=== PATIENT | male | born 1965 | race Caucasian/White ===

== ENCOUNTER 2020-07-11 07:44 | Outpatient (REF) | payer MEDICARE, MEDICAID, SELFPAY ==
--- NOTE | ~2020-07-11 | US_ITS ---
EXAMINATION: US ABDOMEN COMPLETE CLINICAL INFORMATION: Fatty change of liver. COMPARISON: CT abdomen and pelvis without contrast dated 10/27/2018. Ultrasound abdomen complete dated 01/09/2017 and 03/03/2012. TECHNIQUE: Real-time imaging of the abdominal viscera. Technically difficult study secondary to bowel gas and body habitus. FINDINGS: PANCREAS: Visualized body of the pancreas is homogeneous in echotexture. Rest of pancreas obscured by overlying gas. ABDOMINAL AORTA: The proximal, mid, and distal segments are normal in caliber. INFERIOR VENA CAVA: Visualized portions are normal. LIVER: The liver is normal in size. The liver contour is normal. The liver is diffusely echogenic. No focal hepatic lesion. There is no intrahepatic biliary duct dilatation seen. GALLBLADDER: Surgically absent. COMMON BILE DUCT: Normal in caliber measuring 0.6 cm in diameter. RIGHT KIDNEY: There are echogenic calcified vessels. No hydronephrosis. No renal calculi or focal parenchymal lesions. The kidney measures 11.6 cm in maximum dimension. LEFT KIDNEY: There are echogenic calcified vessels. No hydronephrosis. No renal calculi or focal parenchymal lesions. The kidney measures 12.2 cm in maximum dimension. SPLEEN: The spleen measures 13.7 cm in maximum dimension. FREE FLUID: None. US/US abdomen complete IMPRESSION: Mild hepatic steatosis. No focal lesion seen. Limited visualization of pancreas. There are echogenic calcified vessels in both kidneys but no echogenic stones or hydronephrosis.
== END 2020-07-11 07:45 | disposition home or self-care (01) ==
LOC: HO.US 07:44
PROVIDERS: PCP Family Medicine; Visit Provider Family Medicine
DX: K76.0 Fatty (change of) liver, not elsewhere classified (principal)
CPT/HCPCS: 76700

== ENCOUNTER 2020-12-26 10:09 | Outpatient (REF) | payer MEDICARE, MEDICAID, SELFPAY | END 2020-12-26 10:10 | disposition home or self-care (01) | LOC: HO.HMGCLDS 10:09 | PROVIDERS: PCP Family Medicine; Visit Provider Internal Medicine | DX: Z20.822 Contact with and (suspected) exposure to COVID-19 (principal) | CPT/HCPCS: C9803; U0003; U0005 ==

== ENCOUNTER 2021-04-14 09:10 | Outpatient (REF) | payer MEDICARE, MEDICAID, SELFPAY ==
--- NOTE | ~2021-04-14 | MM_ITS ---
EXAMINATION: BONE DENSITOMETRY CLINICAL INDICATION: Osteoporosis. COMPARISON: None (current study represents initial baseline exam). TECHNIQUE: Using a [employer] DXA System (software version: 13.1) manufactured by [employer], dual-energy x-ray absorptiometry was performed of the lumbar spine and left hip. The images are of good technical quality. Summary results are attached. FINDINGS: AP SPINE L1-L4: BMD 1.369 g/cm2, Z-score 0.8, T-score 1.2, normal. LEFT FEMUR, NECK: BMD 1.029 g/cm2, Z-score 0.0, T-score -0.3, normal. LEFT FEMUR, TOTAL: BMD 0.949 g/cm2, Z-score -1.1, T-score -1.1, osteopenia. IDENTIFIED RISK FACTORS: None listed. HISTORY OF FRACTURE: None listed. MEDICATIONS: Multivitamin. MM/XR DEXA axial skeleton IMPRESSION: 1. DIAGNOSIS: Osteopenia based on the lowest T-score value of -1.1 in the total femur applying World Health Organization criteria. 2. 10-YEAR FRACTURE RISK PREDICTION, FRAX: Major osteoporotic fracture (clinical spine, forearm, hip or shoulder) 2.1%. Hip fracture 0.1%. 3. Treatment Recommendations: NOF guidelines recommend consideration for treatment in postmenopausal women and men age 50 and older presenting with the following: -A hip or vertebral (clinical or morphometric) fracture. -T-score less than or equal to -2.5 at the femoral neck or spine after appropriate evaluation to exclude secondary causes. -Low bone mass at the hip or spine and a 10-year fracture probability by FRAX of greater than or equal to 3% for hip fracture or greater than or equal to 20% for major osteoporotic fracture based on the [place] adapted WHO algorithm. 4. Other Recommendations: All treatment decisions require clinical judgment and consideration of individual patient factors, including patient preferences, comorbidities, previous drug use, risk factors not captured in the FRAX model (e.g. frailty, falls, vitamin D deficiency, increased bone turnover, interval significant decline in bone density) and possible under or overestimation of fracture risk by FRAX. Additional medical evaluation for secondary cause of low bone mineral density may be appropriate. FUTURE SCAN RECOMMENDATION: People with diagnosed cases of osteoporosis or at high risk for fracture should have regular bone mineral density tests. For patients eligible for Medicare, routine testing is allowed once every 2 years. The testing frequency can be increased to one year for patients who have rapidly progressing disease, those who are receiving or discontinuing medical therapy to restore bone mass, or have additional risk factors.
== END 2021-04-14 09:11 | disposition home or self-care (01) ==
LOC: HO.MAMMO 09:10
PROVIDERS: PCP Family Medicine; Visit Provider Family Medicine
DX: Z13.820 Encounter for screening for osteoporosis (principal); M81.0 Age-related osteoporosis without current pathological fracture; M85.80 Other specified disorders of bone density and structure, unspecified site; Z79.899 Other long term (current) drug therapy
CPT/HCPCS: 77080

== ENCOUNTER 2022-12-07 08:20 | Inpatient (IN) | payer MEDICARE, MEDICAID, SELFPAY ==
[2022-12-07] VITALS (15 sets, daily range): BP systolic 108–159; BP diastolic 66–87; PULSE 94–127; RESP 14–28; TEMP 35.6–38.7; O2SAT 93–97; BMI 34.3
--- NOTE | ~2022-12-07 | XR_ITS ---
EXAMINATION: XR CHEST CLINICAL INFORMATION: ET tube COMPARISON: 03/14/2015 TECHNIQUE: Frontal view of the chest was obtained portably upright. FINDINGS: There is low lung volume bilaterally with by basilar atelectasis. Cardiomediastinal silhouette is prominent. There is an endotracheal tube seen with the tip approximately 3.7 cm above the alison. XR/XR chest 1V IMPRESSION: Bibasilar atelectasis and well-positioned endotracheal tube
--- NOTE | ~2022-12-07 | CT_ITS ---
EXAMINATION: CT ABDOMEN AND PELVIS WITH CONTRAST CLINICAL INFORMATION: Diffuse abdominal pain. COMPARISON: 10/27/2018 TECHNIQUE: Multidetector volumetric images were obtained from the superior aspect of the liver through the pubic symphysis following administration 85 mL of Omnipaque 350 intravenous contrast. Sagittal and coronal reformatted images were obtained on the technologist's workstation. Oral contrast: No This CT examination was performed using dose optimization techniques as appropriate, variously including the following: *Automated exposure control *Adjustment of mA and/or kV according to patient size (this includes techniques or standardized protocols for targeted exams where dose is matched to indication/reason for exam; i.e. extremities or head) *Use of iterative reconstruction technique DLP: 1057 mGy-cm FINDINGS: LUNG BASES: Trace pericardial effusion. LIVER, GALLBLADDER, AND BILIARY TREE: The liver is normal in size and contour with decreased attenuation. No focal hepatic lesion or biliary ductal dilatation is present. The gallbladder is surgically absent. There is a fluid collection adjacent to surgical clips in the gallbladder fossa measuring 3.0 x 2.5 cm. PANCREAS: No ductal dilatation. SPLEEN: Not enlarged. ADRENAL GLANDS: No adrenal masses. KIDNEYS AND URETERS: The kidneys are symmetric in size and enhancement. No hydronephrosis or perinephric stranding. BLADDER: Unremarkable. GASTROINTESTINAL TRACT: There is wall thickening of the sigmoid colon in the pelvis. There is associated extraluminal air within the sigmoid mesocolon with a focal collection of fluid and gas measuring 6.9 x 4.0 x 3.3 cm. There are extensive surrounding inflammatory changes and tiny pericolonic lymph nodes. There are few dilated small bowel loops adjacent to the area of inflammation measuring up to 4.2 cm possibly representing paralytic ileus. Appendix is within normal limits. LYMPH NODES: Subcentimeter retroperitoneal lymph nodes. VASCULAR: Normal caliber abdominal aorta PELVIC VISCERA: Unremarkable. OSSEOUS STRUCTURES: No destructive bone lesions. CT/CT abdomen pelvis w IV con IMPRESSION: Acute perforated sigmoid diverticulitis. Focal collection of fluid and gas in the sigmoid mesocolon measures 6.9 x 4.0 x 3.3 cm. Possible paralytic ileus of the small bowel in the region of inflammation. Enlarging fluid collection adjacent to surgical clips in the gallbladder fossa measuring 3.0 x 2.5 2.6 cm. Possible biloma. Consider MRI/MRCP for further evaluation. Hepatic steatosis. Findings were reviewed and discussed with Dr. Gotti 2:21 PM on 12/07/2022.
[2022-12-07 09:00] LABS: Basophils Percent Auto 0.2 % (0-2); Eosinophils Absolute Auto 0.1 X10*3/uL (0.0-0.4); Eosinophils Percent Auto 0.3 % (0-4); Hematocrit 44.4 % (42.0-52.0); Hemoglobin 15.7 g/dl (14.0-18.0); Imm Gran Abs Auto 0.19 X10*3/uL (0.00-0.03); Imm Gran Pct Auto 0.9 % (0.0-0.4); Lymphocytes Absolute Auto 0.9 X10*3/uL (1.2-4.9); Lymphocytes Percent Auto 4.4 % (20-40); MANUAL DIFF FLAG SCAN; Mean Corpuscular HGB Conc 35.4 g/dl (31.0-36.0); Mean Corpuscular Hemoglobin 33.3 pg (27.0-33.0); Mean Corpuscular Volume 94.1 fL (80.0-98.0); Mean Platelet Volume 9.3 fL (9.4-12.4); Monocytes Absolute Auto 1.6 X10*3/uL (0.1-1.2); Monocytes Percent Auto 7.9 % (2-11); Neutrophils Absolute Auto 17.5 x10*3/uL (2.0-8.3); Neutrophils Percent Auto 86.3 % (45-73); Platelet Count 289 X10*3/uL (160-400); Red Blood Count 4.72 X10*6/uL (4.60-5.80); Red Cell Distribution Width 12.6 % (11.0-16.0); SCAN SMEAR FLAG 1; White Blood Count 20.3 X10*3/uL (4.8-10.8)
[2022-12-07 09:18] LABS: Alanine Aminotransferase 20 U/L (0-40); Albumin Level 4.1 g/dL (3.5-5.0); Alkaline Phosphatase 52 U/L (39-117); Anion Gap 15 (12-20); Aspartate Amino Transferase 17 U/L (5-37); Bilirubin Direct 0.6 mg/dL (0.0-0.5); Bilirubin Total 1.3 mg/dL (0.0-1.0); Blood Urea Nitrogen 13 mg/dL (9-16); Calcium 9.5 mg/dL (8.4-10.2); Carbon Dioxide 20 mmol/L (22-29); Chloride 105 mmol/L (96-108); Creatinine Clr Calc Pharmacy 78.1; Estimated Glomerular Filt Rate 58; Glucose Random 166 mg/dL (60-115); Lipase 7 U/L (8-78); Potassium 3.8 mmol/L (3.3-5.1); Sodium 136 mmol/L (135-145); Total Protein 8.1 g/dL (6.5-8.0)
[2022-12-07 09:36] LABS: SLIDE REVIEW VERIFIED
[2022-12-07 09:59] LABS: Appearance Urine Clear; Color Urine Dark Yellow; Glucose Urine UA Negative (Negative); Leukocyte Esterase Urine Trace (Negative); Nitrite Urine Negative (Negative); PH 5.5 (5.0-9.0); Specific Gravity - Urine >= 1.030 (1.005-1.025); UMIC TRIGGER UACC YES; Urine Blood Small (1+) (Negative); Urine Ketones 15 mg/dL (Negative); Urine Protein 300 (3+) mg/dL (Neg-Trace)
[2022-12-07 10:13] LABS: Bacteria Urine None Seen (None Seen); Hyaline Casts Urine 0-2 /LPF (0-2); RBC Urine 0-2 /HPF (0-2); WBC Urine 0-5 /HPF (0-5)
--- NOTE | 2022-12-07 12:37 | ED_ITS ---
HPI - Abdominal Pain General Chief Complaint: Abdominal Pain Stated Complaint: abd pain Time Seen by Provider: 12/07/22 12:09 Source: patient Mode of arrival: ambulatory Limitations: no limitations History of Present Illness HPI narrative: 57 yo male with PMHx significant for diverticulitis, HIV, alcohol dependence, asthma, and HDL presenting to the ED today with shooting lower abdominal pain x3 days, worsening. Abomainal pain to bilateral lower abdomen, radiating to b/l flanks. States that eating makes this pain worse, has not eaten since last night. Last BM on arrival to ED, loose stools. No hematochezia or melena. Reports daily EtOH consumption, approximately 5 shots of liquor. Denies fever, chills, nausea, vomiting, dysuria or hematuria. Related Data Home Medications Medication Instructions Recorded Confirmed amlodipine 10 mg tablet 10 mg PO DAILY 12/07/22 12/07/22 aripiprazole 15 mg tablet 15 mg PO DAILY 12/07/22 12/07/22 bictegravir 50 mg-emtricitabine 1 tab PO BEDTIME 12/07/22 12/07/22 200 mg-tenofovir alafenam 25 mg tablet (Biktarvy) bupropion HCl 150 mg tablet,12 hr 150 mg PO BID 12/07/22 12/07/22 sustained-release famotidine 40 mg tablet 40 mg PO BEDTIME 12/07/22 12/07/22 lisinopril 40 mg tablet 40 mg PO DAILY 12/07/22 12/07/22 lorazepam 0.5 mg tablet 0.5 mg PO BID 12/07/22 12/07/22 mirtazapine 45 mg tablet 45 mg PO BEDTIME 12/07/22 12/07/22 montelukast 10 mg tablet 10 mg PO DAILY 12/07/22 12/07/22 rosuvastatin 5 mg tablet 5 mg PO DAILY 12/07/22 12/07/22 Allergies Allergy/AdvReac Type Severity Reaction Status Date / Time No Known Allergies Allergy Unverified 12/10/19 17:06 Review of Systems Review of Systems Constitutional: No fever, No chills, No fatigue, No malaise ENT/Mouth: No ear pain, No hearing loss, No nasal congestion, No sinus pain, No rhinorrhea, No sore throat Eyes: No eye pain, No swelling, No redness, No vision changes, No foreign body, No discharge Cardio: No chest pain, No palpitations, No dyspnea on exertion, No orthopnea, No edema Respiratory: No SOB, No cough, No sputum, No wheezing, No dyspnea, No hemoptysis GI: No nausea, No vomiting, No hematemesis, + abdominal pain, + diarrhea, No constipation, No hematochezia, No melena : No irregular bleeding, No dysuria, No frequency, No urgency, No hesitancy, No hematuria, MSK: No back pain, No neck pain, No joint pain, No myalgias Skin: No skin lesions, No rashes Neuro: No weakness, No numbness, No paresthesias, No LOC, No dizziness, No headache All other systems reveiwed and are negative. [facility] Past Medical History Attestation statement: The following information was validated with the patient. Source: old records reviewed and nursing notes reviewed Medical History (Updated 12/07/22 @ 17:00 by Iris Lira RN) Manic depression Hyperlipidemia Asthma ETOH abuse HIV (human immunodeficiency virus infection) Social History Social History Alcohol intake: current Alcohol intake frequency: 3 or more drinks per day Alcohol type: hard liquor Patient Tobacco Use Status: Tobacco use Unknown Smoked in Last 30 Days: No Use of substances other than those prescribed or required for medical reasons: Yes Substance Use Type: Marijuana Advance Directives: No Advance Directives Information Provided: No Physical Exam ED Vital Signs: Vital Signs - 24 hr 12/07/22 08:43 12/07/22 12:15 12/07/22 14:08 Temperature 96.1 F L 97.5 F Pulse Rate 127 H 113 H 112 H Respiratory Rate 18 14 20 Blood Pressure 125/70 133/85 123/80 Pulse Oximetry 96 97 95 Oxygen Delivery Method Room Air Room Air Room Air 12/07/22 15:15 12/07/22 15:24 12/07/22 16:41 Temperature 98.8 F 101.6 F H Pulse Rate 113 H 111 H Respiratory Rate 16 22 H 20 Blood Pressure 136/81 133/81 Pulse Oximetry 95 93 Oxygen Delivery Method Room Air Room Air 12/07/22 16:48 12/07/22 17:25 Temperature Pulse Rate 111 H 117 H Respiratory Rate 20 20 Blood Pressure 144/79 H 151/82 H Pulse Oximetry 94 94 Oxygen Delivery Method Room Air Room Air BMI result Body Mass Index 34.3 Vital signs notable for tachycardia, afebrile General: Toxic appearing, diaphoretic, noticeably uncomfortable Skin: Warm and dry. No rashes or lesions. Head: Normocephalic, atraumatic. EENT: Hearing is intact b/l. Conjunctiva clear. Sclera is anicteric. PERRLA. EOM intact. Moist mucous membranes. Neck: Supple without LAD. Normal ROM. Trachea midline.? Cardiac: Chest wall symmetric. Regular rate and rhythm. S1 and S1 appreciated. No MRG. No JVD. Lungs: CTA bilaterally. No rales, rhonchi, or wheezes. Normal respiratory effort without accessory muscle use. Abdomen: Healed scar consistent with previous cholecystectomy. No ecchyosis. Abdomen firm, distended, diffusely tender to palpation with guarding. Hypoactive bowel sounds throughout. No palpable masses.? Ext: Upper and lower extremities atraumatic. Full ROM throughout. Capillary refill <2 seconds in all extremities. Pulses 2+ equal and bilateral. No edema, cyanosis, or clubbing. Neuro: Alert and oriented x3. Normal speech. CN 2-12 grossly intact. Strength 5/5 intact throughout. Sensation intact to light touch. NV intact distally. Reflexes 2+ bilaterally. Ambulating with steady gait. Psych: Appropriate mood and affect. Responds appropriately to questions. Course Course Course Narrative: 1259-- Patient with leukocytosis to 20.3 with left shift. Normotensive and afebrile however tachycardic > infection suspected. Lactate, blood cultures, Zosyn ordered. Sepsis alert initiated. CT abdomen/pelvis ordered > concern for acute abdomen. Radiology aware. 4mg Morphine given. > chemistry reveals normal renal function. Lipase within normal limits. Urine without infection. 1433: Dr. Gotti's note: I took a critical result from the radiologist. Patient has a perforated sigmoid with a significant amount of free air and a large abscess collection I did discuss these findings with the patient and also with the covering surgeon, Dr. Webster who evaluated the patient in the emergency department. The patient will go directly to the operating room for further management. I did order a type and screen, morphine 4 mg IV, lactated Ringer's 1 L IV and then lactated Ringer's at 150 mL/hr. Patient already received Zosyn 3.375 mg IV. Medical Decision Making Medical Decision Making [facility] Narrative: 57 yo male with PMHx significant for diverticulitis, HIV, alcohol dependence, asthma, and HDL presenting to the ED today with shooting lower abdominal pain x3 days, worsening. Vital signs notable for tachycardia. Patient toxic appearing, diaphoretic, in obvious discomfort. Abdomen firm, distended, diffusely tender to palpation with guarding. Hypoactive bowel sounds throughout. No palpable masses.?Otherwise WNL. Clinical concern for appendicits vs pancreatitis vs vs diverticulitis vs bowel obstruction vs bowel perforation vs ischemic bowel > labs and imaging ordered. Unlikely ACS or dissection. Differential Diagnosis Differential Diagnoses: The differential diagnosis associated with the presentation includes Clinical concern for appendicits vs pancreatitis vs diverticulitis vs bowel obstruction vs bowel perforation vs ichemic bowel > labs and imaging ordered. Unlikely ACS or dissection. Admission/Observation Consideration of admission/observation: Escalation of care including admission/observation considered Admitted to surgery. Consult Healthcare Provider Management of the patient was discussed with: Tin Pourer (Dr. Webster, general surgery) Lab Data [facility] Lab Attestation statement: I reviewed the patient's lab results. See above course narrative. 12/07/22 08:53 12/07/22 08:53 Labs: Lab Results 12/07/22 12/07/22 12/07/22 Range/Units 08:53 09:52 12:56 WBC 20.3 H (4.8-10.8) X10*3/uL RBC 4.72 (4.60-5.80) X10*6/uL Hgb 15.7 (14.0-18.0) g/dl Hct 44.4 (42.0-52.0) % MCV 94.1 (80.0-98.0) fL MCH 33.3 H (27.0-33.0) pg MCHC 35.4 (31.0-36.0) g/dl RDW 12.6 (11.0-16.0) % Plt Count 289 (160-400) X10*3/uL MPV 9.3 L (9.4-12.4) fL Immature Gran % (Auto) 0.9 H (0.0-0.4) % Neut % (Auto) 86.3 H (45-73) % Lymph % (Auto) 4.4 L (20-40) % Banner % (Auto) 7.9 (2-11) % Eos % (Auto) 0.3 (0-4) % Baso % (Auto) 0.2 (0-2) % Lymph # (Auto) 0.9 L (1.2-4.9) X10*3/uL Banner # (Auto) 1.6 H (0.1-1.2) X10*3/uL Eos # (Auto) 0.1 (0.0-0.4) X10*3/uL Baso # (Auto) 0.0 (0.0-0.2) X10*3/uL Abs Immat Gran (auto) 0.19 H (0.00-0.03) X10*3/uL Absolute Neuts (auto) 17.5 H (2.0-8.3) x10*3/uL Absolute Nucleated RBC 0.000 (0.0-0.012) X10*3/uL Nucleated RBC % (auto) 0.0 (0.0-0.2) /100WBC Smear Tech's Comments VERIFIED Sodium 136 (135-145) mmol/L Potassium 3.8 (3.3-5.1) mmol/L Chloride 105 (96-108) mmol/L Carbon Dioxide 20 L (22-29) mmol/L Anion Gap 15 (12-20) BUN 13 (9-16) mg/dL Creatinine 1.27 (0.5-1.4) mg/dL Estim Creat Clear Calc 78.1 Estimated GFR 58 Random Glucose 166 H (60-115) mg/dL Lactic Acid 1.7 (0.5-2.0) mmol/L Calcium 9.5 (8.4-10.2) mg/dL Total Bilirubin 1.3 H (0.0-1.0) mg/dL Direct Bilirubin 0.6 H (0.0-0.5) mg/dL AST 17 (5-37) U/L ALT 20 (0-40) U/L Alkaline Phosphatase 52 (39-117) U/L Total Protein 8.1 H (6.5-8.0) g/dL Albumin 4.1 (3.5-5.0) g/dL Lipase 7 L (8-78) U/L Urine Color Dark Yellow Urine Appearance Clear Urine pH 5.5 (5.0-9.0) Ur Specific [place] >= 1.030 H (1.005-1.025) Urine Protein 300 (3+) H (Neg-Trace) mg/dL Urine Glucose (UA) Negative (Negative) mg/dL Urine Ketones 15 (Negative) mg/dL Urine Blood Small (1+) H (Negative) Urine Nitrite Negative (Negative) Ur Leukocyte Esterase Trace H (Negative) Urine RBC 0-2 (0-2) /HPF Urine WBC 0-5 (0-5) /HPF Ur Squamous Epith Cells 3-5 (0-2) /HPF Urine Bacteria None Seen (None Seen) Hyaline Casts 0-2 (0-2) /LPF Urine Opiates Screen Not Detected (Not Detect) Urine Fentanyl Screen Not Detected (Not Detect) Ur Barbiturates Screen Not Detected (Not Detect) Ur Phencyclidine Scrn POSITIVE H (Not Detect) Ur Amphetamines Screen Not Detected (Not Detect) U Benzodiazepines Scrn Not Detected (Not Detect) Urine Cocaine Screen Not Detected (Not Detect) U Marijuana (THC) Screen POSITIVE H (Not Detect) Ethyl Alcohol < 10 mg/dL Blood Type Antibody Screen 12/07/22 Range/Units 14:49 WBC (4.8-10.8) X10*3/uL RBC (4.60-5.80) X10*6/uL Hgb (14.0-18.0) g/dl Hct (42.0-52.0) % MCV (80.0-98.0) fL MCH (27.0-33.0) pg MCHC (31.0-36.0) g/dl RDW (11.0-16.0) % Plt Count (160-400) X10*3/uL MPV (9.4-12.4) fL Immature Gran % (Auto) (0.0-0.4) % Neut % (Auto) (45-73) % Lymph % (Auto) (20-40) % Banner % (Auto) (2-11) % Eos % (Auto) (0-4) % Baso % (Auto) (0-2) % Lymph # (Auto) (1.2-4.9) X10*3/uL Banner # (Auto) (0.1-1.2) X10*3/uL Eos # (Auto) (0.0-0.4) X10*3/uL Baso # (Auto) (0.0-0.2) X10*3/uL Abs Immat Gran (auto) (0.00-0.03) X10*3/uL Absolute Neuts (auto) (2.0-8.3) x10*3/uL Absolute Nucleated RBC (0.0-0.012) X10*3/uL Nucleated RBC % (auto) (0.0-0.2) /100WBC Smear Tech's Comments Sodium (135-145) mmol/L Potassium (3.3-5.1) mmol/L Chloride (96-108) mmol/L Carbon Dioxide (22-29) mmol/L Anion Gap (12-20) BUN (9-16) mg/dL Creatinine (0.5-1.4) mg/dL Estim Creat Clear Calc Estimated GFR Random Glucose (60-115) mg/dL Lactic Acid (0.5-2.0) mmol/L Calcium (8.4-10.2) mg/dL Total Bilirubin (0.0-1.0) mg/dL Direct Bilirubin (0.0-0.5) mg/dL AST (5-37) U/L ALT (0-40) U/L Alkaline Phosphatase (39-117) U/L Total Protein (6.5-8.0) g/dL Albumin (3.5-5.0) g/dL Lipase (8-78) U/L Urine Color Urine Appearance Urine pH (5.0-9.0) Ur Specific [place] (1.005-1.025) Urine Protein (Neg-Trace) mg/dL Urine Glucose (UA) (Negative) mg/dL Urine Ketones (Negative) mg/dL Urine Blood (Negative) Urine Nitrite (Negative) Ur Leukocyte Esterase (Negative) Urine RBC (0-2) /HPF Urine WBC (0-5) /HPF Ur Squamous Epith Cells (0-2) /HPF Urine Bacteria (None Seen) Hyaline Casts (0-2) /LPF Urine Opiates Screen (Not Detect) Urine Fentanyl Screen (Not Detect) Ur Barbiturates Screen (Not Detect) Ur Phencyclidine Scrn (Not Detect) Ur Amphetamines Screen (Not Detect) U Benzodiazepines Scrn (Not Detect) Urine Cocaine Screen (Not Detect) U Marijuana (THC) Screen (Not Detect) Ethyl Alcohol mg/dL Blood Type A Positive Antibody Screen NEGATIVE Independent Interpretation I performed an independent interpretation of an: CT Scan Radiology Impression Discussion of test interpretation with radiology: I have reviewed the radiologist's reading. Radiologist Impression: CT abdomen pelvis w IV con IMPRESSION: Acute perforated sigmoid diverticulitis. Focal collection of fluid and gas in the sigmoid mesocolon measures 6.9 x 4.0 x 3.3 cm. Possible paralytic ileus of the small bowel in the region of inflammation. Enlarging fluid collection adjacent to surgical clips in the gallbladder fossa measuring 3.0 x 2.5 2.6 cm. Possible biloma. Consider MRI/MRCP for further evaluation. Hepatic steatosis. Findings were reviewed and discussed with Dr. Gotti 2:21 PM on 12/07/2022. Prescription Management I considered prescription management with: Pain Medication and Antibiotic Chronic Conditions Patient?s care impacted by: Other (diverticulitis) Medications Administered Generic Name Dose Route Start Last Admin Trade Name Freq PRN Reason Stop Dose Admin Lactated Ringer's 1,000 mls @ 150 mls/hr 12/07/22 14:45 12/07/22 15:21 Lr IVCONT 150 mls/hr .[id number] ELSY Administration Sodium Chloride 3 ml 12/07/22 16:00 12/07/22 16:17 0.9 % Sodium Chloride Flush 3 Ml Syringe IVFLUSH Not Given QSHIFT ELSY Discontinued Medications Generic Name Dose Route Start Last Admin Trade Name Freq PRN Reason Stop Dose Admin Piperacillin Sod/Tazobactam 50 mls @ 100 mls/hr 12/07/22 12:34 12/07/22 13:45 Sod 3.375 gm/ Sodium Chloride IV 12/07/22 13:03 Infused ONCE ONE Infusion Lactated Ringer's 1,000 mls @ 999 mls/hr 12/07/22 14:45 12/07/22 16:17 Lr IV 12/07/22 15:45 Infused .Q1H1M ELSY Infusion Iohexol 100 ml 12/07/22 13:14 12/07/22 13:15 Iohexol 350 Mg/Ml 100 Ml Infus..Btl IV 12/07/22 13:15 85 ml ONCE ONE Administration Morphine Sulfate 4 mg 12/07/22 12:47 12/07/22 12:58 Morphine Sulfate 4 Mg/Ml Cartridge IVPUSH 12/07/22 12:48 4 mg ONCE ONE Administration Protocol Morphine Sulfate 4 mg 12/07/22 14:31 12/07/22 15:15 Morphine Sulfate 4 Mg/Ml Cartridge IVPUSH 12/07/22 14:32 4 mg ONCE STA Administration Protocol Critical Care Time Critical Care Time Critical Care Time: Yes Total Critical Care Time: 35 Attestation: Critical Care: The patient was critically ill with a high probability of imminent or life threatening deterioration. I spent greater than 30 minutes of discontinuous time evaluating the patient,delivering critical care at the bedside, discussing and evaluating pertinent data with consultants. Critical care time does not include time spent performing separately billable procedures or teaching. Total time spent performing critical care was 35 minutes. Discharge Plan Discharge Clinical Impression: Perforated sigmoid colon, Abdominal visceral abscess Patient Disposition: Admitted As Inpatient
[2022-12-07] MEDS: Morphine Sulfate 4 MG/ML CARTRIDGE IVPUSH ×2 (12:58→15:15)
[2022-12-07] MEDS: Piperacillin Sodium/Tazobactam 3.375 GM in 0.9 % Sodium Chloride 50 ML IV ×2 (12:59→19:36)
--- NOTE | 2022-12-07 13:07 | PC.NURSE ---
pt alert and oriented, skin pwd, respirations even and unlabored, pt presents to the ed with lower abd pain and diarrhea, abd very distended and firm, positive bowel sounds in all 4 quadrants, pt denies nausea and sob. pt is a daily hard liquor drinker but states he never had issues with alcohol withdraws if not drinking, last drink was sometimes yesterday. sinus tach on the monitor
[2022-12-07] MEDS: iohexoL 350 MG/ML 100 ML INFUS..BTL IV (13:15)
[2022-12-07 13:23] LABS: Lactic Acid 1.7 mmol/L (0.5-2.0)
[2022-12-07 13:27] LABS: Amphetamine Screen Urine Not Detected (Not Detect); Barbiturates, Urine Not Detected (Not Detect); Benzodiazepines Screen Urine Not Detected (Not Detect); Cannabinoid Screen Urine POSITIVE (Not Detect); Cocaine Screen Urine Not Detected (Not Detect); Fentanyl, urine Not Detected (Not Detect); Opiate Screen Urine Not Detected (Not Detect); Phencyclidine Screen Urine POSITIVE (Not Detect)
[2022-12-07 13:32] LABS: Ethanol < 10 mg/dL
[2022-12-07] MEDS: Lactated Ringers 1,000 ML 999 ML IV (15:16)
[2022-12-07] MEDS: Lactated Ringers 1,000 ML 150 ML IVCONT ×2 (15:21→20:12)
--- NOTE | 2022-12-07 15:39 | PC.NURSE ---
assumed care of pt at 1415, plan for OR w Dr Webster, 2nd IV established R forearm, LR bolus running, maintenance fluids running at 150ml/hr. pt medicated for 5/10 abd pain per MAY. resting quietly pending transport to OR.
--- NOTE | 2022-12-07 15:42 | PM.HPGS ---
History of Present Illness History of Present Illness Date of Service: 12/07/22 Chief complaint: abd pain Narrative: Bruno Blue is a 57 year old male who presents here septic with approximately 3 days of progressively worsening lower abdominal pain. Patient has never had such symptoms before. Normally tolerates a regular diet. He has uneventful bowel habits. Chart was reviewed patient evaluated. Patient has a significant ETOH use history. White blood cell 20 PMFSH Social History Social History Alcohol intake: current Alcohol intake frequency: 3 or more drinks per day Alcohol type: hard liquor Smoked in Last 30 Days: No Use of substances other than those prescribed or required for medical reasons: Yes Substance Use Type: Marijuana Advance Directives: No Advance Directives Information Provided: No Meds Allergies Allergy/AdvReac Type Severity Reaction Status Date / Time No Known Allergies Allergy Unverified 12/10/19 17:06 Active Medications: Current Medications Lactated Ringer's (Lr) 1,000 mls @ 999 mls/hr IV .Q1H1M [facility] Stop: 12/07/22 15:45 Last Admin: 12/07/22 15:16 Dose: 999 mls/hr Lactated Ringer's (Lr) 1,000 mls @ 150 mls/hr IVCONT .Q6H40M [facility] Last Admin: 12/07/22 15:21 Dose: 150 mls/hr Home Medications Medication Instructions Recorded Confirmed Last Taken Type amlodipine 10 mg tablet 10 mg PO DAILY 12/07/22 Unknown History aripiprazole 15 mg tablet 15 mg PO DAILY 12/07/22 Unknown History bictegravir 50 mg-emtricitabine 1 tab PO BEDTIME 12/07/22 Unknown History 200 mg-tenofovir alafenam 25 mg tablet (Biktarvy) bupropion HCl 150 mg tablet,12 hr 150 mg PO BID 12/07/22 Unknown History sustained-release famotidine 40 mg tablet 40 mg PO BEDTIME 12/07/22 Unknown History lisinopril 40 mg tablet 40 mg PO DAILY 12/07/22 Unknown History lorazepam 0.5 mg tablet 0.5 mg PO BID 12/07/22 Unknown History mirtazapine 45 mg tablet 45 mg PO BEDTIME 12/07/22 Unknown History montelukast 10 mg tablet 10 mg PO DAILY 12/07/22 Unknown History rosuvastatin 5 mg tablet 5 mg PO DAILY 12/07/22 Unknown History Physical Exam Vital Signs: Vital Signs: Last Vital Signs Temp 98.8 F 12/07/22 15:24 Pulse 113 H 12/07/22 15:24 Resp 22 H 12/07/22 15:24 BP 136/81 12/07/22 15:24 Pulse Ox 95 12/07/22 15:24 O2 Del Method Room Air 12/07/22 15:24 BMI result Body Mass Index 34.3 Const: Other: Moderately corpulent male in significant abdominal distress Chest: Other: Chest breath sounds bilaterally, HS 1 in 2 GI: Other: Profoundly distended abdomen with rebound tenderness throughout the lower abdomen. Patient states that this is not normal size of his abdomen. Marked percussion tenderness consistent with free air seen on CT scan . Discussed with the patient at length his clinical situation. Patient has perforated diverticulitis with profound massive free air with an acute abdomen. Fortunately, this is not amenable to conservative therapy or interventional radiologic drainage. Patient requires emergent surgical intervention. Exploratory laparotomy with most likely sigmoid resection with end colostomy and Felipe's pouch we discussed with the patient and risks, benefits, and alternatives were reviewed and included but not limited to bleeding, infection, abscess, numbness, pain, scarring and the patient wishes to proceed. All questions were answered. Arrangements were made for OR this afternoon. Palpation (GI): Hepatosplenomegaly present Results Results Labs: Short CBC 12/07/22 Range/Units 08:53 WBC 20.3 H (4.8-10.8) X10*3/uL Hgb 15.7 (14.0-18.0) g/dl Hct 44.4 (42.0-52.0) % Plt Count 289 (160-400) X10*3/uL BMP 12/07/22 08:53 Sodium 136 Potassium 3.8 Chloride 105 Carbon Dioxide 20 L BUN 13 Creatinine 1.27 Calcium 9.5 Liver Function 12/07/22 Range/Units 08:53 Total Bilirubin 1.3 H (0.0-1.0) mg/dL Direct Bilirubin 0.6 H (0.0-0.5) mg/dL AST 17 (5-37) U/L ALT 20 (0-40) U/L Alkaline Phosphatase 52 (39-117) U/L Albumin 4.1 (3.5-5.0) g/dL Urine 12/07/22 Range/Units 09:52 Urine Color Dark Yellow Urine Appearance Clear Urine pH 5.5 (5.0-9.0) Ur Specific [place] >= 1.030 H (1.005-1.025) Urine Protein 300 (3+) H (Neg-Trace) mg/dL Urine Glucose (UA) Negative (Negative) mg/dL Assessment and Plan (1) Perforated sigmoid colon: Status: Acute Plan CT scan was reviewed with Dr. Soliman, interventional radiologist. Unfortunately this is not consistent with an abscess or more consistent with massive free air and not something drained well by Interventional Radiology. Please see above plan under abdomen Time Spent With Patient Time: Total time managing care of this patient today ____ minutes. Quality Stroke Does the patient have a stroke diagnosis?: No VTE Prior VTE?: No VTE Risk Level:: Surgical - low VTE Device Contraindication: N/A - Device Ordered VTE Drug Contraindication: Treatment Not Indicated Procedures Date of Service Date of Service: 12/07/22
--- NOTE | 2022-12-07 16:41 | PC.NURSE ---
RN-RN report given to PACU, pt transported by surgeon to [facility].
--- NOTE | 2022-12-07 16:56 | HO.ANESPROP2 ---
HPI - Anesthesia Eval Consult details Narrative: for expl laparotomy for perf viscus PMFSH Active Problems Active Problems: All Active Problems (Updated 12/07/22 @ 14:32 by Nilesh Gotti MD) Abdominal visceral abscess (Acute) Perforated sigmoid colon (Acute) Past Medical History Medical History (Updated 12/07/22 @ 17:00 by Iris Lira RN) Manic depression Hyperlipidemia Asthma ETOH abuse HIV (human immunodeficiency virus infection) Family History Family history of problems with anesthesia: No Surgical History History of Problems with Anesthesia: Yes (h/o difficult intubation) Social History Social History Alcohol intake: current Alcohol intake frequency: 3 or more drinks per day Alcohol type: hard liquor Patient Tobacco Use Status: Tobacco use Unknown Smoked in Last 30 Days: No Use of substances other than those prescribed or required for medical reasons: Yes Substance Use Type: Marijuana Advance Directives: No Advance Directives Information Provided: No Meds Allergies Allergy/AdvReac Type Severity Reaction Status Date / Time No Known Allergies Allergy Unverified 12/10/19 17:06 Active Medications: Current Medications Hydromorphone HCl (Hydromorphone Hcl 1 Mg/Ml Syringe) 0.5 mg IVPUSH Q4H PRN; Protocol PRN Reason: Pain, Severe (Pain Scale 7-10) Lactated Ringer's (Lr) 1,000 mls @ 150 mls/hr IVCONT .Q6H40M [facility] Last Admin: 12/07/22 15:21 Dose: 150 mls/hr Acetaminophen (Ofirmev) 1,000 mg in 100 mls @ 400 mls/hr IV Q6H ELSY Piperacillin Sod/Tazobactam (Sod 3.375 gm/ Sodium Chloride) 50 mls @ 100 mls/hr IV Q6H ELSY Lidocaine (Lidocaine 5 % Ointment 35 Gm) 1 appl TOPICAL ONCE ONE Stop: 12/07/22 17:01 Oxycodone HCl (Oxycodone Hcl Immed Release 5 Mg Tablet) 5 mg PO Q4H PRN PRN Reason: Pain, Moderate(Pain Scale 4-6) Sodium Chloride (0.9 % Sodium Chloride Flush 3 Ml Syringe) 3 ml IVFLUSH QSHIFT [facility] Last Admin: 12/07/22 16:17 Dose: Not Given Home Medications Medication Instructions Recorded Confirmed Last Taken Type amlodipine 10 mg tablet 10 mg PO DAILY 12/07/22 12/07/22 12/06/22 History aripiprazole 15 mg tablet 15 mg PO DAILY 12/07/22 12/07/22 12/06/22 History bictegravir 50 mg-emtricitabine 1 tab PO BEDTIME 12/07/22 12/07/22 12/06/22 History 200 mg-tenofovir alafenam 25 mg tablet (Biktarvy) bupropion HCl 150 mg tablet,12 hr 150 mg PO BID 12/07/22 12/07/22 12/06/22 History sustained-release famotidine 40 mg tablet 40 mg PO BEDTIME 12/07/22 12/07/22 12/06/22 History lisinopril 40 mg tablet 40 mg PO DAILY 12/07/22 12/07/22 12/06/22 History lorazepam 0.5 mg tablet 0.5 mg PO BID 12/07/22 12/07/22 12/06/22 History mirtazapine 45 mg tablet 45 mg PO BEDTIME 12/07/22 12/07/22 12/06/22 History montelukast 10 mg tablet 10 mg PO DAILY 12/07/22 12/07/22 12/06/22 History rosuvastatin 5 mg tablet 5 mg PO DAILY 12/07/22 12/07/22 12/06/22 History Exam Exam Date and Time: December 07, [id number] Height,Weight and Vital Signs: Height 5 ft 10 in Weight 108.5 kg Last Vital Signs Temp 101.6 F H 12/07/22 16:41 Pulse 111 H 12/07/22 16:48 Resp 20 12/07/22 16:48 BP 144/79 H 12/07/22 16:48 Pulse Ox 94 12/07/22 16:48 O2 Del Method Room Air 12/07/22 16:48 Pertinent Lab Results Pertinent Lab Results: Laboratory Tests 12/07/22 12/07/22 12/07/22 08:53 09:52 12:56 WBC 20.3 H RBC 4.72 Hgb 15.7 Hct 44.4 MCV 94.1 MCH 33.3 H MCHC 35.4 RDW 12.6 Plt Count 289 MPV 9.3 L Immature Gran % (Auto) 0.9 H Neut % (Auto) 86.3 H Lymph % (Auto) 4.4 L [place] % (Auto) 7.9 Eos % (Auto) 0.3 Baso % (Auto) 0.2 Lymph # (Auto) 0.9 L [place] # (Auto) 1.6 H Eos # (Auto) 0.1 Baso # (Auto) 0.0 Abs Immat Gran (auto) 0.19 H Absolute Neuts (auto) 17.5 H Absolute Nucleated RBC 0.000 Nucleated RBC % (auto) 0.0 Smear Tech's Comments VERIFIED Sodium 136 Potassium 3.8 Chloride 105 Carbon Dioxide 20 L Anion Gap 15 BUN 13 Creatinine 1.27 Estim Creat Clear Calc 78.1 Estimated GFR 58 Random Glucose 166 H Lactic Acid 1.7 Calcium 9.5 Total Bilirubin 1.3 H Direct Bilirubin 0.6 H AST 17 ALT 20 Alkaline Phosphatase 52 Total Protein 8.1 H Albumin 4.1 Lipase 7 L Urine Color Dark Yellow Urine Appearance Clear Urine pH 5.5 Ur Specific [place] >= 1.030 H Urine Protein 300 (3+) H Urine Glucose (UA) Negative Urine Ketones 15 Urine Blood Small (1+) H Urine Nitrite Negative Ur Leukocyte Esterase Trace H Urine RBC 0-2 Urine WBC 0-5 Ur Squamous Epith Cells 3-5 Urine Bacteria None Seen Hyaline Casts 0-2 Urine Opiates Screen Not Detected Urine Fentanyl Screen Not Detected Ur Barbiturates Screen Not Detected Ur Phencyclidine Scrn POSITIVE H Ur Amphetamines Screen Not Detected U Benzodiazepines Scrn Not Detected Urine Cocaine Screen Not Detected U Marijuana (THC) Screen POSITIVE H Ethyl Alcohol < 10 Blood Type Antibody Screen 12/07/22 14:49 WBC RBC Hgb Hct MCV MCH MCHC RDW Plt Count MPV Immature Gran % (Auto) Neut % (Auto) Lymph % (Auto) [place] % (Auto) Eos % (Auto) Baso % (Auto) Lymph # (Auto) [place] # (Auto) Eos # (Auto) Baso # (Auto) Abs Immat Gran (auto) Absolute Neuts (auto) Absolute Nucleated RBC Nucleated RBC % (auto) Smear Tech's Comments Sodium Potassium Chloride Carbon Dioxide Anion Gap BUN Creatinine Estim Creat Clear Calc Estimated GFR Random Glucose Lactic Acid Calcium Total Bilirubin Direct Bilirubin AST ALT Alkaline Phosphatase Total Protein Albumin Lipase Urine Color Urine Appearance Urine pH Ur Specific [place] Urine Protein Urine Glucose (UA) Urine Ketones Urine Blood Urine Nitrite Ur Leukocyte Esterase Urine RBC Urine WBC Ur Squamous Epith Cells Urine Bacteria Hyaline Casts Urine Opiates Screen Urine Fentanyl Screen Ur Barbiturates Screen Ur Phencyclidine Scrn Ur Amphetamines Screen U Benzodiazepines Scrn Urine Cocaine Screen U Marijuana (THC) Screen Ethyl Alcohol Blood Type A Positive Antibody Screen NEGATIVE Airway Mallampati Class: III (anterior; large, short neck) TM Dist: <=3cm Neck ROM: Full Partial: Lower Heart: ok Lungs: Sat 94% on room air, clear chest, normal exp phase Other: very large, rotund distended abdomen Assessment and Plan Assessment Anesthesia Assessment: Anesthesia Plan Discussed and Chart Reviewed Final Anesthetic Review Family History of Problems with Anesthesia: No History of Problems with Anesthesia: Yes (h/o difficult intubation) NPO: Yes ASA Class: III and Emergency Final Preanesthetic Review: No Changes in Pt Med Stat, Meds/Allgs Chart Reviewed, Consent Obtained/Reviewed and Anes Risks/Benef Reviewed Patient Risk: High Procedure Risk: Intermediate Anesthetic Plan Anesthetic Plan: GA and Agree w/ Assess. and Plan Disposition: Inp. Admit - ICU
--- NOTE | 2022-12-07 16:58 | PHA.MEDREC ---
Pharmacy Consult ? Medication Reconciliation Pharmacy has completed the medication reconciliation. SPOKE TO PATIENT IN PACU PATRICK
--- NOTE | 2022-12-07 17:20 | PC.NURSE ---
respiratory at bedside to administer lidocaine mist prior to intubation. patient family at bedside.
--- NOTE | 2022-12-07 17:31 | PM.CCHP ---
History of Present Illness Date of Service: 12/07/22 Attending physician on admission: Jose G Webster Chief Complaint: perforated sigmoid viscus 57-year-old moderately obese male background of hypertension and HIV disease on anti retroviral with a normal CD4 and CD8 lymphocyte counts presented with abdominal pain with fever and chills found to have a perforated viscus namely sigmoid probably diverticulitis and was pending entry to the OR and I came did bedside echo which demonstrated mild concentric left ventricular hypertrophy with hyperdynamic ventricle and globally normal systolic wall motion no primary valve or pericardial disease and normal IVC size with good collapse with inspiratory effort Review of Systems Review of Systems: Yes all other systems are reviewed and are negative [facility] Past Medical History Medical History (Updated 12/08/22 @ 13:05 by Patricia Wood MD) Hypertensive cardiovascular disease or syndrome Manic depression Hyperlipidemia Asthma ETOH abuse HIV (human immunodeficiency virus infection) Social History Social History Household Members: Unknown / Unable to assess Housing: Unknown / Unable to assess Unable to assess alcohol history related to: Unable to respond Alcohol intake: current Alcohol intake frequency: 3 or more drinks per day Alcohol type: hard liquor Patient Tobacco Use Status: Tobacco use Unknown Smoked in Last 30 Days: No Use of substances other than those prescribed or required for medical reasons: Unable to respond Substance Use Type: Marijuana Currently Displaying Signs/Symptoms of Drug Intoxication Withdrawal: No Advance Directives: No Advance Directives Information Provided: No Recently lost weight without trying: Unsure Poor oral hygiene: No Meds Allergies Allergy/AdvReac Type Severity Reaction Status Date / Time No Known Allergies Allergy Unverified 12/10/19 17:06 Active Medications: Current Medications Heparin Sodium (Porcine) (Heparin Sodium,Porcine 5,000 Unit/Ml Vial) 5,000 unit SUBCUT Q8H ELSY Hydromorphone HCl (Hydromorphone Hcl 1 Mg/Ml Syringe) 0.5 mg IVPUSH Q4H PRN; Protocol PRN Reason: Pain, Severe (Pain Scale 7-10) Lactated Ringer's (Lr) 1,000 mls @ 150 mls/hr IVCONT .Q6H40M [facility] Last Admin: 12/07/22 15:21 Dose: 150 mls/hr Acetaminophen (Ofirmev) 1,000 mg in 100 mls @ 400 mls/hr IV Q6H [facility] Piperacillin Sod/Tazobactam (Sod 3.375 gm/ Sodium Chloride) 50 mls @ 100 mls/hr IV Q6H [facility] Sodium Chloride (Ns) 1,000 mls @ 150 mls/hr IVCONT .Q6H40M [facility] Oxycodone HCl (Oxycodone Hcl Immed Release 5 Mg Tablet) 5 mg PO Q4H PRN PRN Reason: Pain, Moderate(Pain Scale 4-6) Sodium Chloride (0.9 % Sodium Chloride Flush 3 Ml Syringe) 3 ml IVFLUSH QSHIFT [facility] Last Admin: 12/07/22 16:17 Dose: Not Given Home Medications Medication Instructions Recorded Confirmed Last Taken Type amlodipine 10 mg tablet 10 mg PO DAILY 12/07/22 12/07/22 12/06/22 History aripiprazole 15 mg tablet 15 mg PO DAILY 12/07/22 12/07/22 12/06/22 History bictegravir 50 mg-emtricitabine 1 tab PO BEDTIME 12/07/22 12/07/22 12/06/22 History 200 mg-tenofovir alafenam 25 mg tablet (Biktarvy) bupropion HCl 150 mg tablet,12 hr 150 mg PO BID 12/07/22 12/07/22 12/06/22 History sustained-release famotidine 40 mg tablet 40 mg PO BEDTIME 12/07/22 12/07/22 12/06/22 History lisinopril 40 mg tablet 40 mg PO DAILY 12/07/22 12/07/22 12/06/22 History lorazepam 0.5 mg tablet 0.5 mg PO BID 12/07/22 12/07/22 12/06/22 History mirtazapine 45 mg tablet 45 mg PO BEDTIME 12/07/22 12/07/22 12/06/22 History montelukast 10 mg tablet 10 mg PO DAILY 12/07/22 12/07/22 12/06/22 History rosuvastatin 5 mg tablet 5 mg PO DAILY 12/07/22 12/07/22 12/06/22 History Physical Exam Vital Signs: Vital Signs: Last Vital Signs Temp 101.6 F H 12/07/22 16:41 Pulse 117 H 12/07/22 17:25 Resp 20 12/07/22 17:25 BP 151/82 H 12/07/22 17:25 Pulse Ox 94 09/15/23 17:25 O2 Del Method Room Air 12/07/22 17:25 BMI result Body Mass Index 34.3 Cognitive function and neurologic exam intact Bedside echo with concentric LVH and hyperdynamic with euvolemia judged by the IVC Abdomen quite distended and tender in particular left lower quadrant Chest no adventitious sounds Skin is intact no rashes Results Labs 12/08/22 04:59 12/08/22 04:59 Labs: Laboratory Results - last 24 hr 12/07/22 12/07/22 12/07/22 08:53 09:52 12:56 MCV 94.1 MCH 33.3 H MCHC 35.4 RDW 12.6 Plt Count 289 MPV 9.3 L Immature Gran % (Auto) 0.9 H Neut % (Auto) 86.3 H Lymph % (Auto) 4.4 L [place] % (Auto) 7.9 Eos % (Auto) 0.3 Baso % (Auto) 0.2 Lymph # (Auto) 0.9 L [place] # (Auto) 1.6 H Eos # (Auto) 0.1 Baso # (Auto) 0.0 Abs Immat Gran (auto) 0.19 H Absolute Neuts (auto) 17.5 H Absolute Nucleated RBC 0.000 Nucleated RBC % (auto) 0.0 Smear Tech's Comments VERIFIED Anion Gap 15 Estim Creat Clear Calc 78.1 Estimated GFR 58 Random Glucose 166 H Lactic Acid 1.7 Calcium 9.5 Total Bilirubin 1.3 H Direct Bilirubin 0.6 H AST 17 ALT 20 Alkaline Phosphatase 52 Total Protein 8.1 H Albumin 4.1 Lipase 7 L Urine Color Dark Yellow Urine Appearance Clear Urine pH 5.5 Ur Specific [place] >= 1.030 H Urine Protein 300 (3+) H Urine Glucose (UA) Negative Urine Ketones 15 Urine Blood Small (1+) H Urine Nitrite Negative Ur Leukocyte Esterase Trace H Urine RBC 0-2 Urine WBC 0-5 Ur Squamous Epith Cells 3-5 Urine Bacteria None Seen Hyaline Casts 0-2 Urine Opiates Screen Not Detected Urine Fentanyl Screen Not Detected Ur Barbiturates Screen Not Detected Ur Phencyclidine Scrn POSITIVE H Ur Amphetamines Screen Not Detected U Benzodiazepines Scrn Not Detected Urine Cocaine Screen Not Detected U Marijuana (THC) Screen POSITIVE H Ethyl Alcohol < 10 Blood Type Antibody Screen 12/07/22 14:49 MCV MCH MCHC RDW Plt Count MPV Immature Gran % (Auto) Neut % (Auto) Lymph % (Auto) [place] % (Auto) Eos % (Auto) Baso % (Auto) Lymph # (Auto) [place] # (Auto) Eos # (Auto) Baso # (Auto) Abs Immat Gran (auto) Absolute Neuts (auto) Absolute Nucleated RBC Nucleated RBC % (auto) Smear Tech's Comments Anion Gap Estim Creat Clear Calc Estimated GFR Random Glucose Lactic Acid Calcium Total Bilirubin Direct Bilirubin AST ALT Alkaline Phosphatase Total Protein Albumin Lipase Urine Color Urine Appearance Urine pH Ur Specific [place] Urine Protein Urine Glucose (UA) Urine Ketones Urine Blood Urine Nitrite Ur Leukocyte Esterase Urine RBC Urine WBC Ur Squamous Epith Cells Urine Bacteria Hyaline Casts Urine Opiates Screen Urine Fentanyl Screen Ur Barbiturates Screen Ur Phencyclidine Scrn Ur Amphetamines Screen U Benzodiazepines Scrn Urine Cocaine Screen U Marijuana (THC) Screen Ethyl Alcohol Blood Type A Positive Antibody Screen NEGATIVE Imaging Radiologist's Impressions: Impressions Abdomen/Pelvis CT 12/07/22 13:13 IMPRESSION: Acute perforated sigmoid diverticulitis. Focal collection of fluid and gas in the sigmoid mesocolon measures 6.9 x 4.0 x 3.3 cm. Possible paralytic ileus of the small bowel in the region of inflammation. Enlarging fluid collection adjacent to surgical clips in the gallbladder fossa measuring 3.0 x 2.5 2.6 cm. Possible biloma. Consider MRI/MRCP for further evaluation. Hepatic steatosis. Findings were reviewed and discussed with Dr. Gotti 2:21 PM on 12/07/2022. Assessment and Plan (1) Hypertensive cardiovascular disease or syndrome: Status: Acute (2) Perforated sigmoid colon: Status: Acute (3) Abdominal visceral abscess: Status: Acute Plan So he was seen both preoperatively and then of course again by me postoperatively doing very well keeping him intubated most especially for pain control overnight IV fluid orders which are somewhat aggressive have been written urine output is excellent Time Spent With Patient Time: Total time managing care of this patient today 60___ minutes.
--- NOTE | 2022-12-07 18:50 | W.PM.OPN ---
Operative Note Operative Note Date of Service: 12/07/22 Narrative: Preoperative diagnosis: [] Acute abdomen, perforated sigmoid diverticulitis Postop diagnosis: [] Same, acute suppurative peritonitis Procedure [] exploratory laparotomy, sigmoid resection, Felipe's pouch, and end colostomy Surgeon: [] Darin [employer] Underwriter: [] Chidi Type of Anesthesia: [] General Indication for surgery: [] Intraoperative findings demonstrated phlegmonous perforated sigmoid diverticulitis with free perforation with acute suppurative peritonitis involving the pelvis . Dense omental adhesions to the phlegmon. Very corpulent abdomen. Findings: [] Patient brought to the operating room, placed on operative table supine position, after adequate level of general anesthesia was induced, the patient's abdomen was prepped and draped in usual sterile fashion. Using a lower midline incision, this carried down through skin, subcutaneous tissue, and linea alba. Posterior fascia and peritoneum were opened and extended along the length of the incision. Packs and retractors were placed to enhance exposure. Findings were as noted above. Patient had phlegmonous perforated mid sigmoid diverticulitis with marked acute suppurative peritonitis involving the lower abdomen/pelvis. Moderate fecal contamination. Omentum was partially dissected off and partially amputated using ligature device from the the phlegmonous mass of the sigmoid colon and left pelvic sidewall, which contained pus and stool. The sigmoid colon was brought onto the field. Lateral peritoneal reflection was taken down using blunt dissection and Bovie and with adequately mobilized sigmoid colon, a DOROTA stapler was placed at the left colon/sigmoid colon junction, and bowel uneventfully transected here. Mesentery of specimen was then taken down using sequential double firing of ligature device down to the distal sigmoid colon. Transection of the distal sigmoid bowel was again accomplished using GI stapler. Specimen sent to pathology. Abdominal cavity was very copiously irrigated and secured hemostasis. Ostomy was performed in muscle-splitting incision in the left lower quadrant. Appropriately oriented , adequately mobilized left colon was brought out through the ostomy site with no tension and was pink and viable. Through a separate left lower quadrant stab wound incision, Salomon-Carlson drain was left in pelvic area in the region of the phlegmon/inflammatory cavity. This was secured the skin using 2-0 nylon. Abdominal cavity was again copiously irrigated and secured hemostasis. Wound was closed the following manner; mass closed using looped 1. PDS suture was used to close perineum and fascia. Skin was closed using widely spaced interrupted inverted dermal 3-0 Vicryl sutures with skin rl followed and sterile dressing. Incision was infiltrated 0.5% Marcaine at completion. Markedly edematous left colon was secured to the ostomy site using seromuscular to dermal interrupted circumferential 3-0 Vicryl sutures. Ostomy was then opened along the staple line using Bovie and was pink and viable. Ostomy appliance was placed. Sponge, needle, instrument counts reported correct. Patient tolerated the procedure well and was transferred directly to the ICU for continued restorative measures while intubated. EBL minimal, see anesthesia note
[2022-12-07] MEDS: propofoL 1,000 MG/100 ML VIAL 19.53 MG IVCONT (19:16)
[2022-12-07 19:38] LABS: VBG Base Excess -2.5 mmol/L; VBG HCO3 20 mmol/L (22-26); VBG pCO2 30 mmHg; VBG pH 7.43 (7.32-7.43); VBG pO2 70 mmHg
[2022-12-07 19:41] LABS: MANUAL DIFF FLAG NO
[2022-12-07 19:51] LABS: Basophils Percent Auto 0.2 % (0-2); Hematocrit 38.4 % (42.0-52.0); Hemoglobin 13.4 g/dl (14.0-18.0); Imm Gran Abs Auto 0.06 X10*3/uL (0.00-0.03); Imm Gran Pct Auto 0.4 % (0.0-0.4); Lymphocytes Absolute Auto 1.1 X10*3/uL (1.2-4.9); Lymphocytes Percent Auto 8.1 % (20-40); Mean Corpuscular HGB Conc 34.9 g/dl (31.0-36.0); Mean Corpuscular Volume 94.6 fL (80.0-98.0); Mean Platelet Volume 9.2 fL (9.4-12.4); Monocytes Absolute Auto 0.5 X10*3/uL (0.1-1.2); Monocytes Percent Auto 3.5 % (2-11); Neutrophils Absolute Auto 12.2 x10*3/uL (2.0-8.3); Neutrophils Percent Auto 87.8 % (45-73); Platelet Count 237 X10*3/uL (160-400); Red Blood Count 4.06 X10*6/uL (4.60-5.80); Red Cell Distribution Width 12.7 % (11.0-16.0); White Blood Count 13.9 X10*3/uL (4.8-10.8)
[2022-12-07 19:58] LABS: Alanine Aminotransferase 36 U/L (0-40); Albumin Level 3.3 g/dL (3.5-5.0); Alkaline Phosphatase 47 U/L (39-117); Anion Gap 14 (12-20); Aspartate Amino Transferase 43 U/L (5-37); Bilirubin Total 2.2 mg/dL (0.0-1.0); Blood Urea Nitrogen 11 mg/dL (9-16); Calcium 8.5 mg/dL (8.4-10.2); Carbon Dioxide 22 mmol/L (22-29); Chloride 106 mmol/L (96-108); Creatinine Clr Calc Pharmacy 101.3; Estimated Glomerular Filt Rate > 60; Glucose Random 149 mg/dL (60-115); Magnesium 1.9 mg/dL (1.6-2.6); Phosphorus 2.7 mg/dL (2.7-4.5); Potassium 3.8 mmol/L (3.3-5.1); Sodium 138 mmol/L (135-145); Total Protein 6.5 g/dL (6.5-8.0)
[2022-12-07] MEDS: Acetaminophen 1,000 MG/100 ML PIGGYBACK 400 MG IV (20:12)
[2022-12-07] MEDS: fentaNYL citrate/NS 1,000 MCG/100 ML PLAST..BAG 10 MCG IVCONT (20:21)
[2022-12-07] MEDS: Albumin Human 25 % 100 ML IV ×2 (20:32→21:42)
[2022-12-07] MEDS: propofoL 1,000 MG/100 ML VIAL 32.55 MG IVCONT (21:18)
--- NOTE | 2022-12-07 22:30 | HO.SKINPHOTO ---
Location: R buttocks Category: pressure Stage: II Length: Width: Depth: cm Location: L gluteal fold Category: pressure Stage: I Length: Width: Depth: cm
[2022-12-08] VITALS (28 sets, daily range): BP systolic 91–148; BP diastolic 56–92; PULSE 77–109; RESP 14–35; TEMP 36.4–36.8; O2SAT 90–97; BMI 37.2
[2022-12-08] MEDS: propofoL 1,000 MG/100 ML VIAL 26.04 MG IVCONT ×2 (00:31→04:02)
[2022-12-08] MEDS: Piperacillin Sodium/Tazobactam 3.375 GM in 0.9 % Sodium Chloride 50 ML IV ×4 (00:32→18:37)
[2022-12-08 00:45] LABS: Venous Blood Gas Refer to POC result
[2022-12-08] MEDS: Heparin Sodium,Porcine 5,000 UNIT/ML VIAL 5000 UNIT SUBCUT ×3 (00:58→16:46)
[2022-12-08] MEDS: Lactated Ringers 1,000 ML 150 ML IVCONT (03:34)
[2022-12-08] MEDS: fentaNYL citrate/NS 1,000 MCG/100 ML PLAST..BAG 10 MCG IVCONT (03:37)
[2022-12-08 05:13] LABS: VBG Base Excess -1.3 mmol/L; VBG HCO3 23 mmol/L (22-26); VBG pCO2 38 mmHg; VBG pH 7.38 (7.32-7.43); VBG pO2 64 mmHg
[2022-12-08 05:13] LABS: Venous Blood Gas Refer to POC result
[2022-12-08 05:19] LABS: MANUAL DIFF FLAG NO
[2022-12-08 05:24] LABS: Basophils Percent Auto 0.1 % (0-2); Hematocrit 35.7 % (42.0-52.0); Hemoglobin 12.2 g/dl (14.0-18.0); Imm Gran Abs Auto 0.03 X10*3/uL (0.00-0.03); Imm Gran Pct Auto 0.4 % (0.0-0.4); Lymphocytes Absolute Auto 0.6 X10*3/uL (1.2-4.9); Lymphocytes Percent Auto 6.7 % (20-40); Mean Corpuscular HGB Conc 34.2 g/dl (31.0-36.0); Mean Corpuscular Hemoglobin 33.1 pg (27.0-33.0); Mean Corpuscular Volume 96.7 fL (80.0-98.0); Mean Platelet Volume 9.4 fL (9.4-12.4); Monocytes Absolute Auto 0.4 X10*3/uL (0.1-1.2); Monocytes Percent Auto 4.6 % (2-11); Neutrophils Absolute Auto 7.4 x10*3/uL (2.0-8.3); Neutrophils Percent Auto 88.2 % (45-73); Platelet Count 178 X10*3/uL (160-400); Red Blood Count 3.69 X10*6/uL (4.60-5.80); Red Cell Distribution Width 12.8 % (11.0-16.0); White Blood Count 8.4 X10*3/uL (4.8-10.8)
[2022-12-08 05:30] LABS: INTERNATIONAL NORM RATIO 1.2 (0.9-1.1); Prothrombin Time 14.1 SEC (11.1-13.3)
[2022-12-08 05:42] LABS: Alanine Aminotransferase 45 U/L (0-40); Albumin Level 3.6 g/dL (3.5-5.0); Alkaline Phosphatase 43 U/L (39-117); Anion Gap 14 (12-20); Aspartate Amino Transferase 43 U/L (5-37); Bilirubin Total 2.2 mg/dL (0.0-1.0); Blood Urea Nitrogen 12 mg/dL (9-16); Calcium 9.3 mg/dL (8.4-10.2); Carbon Dioxide 23 mmol/L (22-29); Chloride 108 mmol/L (96-108); Creatinine Clr Calc Pharmacy 114.1; Estimated Glomerular Filt Rate > 60; Glucose Random 161 mg/dL (60-115); Magnesium 2.5 mg/dL (1.6-2.6); Phosphorus 2.8 mg/dL (2.7-4.5); Sodium 141 mmol/L (135-145); Total Protein 6.8 g/dL (6.5-8.0)
[2022-12-08] MEDS: HYDROmorphone HCl 1 MG/ML SYRINGE 0.5 MG IVPUSH ×3 (07:36→13:40)
[2022-12-08] MEDS: Chlorhexidine Gluc Oral Rinse 15 ML MOUTHWASH BUCCAL (08:35)
[2022-12-08] MEDS: Famotidine/PF 20 MG/2 ML VIAL IVPUSH (08:36)
[2022-12-08] MEDS: Lactated Ringers 1,000 ML 125 ML IVCONT ×2 (10:52→18:37)
--- NOTE | 2022-12-08 13:07 | P.PNCC_ITS ---
Subjective Subjective Date of Service: 12/08/22 Interval History: 57-year-old moderately obese male history of a HIV being treated on anti retroviral and hypertensive myocardial disease had a perforated sigmoid diverticulitis now has a diverting colostomy status post clean out procedure and doing very well easily extubated following a short pressure support trial this morning with excellent cognitive function waiting the surgical follow-up to determine whether not he is a candidate for clear liquids Critical Care Time (minutes): 35 Physical Exam 2 Vital Signs: Vital Signs: Last Vital Signs Temp 97.5 F 12/08/22 12:00 Pulse 107 H 12/08/22 12:00 Resp 35 H 12/08/22 12:00 BP 141/85 H 12/08/22 12:00 Pulse Ox 93 12/08/22 12:00 O2 Del Method Nasal Cannula 12/08/22 12:00 O2 Flow Rate 2 12/08/22 12:00 FiO2 30 12/08/22 08:00 BMI result Body Mass Index 37.2 Vital signs are excellent and has got good bilateral carotid upstrokes and no neck vein distension Cognitive function and neurologic intact Abdomen somewhat distended but certainly not as tender no palpable organomegaly Lungs clear bilaterally no adventitious sounds Cardiac exam by bedside echo within normal limits Objective Data Labs 12/08/22 04:59 12/08/22 04:59 Labs: Laboratory Results - last 24 hr 12/07/22 12/07/22 12/07/22 09:52 12:56 14:49 WBC RBC Hgb Hct MCV MCH MCHC RDW Plt Count MPV Immature Gran % (Auto) Neut % (Auto) Lymph % (Auto) [place] % (Auto) Eos % (Auto) Baso % (Auto) Lymph # (Auto) [place] # (Auto) Eos # (Auto) Baso # (Auto) Abs Immat Gran (auto) Absolute Neuts (auto) Absolute Nucleated RBC Nucleated RBC % (auto) PT INR VBG pH VBG pCO2 VBG pO2 VBG HCO3 VBG O2 Saturation VBG Base Excess Sodium Potassium Chloride Carbon Dioxide Anion Gap BUN Creatinine Estim Creat Clear Calc Estimated GFR Random Glucose Lactic Acid 1.7 Calcium Phosphorus Magnesium Total Bilirubin AST ALT Alkaline Phosphatase Total Protein Albumin Urine Opiates Screen Not Detected Urine Fentanyl Screen Not Detected Ur Barbiturates Screen Not Detected Ur Phencyclidine Scrn POSITIVE H Ur Amphetamines Screen Not Detected U Benzodiazepines Scrn Not Detected Urine Cocaine Screen Not Detected U Marijuana (THC) Screen POSITIVE H Ethyl Alcohol < 10 Blood Type A Positive Antibody Screen NEGATIVE 12/07/22 12/07/22 12/08/22 19:32 19:34 04:59 WBC 13.9 H 8.4 RBC 4.06 L 3.69 L Hgb 13.4 L 12.2 L Hct 38.4 L 35.7 L MCV 94.6 96.7 MCH 33.0 33.1 H MCHC 34.9 34.2 RDW 12.7 12.8 Plt Count 237 178 MPV 9.2 L 9.4 Immature Gran % (Auto) 0.4 0.4 Neut % (Auto) 87.8 H 88.2 H Lymph % (Auto) 8.1 L 6.7 L [place] % (Auto) 3.5 4.6 Eos % (Auto) 0.0 0.0 Baso % (Auto) 0.2 0.1 Lymph # (Auto) 1.1 L 0.6 L [place] # (Auto) 0.5 0.4 Eos # (Auto) 0.0 0.0 Baso # (Auto) 0.0 0.0 Abs Immat Gran (auto) 0.06 H 0.03 Absolute Neuts (auto) 12.2 H 7.4 Absolute Nucleated RBC 0.000 0.000 Nucleated RBC % (auto) 0.0 0.0 PT 14.1 H INR 1.2 H VBG pH 7.43 VBG pCO2 30 VBG pO2 70 VBG HCO3 20 L VBG O2 Saturation 93.0 VBG Base Excess -2.5 Sodium 138 141 Potassium 3.8 4.0 Chloride 106 108 Carbon Dioxide 22 23 Anion Gap 14 14 BUN 11 12 Creatinine 0.98 0.87 Estim Creat Clear Calc 101.3 114.1 Estimated GFR > 60 > 60 Random Glucose 149 H 161 H Lactic Acid Calcium 8.5 D 9.3 D Phosphorus 2.7 2.8 Magnesium 1.9 2.5 Total Bilirubin 2.2 H 2.2 H AST 43 H 43 H ALT 36 45 H Alkaline Phosphatase 47 43 Total Protein 6.5 6.8 Albumin 3.3 L 3.6 Urine Opiates Screen Urine Fentanyl Screen Ur Barbiturates Screen Ur Phencyclidine Scrn Ur Amphetamines Screen U Benzodiazepines Scrn Urine Cocaine Screen U Marijuana (THC) Screen Ethyl Alcohol Blood Type Antibody Screen 12/08/22 05:08 WBC RBC Hgb Hct MCV MCH MCHC RDW Plt Count MPV Immature Gran % (Auto) Neut % (Auto) Lymph % (Auto) [place] % (Auto) Eos % (Auto) Baso % (Auto) Lymph # (Auto) [place] # (Auto) Eos # (Auto) Baso # (Auto) Abs Immat Gran (auto) Absolute Neuts (auto) Absolute Nucleated RBC Nucleated RBC % (auto) PT INR VBG pH 7.38 VBG pCO2 38 VBG pO2 64 VBG HCO3 23 VBG O2 Saturation 90.0 VBG Base Excess -1.3 Sodium Potassium Chloride Carbon Dioxide Anion Gap BUN Creatinine Estim Creat Clear Calc Estimated GFR Random Glucose Lactic Acid Calcium Phosphorus Magnesium Total Bilirubin AST ALT Alkaline Phosphatase Total Protein Albumin Urine Opiates Screen Urine Fentanyl Screen Ur Barbiturates Screen Ur Phencyclidine Scrn Ur Amphetamines Screen U Benzodiazepines Scrn Urine Cocaine Screen U Marijuana (THC) Screen Ethyl Alcohol Blood Type Antibody Screen Progress Note: A&P Assessment and plan (1) Hypertensive cardiovascular disease or syndrome: Status: Acute (2) Abdominal visceral abscess: Status: Acute (3) Perforated sigmoid colon: Status: Acute (4) Diverticulitis large intestine: Status: Acute Plan Doing beautifully now extubated very comfortable no hemodynamic signs of active sepsis Quality Stroke Does the patient have a stroke diagnosis?: No VTE Prior VTE?: No VTE Risk Level:: Surgical - low VTE Device Contraindication: N/A - Device Ordered VTE Drug Contraindication: Treatment Not Indicated
--- NOTE | 2022-12-08 13:54 | P.PNGS_ITS ---
Subjective Subjective Date of Service: 12/08/22 Interval history: Patient had an uneventful evening. Was extubated this morning. Has incisional discomfort but otherwise overall feels better. Physical Exam 2 Vital Signs: Vital Signs: Last Vital Signs Temp 97.5 F 12/08/22 12:00 Pulse 100 12/08/22 13:00 Resp 16 12/08/22 13:00 BP 148/92 H 12/08/22 13:00 Pulse Ox 93 12/08/22 13:00 O2 Del Method Nasal Cannula 12/08/22 13:00 O2 Flow Rate 2 12/08/22 13:00 FiO2 30 12/08/22 08:00 BMI result Body Mass Index 37.2 GI: Other: Abdomen mildly distended, incision clean dry and intact and rl in place. Ostomy pink. Objective Data Active Medications Famotidine (Famotidine/Pf 20 Mg/2 Ml Vial) 20 mg IVPUSH DAILY [facility] Last Admin: 12/08/22 08:36 Dose: 20 mg Documented By: SONIA Heparin Sodium (Porcine) (Heparin Sodium,Porcine 5,000 Unit/Ml Vial) 5,000 unit SUBCUT Q8H [facility] Last Admin: 12/08/22 08:36 Dose: 5,000 unit Documented By: SONIA Hydromorphone HCl (Hydromorphone Hcl 1 Mg/Ml Syringe) 0.5 mg IVPUSH Q3H PRN; Protocol PRN Reason: Pain, Severe (Pain Scale 7-10) Last Admin: 12/08/22 13:40 Dose: 0.5 mg Documented By: SONIA Lactated Ringer's (Lr) 1,000 mls @ 125 mls/hr IVCONT .Q8H [facility] Last Admin: 12/08/22 10:52 Dose: 125 mls/hr Documented By: SONIA Piperacillin Sod/Tazobactam (Sod 3.375 gm/ Sodium Chloride) 50 mls @ 100 mls/hr IV Q6H [facility] Last Infusion: 12/08/22 12:49 Dose: Infused Documented By: SONIA Acetaminophen (Ofirmev) 1,000 mg in 100 mls @ 400 mls/hr IV Q6H PRN PRN Reason: Fever >101 Sodium Chloride (0.9 % Sodium Chloride Flush 3 Ml Syringe) 3 ml IVFLUSH QSHIFT PRN PRN Reason: fever Labs 12/08/22 04:59 12/08/22 04:59 Labs: Laboratory Results - last 24 hr 12/07/22 12/07/22 12/07/22 14:49 19:32 19:34 MCV 94.6 MCH 33.0 MCHC 34.9 RDW 12.7 Plt Count 237 MPV 9.2 L Immature Gran % (Auto) 0.4 Neut % (Auto) 87.8 H Lymph % (Auto) 8.1 L [place] % (Auto) 3.5 Eos % (Auto) 0.0 Baso % (Auto) 0.2 Lymph # (Auto) 1.1 L [place] # (Auto) 0.5 Eos # (Auto) 0.0 Baso # (Auto) 0.0 Abs Immat Gran (auto) 0.06 H Absolute Neuts (auto) 12.2 H Absolute Nucleated RBC 0.000 Nucleated RBC % (auto) 0.0 PT INR VBG pH 7.43 VBG pCO2 30 VBG pO2 70 VBG HCO3 20 L VBG O2 Saturation 93.0 VBG Base Excess -2.5 Anion Gap 14 Estim Creat Clear Calc 101.3 Estimated GFR > 60 Random Glucose 149 H Calcium 8.5 D Phosphorus 2.7 Magnesium 1.9 Total Bilirubin 2.2 H AST 43 H ALT 36 Alkaline Phosphatase 47 Total Protein 6.5 Albumin 3.3 L Blood Type A Positive Antibody Screen NEGATIVE 12/08/22 12/08/22 04:59 05:08 MCV 96.7 MCH 33.1 H MCHC 34.2 RDW 12.8 Plt Count 178 MPV 9.4 Immature Gran % (Auto) 0.4 Neut % (Auto) 88.2 H Lymph % (Auto) 6.7 L [place] % (Auto) 4.6 Eos % (Auto) 0.0 Baso % (Auto) 0.1 Lymph # (Auto) 0.6 L [place] # (Auto) 0.4 Eos # (Auto) 0.0 Baso # (Auto) 0.0 Abs Immat Gran (auto) 0.03 Absolute Neuts (auto) 7.4 Absolute Nucleated RBC 0.000 Nucleated RBC % (auto) 0.0 PT 14.1 H INR 1.2 H VBG pH 7.38 VBG pCO2 38 VBG pO2 64 VBG HCO3 23 VBG O2 Saturation 90.0 VBG Base Excess -1.3 Anion Gap 14 Estim Creat Clear Calc 114.1 Estimated GFR > 60 Random Glucose 161 H Calcium 9.3 D Phosphorus 2.8 Magnesium 2.5 Total Bilirubin 2.2 H AST 43 H ALT 45 H Alkaline Phosphatase 43 Total Protein 6.8 Albumin 3.6 Blood Type Antibody Screen Procedures Date of Service Date of Service: 12/08/22 Progress Note: A&P Assessment and plan (1) Perforated sigmoid colon: Status: Acute Plan Postop day 1 status post perforated sigmoid diverticulitis. Continue current plan. Incentive spirometry, out of bed, ice pack to incision, clear liquids. Possible transfer to floor , per ICU MD Time Spent With Patient Time: Total time managing care of this patient today ____ minutes. Quality Stroke Does the patient have a stroke diagnosis?: No VTE Prior VTE?: No VTE Risk Level:: Surgical - low VTE Device Contraindication: N/A - Device Ordered VTE Drug Contraindication: Treatment Not Indicated
--- NOTE | 2022-12-08 14:26 | MHC.CM.PN ---
IMM 12/08/22 DX Abdominal pain. r/t diverticulitis. S/P surgery w colostomy He lives in an apartment by himself. His Mother lives in the same complex close by. He is independent with all functional mobility. He declined the offer to document a HCP. He understands that we can document the HCP here, anytime. DP Home with [facility] for Ostomy education and assessment. He wants to wait until closer to discharge to [facility]. His Mother will provide transportation home.
[2022-12-08] MEDS: HYDROmorphone HCl 1 MG/ML SYRINGE IVPUSH ×3 (16:45→23:03)
--- NOTE | 2022-12-08 20:26 | HO.POSTANES ---
Post Anesthesia Evaluation Post Anesthesia Evaluation Date of Service: 12/08/22 Vital Signs: Vital Signs Temp Pulse Resp BP Pulse Ox O2 Del Method O2 Flow Rate 12/08/22 20:00 92 21 H 123/80 90 L Room Air 12/08/22 19:42 19 12/08/22 19:00 99 21 H 132/79 93 Room Air 12/08/22 18:00 81 20 129/81 93 Room Air 12/08/22 17:00 98 26 H 130/82 90 L Room Air 12/08/22 16:00 83 22 H 131/87 94 Room Air 12/08/22 15:00 98 23 H 134/81 92 Room Air 12/08/22 14:00 102 H 26 H 146/83 H 92 Room Air 12/08/22 13:00 100 16 148/92 H 93 Nasal Cannula 2 12/08/22 12:00 97.5 F 107 H 35 H 141/85 H 93 Nasal Cannula 2 12/08/22 11:00 108 H 25 H 136/86 91 L Nasal Cannula 2 12/08/22 10:00 108 H 31 H 133/84 91 L Nasal Cannula 2 12/08/22 09:00 106 H 25 H 124/84 91 L Nasal Cannula 2 Anesthesia: General Endotracheal-GETA Mental Status: Awake Pain Control: Satisfactory Nausea/Vomiting: None Hydration: Adequate Anesthesia-Related Issues: No Anes. Related Issues
[2022-12-09] VITALS (19 sets, daily range): BP systolic 111–143; BP diastolic 68–91; PULSE 76–97; RESP 15–22; TEMP 36.2–37.2; O2SAT 90–97; BMI 37.0
[2022-12-09] MEDS: Heparin Sodium,Porcine 5,000 UNIT/ML VIAL 5000 UNIT SUBCUT ×3 (00:46→18:01)
[2022-12-09] MEDS: Piperacillin Sodium/Tazobactam 3.375 GM in 0.9 % Sodium Chloride 50 ML IV ×4 (00:46→18:01)
[2022-12-09] MEDS: HYDROmorphone HCl 1 MG/ML SYRINGE IVPUSH ×7 (02:01→21:48)
[2022-12-09] MEDS: Lactated Ringers 1,000 ML 125 ML IVCONT (02:04)
[2022-12-09 05:22] LABS: VBG Base Excess 3.2 mmol/L; VBG HCO3 28 mmol/L (22-26); VBG pCO2 42 mmHg; VBG pH 7.42 (7.32-7.43); VBG pO2 29 mmHg
[2022-12-09 05:24] LABS: MANUAL DIFF FLAG NO
[2022-12-09 05:25] LABS: Basophils Percent Auto 0.1 % (0-2); Eosinophils Percent Auto 0.1 % (0-4); Hematocrit 36.8 % (42.0-52.0); Hemoglobin 12.6 g/dl (14.0-18.0); Imm Gran Abs Auto 0.03 X10*3/uL (0.00-0.03); Imm Gran Pct Auto 0.4 % (0.0-0.4); Lymphocytes Absolute Auto 1.1 X10*3/uL (1.2-4.9); Lymphocytes Percent Auto 14.8 % (20-40); Mean Corpuscular HGB Conc 34.2 g/dl (31.0-36.0); Mean Corpuscular Hemoglobin 33.5 pg (27.0-33.0); Mean Corpuscular Volume 97.9 fL (80.0-98.0); Mean Platelet Volume 9.4 fL (9.4-12.4); Monocytes Absolute Auto 0.5 X10*3/uL (0.1-1.2); Monocytes Percent Auto 6.1 % (2-11); Neutrophils Percent Auto 78.5 % (45-73); Platelet Count 180 X10*3/uL (160-400); Red Blood Count 3.76 X10*6/uL (4.60-5.80); Red Cell Distribution Width 12.8 % (11.0-16.0); White Blood Count 7.7 X10*3/uL (4.8-10.8)
[2022-12-09 05:31] LABS: Prothrombin Time 12.2 SEC (11.1-13.3)
[2022-12-09 05:34] LABS: Partial Thromboplastin Time 26.5 SEC (26.0-36.4)
--- NOTE | 2022-12-09 05:37 | PM.CCPN ---
Subjective Subjective Date of Service: 12/09/22 Interval History: 57-year-old male hypertensive background history of HIV treated with anti retrovirals with excellent CBC Has diverticulitis with perforated sigmoid now has a diverting colostomy on prophylactic antibiotics and doing beautifully Tolerated clear liquid diet yesterday metabolically normal and at this point a plan to mobilize him needs to get out of bed advance his diet Critical Care Time (minutes): 30 Physical Exam Vital Signs: Vital Signs: Last Vital Signs Temp 98.2 F 12/09/22 03:00 Pulse 79 12/09/22 05:00 Resp 17 12/09/22 05:00 BP 120/78 12/09/22 05:00 Pulse Ox 92 12/09/22 05:00 O2 Del Method Room Air 12/09/22 05:00 O2 Flow Rate 2 12/08/22 13:00 FiO2 30 12/08/22 08:00 BMI result Body Mass Index 37.2 Excellent vital signs blood pressure 106/67 with a mean of 80 so were not ready to restore his home antihypertensives just yet Abdomen is soft nontender Lungs are clear no adventitious sounds Bedside echo demonstrating mild concentric left ventricular hypertrophy but globally normal systolic wall motion Objective Data Labs 12/09/22 05:15 12/09/22 05:15 Labs: Laboratory Results - last 24 hr 12/08/22 12/09/22 12/09/22 04:59 05:15 05:16 WBC 7.7 RBC 3.76 L Hgb 12.6 L Hct 36.8 L MCV 97.9 MCH 33.5 H MCHC 34.2 RDW 12.8 Plt Count 180 MPV 9.4 Immature Gran % (Auto) 0.4 Neut % (Auto) 78.5 H Lymph % (Auto) 14.8 L [place] % (Auto) 6.1 Eos % (Auto) 0.1 Baso % (Auto) 0.1 Lymph # (Auto) 1.1 L [place] # (Auto) 0.5 Eos # (Auto) 0.0 Baso # (Auto) 0.0 Abs Immat Gran (auto) 0.03 Absolute Neuts (auto) 6.0 Absolute Nucleated RBC 0.000 Nucleated RBC % (auto) 0.0 PT 12.2 INR 1.0 APTT 26.5 VBG pH 7.42 VBG pCO2 42 VBG pO2 29 VBG HCO3 28 H VBG O2 Saturation 40.0 VBG Base Excess 3.2 Sodium 141 Potassium 4.0 Chloride 108 Carbon Dioxide 23 Anion Gap 14 BUN 12 Creatinine 0.87 Estim Creat Clear Calc 114.1 Estimated GFR > 60 Random Glucose 161 H Calcium 9.3 D Phosphorus 2.8 Magnesium 2.5 Total Bilirubin 2.2 H AST 43 H ALT 45 H Alkaline Phosphatase 43 Total Protein 6.8 Albumin 3.6 Microbiology Microbiology Results: Microbiology 12/07/22 12:56 Blood - Venous Blood Culture - Preliminary No growth after 24 hours. 12/07/22 12:48 Blood - Venous Blood Culture - Preliminary No growth after 24 hours. Progress Note: A&P Assessment and plan (1) Diverticulitis large intestine: Status: Acute (2) Hypertensive cardiovascular disease or syndrome: Status: Acute (3) Abdominal visceral abscess: Status: Acute (4) Perforated sigmoid colon: Status: Acute Plan Plan at this point is to mobilize him and advance his diet Quality Stroke Does the patient have a stroke diagnosis?: No VTE Prior VTE?: No VTE Risk Level:: Surgical - low VTE Device Contraindication: N/A - Device Ordered VTE Drug Contraindication: Treatment Not Indicated
[2022-12-09 05:39] LABS: Venous Blood Gas Refer to POC result
[2022-12-09 05:47] LABS: Alanine Aminotransferase 80 U/L (0-40); Albumin Level 3.5 g/dL (3.5-5.0); Alkaline Phosphatase 56 U/L (39-117); Anion Gap 10 (12-20); Aspartate Amino Transferase 107 U/L (5-37); Blood Urea Nitrogen 20 mg/dL (9-16); Calcium 8.7 mg/dL (8.4-10.2); Carbon Dioxide 25 mmol/L (22-29); Chloride 108 mmol/L (96-108); Creatinine Clr Calc Pharmacy 120.2; Estimated Glomerular Filt Rate > 60; Glucose Random 125 mg/dL (60-115); Magnesium 2.4 mg/dL (1.6-2.6); Phosphorus 3.3 mg/dL (2.7-4.5); Potassium 4.1 mmol/L (3.3-5.1); Sodium 139 mmol/L (135-145); Total Protein 6.6 g/dL (6.5-8.0)
[2022-12-09] MEDS: Famotidine/PF 20 MG/2 ML VIAL IVPUSH (08:37)
[2022-12-09] MEDS: Lactated Ringers 1,000 ML 80 ML IVCONT (11:40)
--- NOTE | 2022-12-09 14:12 | PM.PNGS ---
Subjective Subjective Date of Service: 12/09/22 Interval history: Patient is very clinically stable. Doing well. He is tolerating a full liquid diet. He is having ostomy output. He has minimal incisional discomfort. He is doing his incentive spirometry. WBC normalized. H&H stable Physical Exam Vital Signs: Vital Signs: Last Vital Signs Temp 98.9 F 12/09/22 11:00 Pulse 82 12/09/22 13:00 Resp 17 12/09/22 13:00 BP 135/85 12/09/22 13:00 Pulse Ox 92 12/09/22 13:00 O2 Del Method Room Air 12/09/22 13:00 O2 Flow Rate 2 12/08/22 13:00 FiO2 30 12/08/22 08:00 BMI result Body Mass Index 37.0 GI: Other: Ostomy pink, functioning. Incision clean dry and intact. Skin rl removed. RODNEY drain serous sanguinous output. Objective Data Active Medications Famotidine (Famotidine/Pf 20 Mg/2 Ml Vial) 20 mg IVPUSH DAILY [facility] Last Admin: 12/09/22 08:37 Dose: 20 mg Documented By: SONIA Heparin Sodium (Porcine) (Heparin Sodium,Porcine 5,000 Unit/Ml Vial) 5,000 unit SUBCUT Q8H [facility] Last Admin: 12/09/22 08:37 Dose: 5,000 unit Documented By: SONIA Hydromorphone HCl (Hydromorphone Hcl 1 Mg/Ml Syringe) 1 mg IVPUSH Q3H PRN; Protocol PRN Reason: Pain, Severe (Pain Scale 7-10) Last Admin: 12/09/22 11:41 Dose: 1 mg Documented By: SONIA Lactated Ringer's (Lr) 1,000 mls @ 80 mls/hr IVCONT .[id number] [facility] Last Admin: 12/09/22 11:40 Dose: 80 mls/hr Documented By: SONIA Piperacillin Sod/Tazobactam (Sod 3.375 gm/ Sodium Chloride) 50 mls @ 100 mls/hr IV Q6H [facility] Last Admin: 12/09/22 13:59 Dose: 100 mls/hr Documented By: SONIA Acetaminophen (Ofirmev) 1,000 mg in 100 mls @ 400 mls/hr IV Q6H PRN PRN Reason: Fever >101 Sodium Chloride (0.9 % Sodium Chloride Flush 3 Ml Syringe) 3 ml IVFLUSH QSHIFT PRN PRN Reason: fever Labs 12/09/22 05:15 12/09/22 05:15 Labs: Laboratory Results - last 24 hr 12/09/22 12/09/22 05:15 05:16 MCV 97.9 MCH 33.5 H MCHC 34.2 RDW 12.8 Plt Count 180 MPV 9.4 Immature Gran % (Auto) 0.4 Neut % (Auto) 78.5 H Lymph % (Auto) 14.8 L [place] % (Auto) 6.1 Eos % (Auto) 0.1 Baso % (Auto) 0.1 Lymph # (Auto) 1.1 L [place] # (Auto) 0.5 Eos # (Auto) 0.0 Baso # (Auto) 0.0 Abs Immat Gran (auto) 0.03 Absolute Neuts (auto) 6.0 Absolute Nucleated RBC 0.000 Nucleated RBC % (auto) 0.0 PT 12.2 INR 1.0 APTT 26.5 VBG pH 7.42 VBG pCO2 42 VBG pO2 29 VBG HCO3 28 H VBG O2 Saturation 40.0 VBG Base Excess 3.2 Anion Gap 10 L Estim Creat Clear Calc 120.2 Estimated GFR > 60 Random Glucose 125 H Calcium 8.7 D Phosphorus 3.3 Magnesium 2.4 Total Bilirubin 1.0 AST 107 H ALT 80 H Alkaline Phosphatase 56 Total Protein 6.6 Albumin 3.5 Microbiology Microbiology Results: Microbiology 12/07/22 12:56 Blood Culture - Preliminary Blood - Venous No growth after 24 hours. 12/07/22 12:48 Blood Culture - Preliminary Blood - Venous No growth after 24 hours. Procedures Date of Service Date of Service: 12/09/22 Progress Note: A&P Assessment and plan (1) Perforated sigmoid colon: Status: Acute (2) Diverticulitis large intestine: Status: Acute Plan CHRIS Blue, encourage incentive spirometry, transfer to floor, out of bed with assistance Time Spent With Patient Time: Total time managing care of this patient today ____ minutes. Quality Stroke Does the patient have a stroke diagnosis?: No VTE Prior VTE?: No VTE Risk Level:: Surgical - low VTE Device Contraindication: N/A - Device Ordered VTE Drug Contraindication: Treatment Not Indicated
--- NOTE | 2022-12-09 16:57 | PC.NURSE ---
Patient up to C on floor at this time.
[2022-12-09] MEDS: LORazepam 0.5 MG TABLET PO ×2 (18:01→20:40)
[2022-12-09] MEDS: 0.9 % Sodium Chloride Flush 3 ML SYRINGE IVFLUSH (20:40)
[2022-12-09] MEDS: Bictegrav/Emtricit/Tenofov Ala TABLET 1 TAB PO (20:54)
--- NOTE | 2022-12-09 20:55 | PC.NURSE ---
Called Pharmacy because Biktarvy meds not scanning.
[2022-12-09] MEDS: Acetaminophen 1,000 MG/100 ML PIGGYBACK 400 MG IV (22:38)
[2022-12-10] VITALS (7 sets, daily range): BP systolic 120–159; BP diastolic 82–88; PULSE 78–110; RESP 18–20; TEMP 36.3–38.6; O2SAT 95–99
[2022-12-10] MEDS: Piperacillin Sodium/Tazobactam 3.375 GM in 0.9 % Sodium Chloride 50 ML IV ×4 (01:00→18:23)
[2022-12-10] MEDS: Heparin Sodium,Porcine 5,000 UNIT/ML VIAL 5000 UNIT SUBCUT ×3 (01:00→16:15)
[2022-12-10] MEDS: HYDROmorphone HCl 1 MG/ML SYRINGE IVPUSH ×5 (01:04→21:18)
[2022-12-10] MEDS: Acetaminophen 1,000 MG/100 ML PIGGYBACK 400 MG IV ×2 (05:27→21:21)
--- NOTE | 2022-12-10 07:47 | P.PNGS_ITS ---
Subjective Subjective Date of Service: 12/10/22 Interval history: Reports incisional discomfort but comfortable with analgesics. Tolerating clears. Has not been OOB. Passing flatus and stool via ostomy. Physical Exam 2 Vital Signs: Vital Signs: Last Vital Signs Temp 98.3 F 12/09/22 23:44 Pulse 78 12/10/22 02:53 Resp 20 12/10/22 02:53 BP 129/75 12/09/22 23:44 Pulse Ox 95 12/09/22 23:44 O2 Del Method Room Air 12/09/22 23:44 O2 Flow Rate 2 12/08/22 13:00 FiO2 30 12/08/22 08:00 BMI result Body Mass Index 37.0 Const: General: comfortable, no acute distress and alert O rientation/consciousness: patient oriented x3 Resp: Effort & Inspection: normal respiratory effort GI: Other: RODNEY drain serosanguineous ostomy viable appearing, liquid stool Inspection: Yes incision (clean) Palpation (GI): Soft to palpation, Tenderness to palpation present (GI) (mild incisional tenderness), no guarding and not rigid Skin: General skin exam: no rashes or lesions noted Neuro: General: patient oriented x3 and moves all extremities Objective Data Active Medications Bictegravir/Emtricitabine/Tenofovir (Bictegrav/Emtricit/Tenofov Ala Tablet) 1 tab PO BEDTIME [facility] Last Admin: 12/09/22 20:54 Dose: 1 tab Documented By: MAGGIE Famotidine (Famotidine/Pf 20 Mg/2 Ml Vial) 20 mg IVPUSH DAILY [facility] Last Admin: 12/09/22 08:37 Dose: 20 mg Documented By: SONIA Heparin Sodium (Porcine) (Heparin Sodium,Porcine 5,000 Unit/Ml Vial) 5,000 unit SUBCUT Q8H [facility] Last Admin: 12/10/22 01:00 Dose: 5,000 unit Documented By: MAGGIE Hydromorphone HCl (Hydromorphone Hcl 1 Mg/Ml Syringe) 1 mg IVPUSH Q3H PRN; Protocol PRN Reason: Pain, Severe (Pain Scale 7-10) Last Admin: 12/10/22 05:46 Dose: 1 mg Documented By: MAGGIE Piperacillin Sod/Tazobactam (Sod 3.375 gm/ Sodium Chloride) 50 mls @ 100 mls/hr IV Q6H [facility] Last Infusion: 12/10/22 01:34 Dose: Infused Documented By: MAGGIE Acetaminophen (Ofirmev) 1,000 mg in 100 mls @ 400 mls/hr IV Q6H PRN PRN Reason: Fever >101 Last Infusion: 12/10/22 05:48 Dose: Infused Documented By: MAGGIE Lorazepam (Lorazepam 0.5 Mg Tablet) 0.5 mg PO BID [facility] Last Admin: 12/09/22 20:40 Dose: 0.5 mg Documented By: MAGGIE Sodium Chloride (0.9 % Sodium Chloride Flush 3 Ml Syringe) 3 ml IVFLUSH QSHIFT PRN PRN Reason: fever Last Admin: 12/09/22 20:40 Dose: 3 ml Documented By: MAGGIE Labs 12/09/22 05:15 12/09/22 05:15 Microbiology Microbiology Results: Microbiology 12/07/22 12:56 Blood Culture - Preliminary Blood - Venous No growth after 48 hours. 12/07/22 12:48 Blood Culture - Preliminary Blood - Venous No growth after 48 hours. Procedures Date of Service Date of Service: 12/10/22 Progress Note: A&P Assessment and plan (1) Perforated sigmoid colon: Status: Acute (2) Status post Cisco procedure: Status: Acute Plan 57 year old male admitted with perforated sigmoid diverticulitis now POD #3 s/p cisco procedure . Doing fairly well post op, with good ostomy function. VSS. Abd exam benign, incision clean, ostomy viable appearing. Will advance to solid diet. Encouraged OOB/ambulation- has not been OOB yet. PT consult. Time Spent With Patient Time: Total time managing care of this patient today ____ minutes. Quality Stroke Does the patient have a stroke diagnosis?: No VTE Prior VTE?: No VTE Risk Level:: Surgical - low VTE Device Contraindication: N/A - Device Ordered VTE Drug Contraindication: Treatment Not Indicated
[2022-12-10] MEDS: LORazepam 0.5 MG TABLET PO ×2 (08:14→21:27)
[2022-12-10] MEDS: Famotidine/PF 20 MG/2 ML VIAL IVPUSH (08:14)
--- NOTE | 2022-12-10 16:00 | MHC.CLN ---
PT WITH STAGE 1 & 2 PRESSURE INJURY RECOMMEND ADDING ENSURE MAX BID TO PROMOTE WOUND HEALING SUPP TO PROVIDE 300KCALS, 60G PROTEIN FULL CLINICAL ASSESSMENT TO FOLLOW
[2022-12-10] MEDS: Bictegrav/Emtricit/Tenofov Ala TABLET 1 TAB PO (21:27)
[2022-12-10] MEDS: Montelukast Sodium 10 MG TABLET PO (21:27)
[2022-12-10] MEDS: 0.9 % Sodium Chloride Flush 3 ML SYRINGE IVFLUSH (21:28)
[2022-12-11] MEDS: HYDROmorphone HCl 1 MG/ML SYRINGE IVPUSH ×3 (00:28→08:28)
[2022-12-11] MEDS: Piperacillin Sodium/Tazobactam 3.375 GM in 0.9 % Sodium Chloride 50 ML IV ×4 (00:31→18:06)
[2022-12-11] MEDS: Heparin Sodium,Porcine 5,000 UNIT/ML VIAL 5000 UNIT SUBCUT ×3 (00:33→17:23)
[2022-12-11 03:24] VITALS: BP 135/84; PULSE 83; RESP 18; TEMP 36.2; O2SAT 97
[2022-12-11 06:00] VITALS: BMI 36.9
[2022-12-11 07:52] VITALS: BP 136/81; PULSE 94; RESP 20; TEMP 36.9; O2SAT 96
[2022-12-11] MEDS: Famotidine/PF 20 MG/2 ML VIAL IVPUSH (08:27)
[2022-12-11] MEDS: LORazepam 0.5 MG TABLET PO ×2 (08:27→19:49)
--- NOTE | 2022-12-11 08:30 | P.PNGS_ITS ---
Subjective Subjective Date of Service: 12/11/22 Interval history: Reports increasing incisional discomfort after getting out of bed yesterday and ambulating. Tolerating solid diet without nausea or vomiting. Physical Exam 2 Vital Signs: Vital Signs: Last Vital Signs Temp 98.5 F 12/11/22 07:52 Pulse 94 12/11/22 07:52 Resp 20 12/11/22 07:52 BP 136/81 12/11/22 07:52 Pulse Ox 96 12/11/22 07:52 O2 Del Method Room Air 12/11/22 07:52 O2 Flow Rate 2 12/08/22 13:00 FiO2 30 12/08/22 08:00 BMI result Body Mass Index 36.9 Const: General: comfortable, no acute distress and alert O rientation/consciousness: patient oriented x3 Resp: Effort & Inspection: normal respiratory effort GI: Other: RODNEY drain with scant serosanguineous output ostomy viable appearing, liquid stool in appliance Inspection: Yes incision (very pale erythema surrounding incision, no significant drainage noted) Palpation (GI): Soft to palpation, Tenderness to palpation present (GI) (incisional), no guarding and not rigid Percussion: Y es tympanic to percussion Skin: General skin exam: no rashes or lesions noted Neuro: General: patient oriented x3 and moves all extremities Objective Data Active Medications Albuterol Sulfate (Albuterol Sulfate 90 Mcg 8 Gm Inhaler) 2 puff INHALE RQ4H PRN PRN Reason: SOB / wheezing Bictegravir/Emtricitabine/Tenofovir (Bictegrav/Emtricit/Tenofov Ala Tablet) 1 tab PO BEDTIME [facility] Last Admin: 12/10/22 21:27 Dose: 1 tab Documented By: LITZY Famotidine (Famotidine/Pf 20 Mg/2 Ml Vial) 20 mg IVPUSH DAILY [facility] Last Admin: 12/10/22 08:14 Dose: 20 mg Documented By: KIRBY Heparin Sodium (Porcine) (Heparin Sodium,Porcine 5,000 Unit/Ml Vial) 5,000 unit SUBCUT Q8H [facility] Last Admin: 12/11/22 00:33 Dose: 5,000 unit Documented By: LITZY Hydromorphone HCl (Hydromorphone Hcl 1 Mg/Ml Syringe) 1 mg IVPUSH Q3H PRN; Protocol PRN Reason: Pain, Severe (Pain Scale 7-10) Last Admin: 12/11/22 04:17 Dose: 1 mg Documented By: LITZY Piperacillin Sod/Tazobactam (Sod 3.375 gm/ Sodium Chloride) 50 mls @ 100 mls/hr IV Q6H [facility] Last Infusion: 12/11/22 07:32 Dose: Infused Documented By: KIRBY Lorazepam (Lorazepam 0.5 Mg Tablet) 0.5 mg PO BID [facility] Last Admin: 12/10/22 21:27 Dose: 0.5 mg Documented By: LITZY Montelukast Sodium (Montelukast Sodium 10 Mg Tablet) 10 mg PO BEDTIME [facility] Last Admin: 12/10/22 21:27 Dose: 10 mg Documented By: LITZY Sodium Chloride (0.9 % Sodium Chloride Flush 3 Ml Syringe) 3 ml IVFLUSH QSHIFT PRN PRN Reason: fever Last Admin: 12/10/22 21:28 Dose: 3 ml Documented By: LITZY Labs 12/09/22 05:15 12/09/22 05:15 Procedures Date of Service Date of Service: 12/11/22 Progress Note: A&P Assessment and plan (1) Status post Cisco procedure: Status: Acute (2) Perforated sigmoid colon: Status: Acute Plan 57 year old male admitted with perforated sigmoid diverticulitis now POD #4 s/p cisco procedure . Continues to do well post op with good ostomy function. VSS. Abd remains benign, incision with small amount of erythema, ostomy viable appearing. Cont IV abx. Encouraged OOB/ambulation. RODNEY drain removed. Colostomy education. Home with vna services once comfortable on PO analgesics. Time Spent With Patient Time: Total time managing care of this patient today ____ minutes. Quality Stroke Does the patient have a stroke diagnosis?: No VTE Prior VTE?: No VTE Risk Level:: Surgical - low VTE Device Contraindication: N/A - Device Ordered VTE Drug Contraindication: Treatment Not Indicated
[2022-12-11 10:52] VITALS: BP 119/86; PULSE 102; RESP 20; TEMP 36.4; O2SAT 95
[2022-12-11] MEDS: oxyCODONE HCl Immed Release 5 MG TABLET 10 MG PO ×3 (12:09→21:57)
[2022-12-11 12:13] VITALS: BMI 36.9
--- NOTE | 2022-12-11 12:46 | MHC.CM.PN ---
EMR REVIEWED, PER SURGICAL NOTES PT WILL D/C W/VNA ONCE PAIN IS MANAGED HOWEVER PT IS STILL RECEIVING IV NARCOTIC PAIN MEDS, PT EVAL PENDING AND [facility] FOLLOWING FOR SERVICES, CM WILL CONT TO FOLLOW D/C NEEDS.
[2022-12-11 15:42] VITALS: BP 121/81; PULSE 91; RESP 16; TEMP 36.7; O2SAT 97
[2022-12-11 19:04] VITALS: BP 136/84; PULSE 98; RESP 16; TEMP 36.3; O2SAT 97
[2022-12-11] MEDS: Bictegrav/Emtricit/Tenofov Ala TABLET 1 TAB PO (19:48)
[2022-12-11] MEDS: Montelukast Sodium 10 MG TABLET PO (19:49)
[2022-12-11] MEDS: 0.9 % Sodium Chloride Flush 3 ML SYRINGE IVFLUSH ×2 (19:51→21:58)
[2022-12-12] VITALS: BP 114/77; PULSE 89; RESP 18; TEMP 36.2; O2SAT 97
[2022-12-12] MEDS: oxyCODONE HCl Immed Release 5 MG TABLET 10 MG PO ×4 (02:18→14:40)
[2022-12-12] MEDS: Piperacillin Sodium/Tazobactam 3.375 GM in 0.9 % Sodium Chloride 50 ML IV ×3 (02:19→14:21)
[2022-12-12 04:00] VITALS: BP 135/81; PULSE 86; RESP 18; TEMP 36.8; O2SAT 97
[2022-12-12 06:00] VITALS: BMI 36.8
[2022-12-12 07:38] VITALS: BP 142/82; PULSE 85; RESP 18; TEMP 36.7; O2SAT 96
--- NOTE | 2022-12-12 09:30 | MHC.CM.PN ---
IMM 12/12/22, ANTIC PT WILL BE MEDICALLY CLEARED TODAY HOME W/NEW [facility] FOR ASSISTED W/PT'S MOTHER FOR TRANSPORT.
[2022-12-12] MEDS: Famotidine/PF 20 MG/2 ML VIAL IVPUSH (10:24)
[2022-12-12] MEDS: LORazepam 0.5 MG TABLET PO (10:25)
--- NOTE | 2022-12-12 10:48 | P.PNGS_ITS ---
Subjective Subjective Date of Service: 12/12/22 Interval history: Feels well. Tolerating solid diet. Has been OOB and ambulating. Participated in ostomy care yesterday. Pain well controlled on oral meds. Physical Exam 2 Vital Signs: Vital Signs: Last Vital Signs Temp 98.1 F 12/12/22 07:38 Pulse 85 12/12/22 07:38 Resp 18 12/12/22 07:38 BP 142/82 H 12/12/22 07:38 Pulse Ox 96 12/12/22 07:38 O2 Del Method Room Air 12/12/22 07:38 O2 Flow Rate 2 12/08/22 13:00 FiO2 30 12/08/22 08:00 BMI result Body Mass Index 36.8 Const: General: comfortable, no acute distress and alert O rientation/consciousness: patient oriented x3 GI: Other: incision with persistent erythema at superior aspect- suture removed and wound probed, small evacuation of serous fluid ostomy with liquid output Inspection: Yes distended (mildly ) Palpation (GI): Soft to palpation, Tenderness to palpation present (GI) (incisional), no guarding and not rigid Skin: General skin exam: no rashes or lesions noted Neuro: General: patient oriented x3 and moves all extremities Objective Data Active Medications Albuterol Sulfate (Albuterol Sulfate 90 Mcg 8 Gm Inhaler) 2 puff INHALE RQ4H PRN PRN Reason: SOB / wheezing Bictegravir/Emtricitabine/Tenofovir (Bictegrav/Emtricit/Tenofov Ala Tablet) 1 tab PO BEDTIME [facility] Last Admin: 12/11/22 19:48 Dose: 1 tab Documented By: LITZY Famotidine (Famotidine/Pf 20 Mg/2 Ml Vial) 20 mg IVPUSH DAILY [facility] Last Admin: 12/12/22 10:24 Dose: 20 mg Documented By: AI Heparin Sodium (Porcine) (Heparin Sodium,Porcine 5,000 Unit/Ml Vial) 5,000 unit SUBCUT Q8H [facility] Last Admin: 12/12/22 10:24 Dose: Not Given Documented By: AI Non-Admin Reason: Patient Refused Hydromorphone HCl (Hydromorphone Hcl 1 Mg/Ml Syringe) 1 mg IVPUSH Q3H PRN; Protocol PRN Reason: Pain, Severe (Pain Scale 7-10) Last Admin: 12/11/22 08:28 Dose: 1 mg Documented By: KIRBY Piperacillin Sod/Tazobactam (Sod 3.375 gm/ Sodium Chloride) 50 mls @ 100 mls/hr IV Q6H [facility] Last Infusion: 12/12/22 07:32 Dose: Infused Documented By: AI Lorazepam (Lorazepam 0.5 Mg Tablet) 0.5 mg PO BID [facility] Last Admin: 12/12/22 10:25 Dose: 0.5 mg Documented By: AI Montelukast Sodium (Montelukast Sodium 10 Mg Tablet) 10 mg PO BEDTIME [facility] Last Admin: 12/11/22 19:49 Dose: 10 mg Documented By: LITZY Oxycodone HCl (Oxycodone Hcl Immed Release 5 Mg Tablet) 5 mg PO Q4H PRN PRN Reason: Pain, Moderate(Pain Scale 4-6) Oxycodone HCl (Oxycodone Hcl Immed Release 5 Mg Tablet) 10 mg PO Q4H PRN PRN Reason: Pain, Severe (Pain Scale 7-10) Last Admin: 12/12/22 10:25 Dose: 10 mg Documented By: AI Sodium Chloride (0.9 % Sodium Chloride Flush 3 Ml Syringe) 3 ml IVFLUSH QSHIFT PRN PRN Reason: fever Last Admin: 12/11/22 21:58 Dose: 3 ml Documented By: LITZY Labs 12/09/22 05:15 12/09/22 05:15 Procedures Date of Service Date of Service: 12/12/22 Progress Note: A&P Assessment and plan (1) Status post Cisco procedure: Status: Acute (2) Perforated sigmoid colon: Status: Acute Plan 57 year old male admitted with perforated sigmoid diverticulitis now POD #5 s/p cisco procedure. Continues to do well overall, some incisional erythema and wound was therefore probed with small amount of serous drainage consistent with seroma. Stable for dc to home today with VNA services on PO abx. Patient comfortable with plan. F/u in office in [address] Webster. Time Spent With Patient Time: Total time managing care of this patient today ____ minutes. Quality Stroke Does the patient have a stroke diagnosis?: No VTE Prior VTE?: No VTE Risk Level:: Surgical - low VTE Device Contraindication: N/A - Device Ordered VTE Drug Contraindication: Treatment Not Indicated
[2022-12-12 11:13] VITALS: BP 153/97; PULSE 108; RESP 18; TEMP 36.6; O2SAT 98
--- NOTE | 2022-12-12 13:44 | PM.DS ---
DS: Providers Provider Date of Service: 12/12/22 Date of admission: 12/07/22 17:27 Primary care physician: Apple Neri DO Attending physician on admission: Jose G Webster Consults: 12/07/22 15:49 Consult to Hospitalist Routine Comment: Consulting Provider: Hospitalist Reason For Exam: ETOH abuse, HTN Attending physician on discharge: Jose G Webster DS: Diagnosis Discharge Diagnosis (1) Status post Cisco procedure: Status: Acute (2) Perforated sigmoid colon: Status: Acute DS: Summary Hospital Course Hospital Course: HPI AT ADMISSION: Bruno Villar is a 57 year old male who presents here septic with approximately 3 days of progressively worsening lower abdominal pain. Patient has never had such symptoms before. Normally tolerates a regular diet. He has uneventful bowel habits. Chart was reviewed patient evaluated. Patient has a significant ETOH use history. White blood cell 20. Free air seen on CT scan. HOSPITAL COURSE: He was admitted to the surgical service for further treatment of the perforated diverticulitis. Patient requires emergent surgical intervention. It was recommended to proceed with exploratory laparotomy with most likely sigmoid resection with end colostomy and Cisco's pouch. He was added onto the OR schedule emergently. He was kept NPO, on IVF, IV zosyn. On 12/07/22, an exploratory laparotomy, sigmoid resection, Cisco's pouch, and end colostomy was performed by Dr. Webster without complication. The patient was transferred to the ICU intubated for further care. He had an uncomplicated but slow recovery course. His leukocytosis resolved. He was extubated the following day uneventfully. He remained medically stable and was transferred out the following day. His villar was removed. His diet was slowly advanced from clear liquids to solids as tolerated. He began to have colostomy output. Colostomy education was performed. He was ambulated and his activity increased daily. His RODNEY had scant serosanguineous drainage and was removed. On the day of discharge, he was tolerating a solid diet without nausea or vomiting with good colostomy output. His abdominal pain was controlled on PO analgesics. He did have some incisional erythema and his incision was probed with some serous output, consistent with a seroma. He was discharged to home on 12/12/22 with VNA services on PO Augmentin. He is to follow up in 1 week in the office. Colostomy care: #[id number] change appliance every 3-4 days and as needed. Wound care: some mild erythema superiorly and centrally, dry fluffs/abd pad while wound remains open and draining Status at Discharge Functional status at discharge: independent ambulation Overall status at discharge: patient is progressing back to baseline Time Spent with Patient Time attestation: Total time managing care of this patient today ____ minutes. Discharge coordination time: Less than 30 minutes Quality: Safe Use of Opioids Does Pt have an Active Cancer Diagnosis on the Problem List?: No Quality: Stroke Does the patient have a stroke diagnosis?: No Physical Exam Vital Signs: Vital Signs: Last Vital Signs Temp 97.9 F 12/12/22 11:13 Pulse 108 H 12/12/22 11:13 Resp 18 12/12/22 11:13 BP 153/97 H 12/12/22 11:13 Pulse Ox 98 12/12/22 11:13 O2 Del Method Room Air 12/12/22 11:13 O2 Flow Rate 2 12/08/22 13:00 FiO2 30 12/08/22 08:00 BMI result Body Mass Index 36.8 Const: General: comfortable, no acute distress and alert Orientation/consciousness: patient oriented x3 Resp: Effort & Inspection: normal respiratory effort GI: Other: colostomy with liquid output Inspection: Yes distended (mild) and Yes incision (erythema centrally, some serous drainage) Palpation (GI): Soft to palpation, Tenderness to palpation present (GI) (incisional), no guarding and not rigid Skin: General skin exam: no rashes or lesions noted Neuro: General: patient oriented x3 and moves all extremities DS: Data Data Completed and Pending Completed studies during hospitalization [Text1]: 12/07/22 18:09 Surgical [PTH] Routine Colon, sigmoid, segmental resection: Diverticular-associated segmental colitis with perforation, abscess formation, fibrinopurulent material and patchy necrosis. Labs on day of discharge: Preliminary micro results at discharge 12/07/22 12:56 Blood Culture - Preliminary Blood - Venous No growth after 48 hours. 12/07/22 12:48 Blood Culture - Preliminary Blood - Venous No growth after 48 hours. Discharge Plan Discharge Anticipated Discharge Date/Time: 12/12/22 12:57 Patient Disposition: Home Health Service Discharge Diagnosis: perforated diverticulitis, s/p cisco procedure Referrals: Doris BROTHERS [Outside] - 1 Day ([facility]) Apple Neri DO [Primary Care Provider] - 1 Week Jose G Webster MD [Physician] - 1 Week Discharge Medications: New amoxicillin-pot clavulanate 875-125 mg tablet 1 tab PO BID Qty: 14 0RF oxycodone 5 mg tablet 5 mg PO Q4H PRN (Reason: pain (scale score 7-10)) Qty: 26 0RF Rx Instructions: Partial Fill upon patient request. Take 1-2 tablets every 4-6 hours as needed. Continued bupropion HCl 150 mg tablet sustained-release 12 hr 150 mg PO BID famotidine 40 mg tablet 40 mg PO BEDTIME lorazepam 0.5 mg tablet 0.5 mg PO BID amlodipine 10 mg tablet 10 mg PO DAILY mirtazapine 45 mg tablet 45 mg PO BEDTIME montelukast 10 mg tablet 10 mg PO DAILY lisinopril 40 mg tablet 40 mg PO DAILY aripiprazole 15 mg tablet 15 mg PO DAILY rosuvastatin 5 mg tablet 5 mg PO DAILY Biktarvy 50-200-25 mg tablet 1 tab PO BEDTIME Discharge Orders: Discharge Order (Routine); Ordered 12/12/22 Ordered By: Sandra Murillo Diet: Advance to usual diet Activity on Discharge: No heavy lifting Stand Alone Forms: Patient Portal Discharge page Activity Restrictions/Additional Instructions: Apply an ice pack for short intervals (20 minutes on, followed by at least 20 minutes off) for the first 2 days. Do not apply heat. Do not use creams, lotions, or topical antibiotics. These can cause infection or allergic reaction. Ok to shower 48 hours after your surgery. Remove dressings in 2 days and replace as needed. You have steri strips (small white cloth strips) covering your incision- these will fall off ~1 week. Follow up in office with Dr. Webster in 1 week. ([phone]) Coloplast #[id number] change every 3-4 days and as needed. No heavy lifting (>10lbs) or strenuous activity! Call Your Doctor If: -Your temperature exceeds 101.5? F -You experience excessive pain or swelling -You have an unexpected reaction to medication -You have excessive bleeding -You experience continued vomiting/nausea -Your incision begins to separate -Your incision shows signs of infection such as increased redness, swelling, excessive pain, drainage (light blood or clear fluid is normal) or heat Care Plan Goals: Return to baseline health and resume normal activities following recovery period. Health Concerns: perforated diverticulitis Plan of Treatment: s/p cisco procedure colostomy care antibiotics f/u in office in 1 week Assessment: Doing well post op
--- NOTE | 2022-12-12 13:45 | W.MHC.F2F ---
Service Date Service Date: 12/12/22 Encounter Date of encounter: 12/12/22 Reasons for Services Signs and symptoms assessed: abdominal pain, colostomy output, PO intake, incision appearance Reason for intermediate: wound care and postoperative assessment and/or care Homebound: Leaving the home is medically contraindicated at this time without the asist of a device and/or another person due th the listed conditions above and below. Reason homebound: weakness related to hospital stay and unable to drive Homebound supporting statement: Mr. Blue underwent a cisco procedure for perforated diverticulitis. He has a new colostomy and midline incision and will need colostomy and wound care. Certification: Based on the above findings, I certify that this patient is confined to the home and needs intermittent intermediate care, physical therapy and/or speech therapy, or continues to need occupational therapy. The patient is under my care, and I have initiated the establishment of the plan of care. The patient will be followed by a physician who will periodically review the plan of care. Time Spent With Patient Time: Total time managing care of this patient today ____ minutes.
== END 2022-12-12 16:22 | disposition home health service (06) | DRG 329 ==
LOC: HO.ED 14:41 → HO.SSS 14:42 → HO.ICU 19:17 → HO.IMC 12-09 15:18
PROVIDERS: Physician Assistant Medical; Physician Assistant Surgical; Registered Nurse Community Health; Admitting Provider Internal Medicine Cardiovascular Disease; Emergency Provider Emergency Medicine Emergency Medical Services; PCP Family Medicine; Visit Provider Surgery
PROC: 0DBN0ZZ Excision of Sigmoid Colon, Open Approach (ICD-10-PCS; CPT 49000; principal; 2022-12-07 15:30)
DX: K57.20 Diverticulitis of large intestine with perforation and abscess without bleeding (principal); K65.0 Generalized (acute) peritonitis; E66.8 Other obesity; Z68.36 Body mass index [BMI] 36.0-36.9, adult; I11.9 Hypertensive heart disease without heart failure; E78.5 Hyperlipidemia, unspecified; Z21 Asymptomatic human immunodeficiency virus [HIV] infection status; Z79.899 Other long term (current) drug therapy
CPT/HCPCS: 36415; 71045; 74177; 80048; 80053; 80076; 80307; 81001; 81003; 82803; 83605; 83690; 83735; 84100; 85025; 85610; 85730; 86850; 86900; 86901; 87040; 88307; 94002; 94003; 94799; 99215; 99285; C1758; J0131; J1100; J1170; J1643; J2250; J2270; J2405; J2543; J3010; P9047; Q9967

== ENCOUNTER → 2022-12-07 17:27 | Outpatient (BNV) | payer MEDICARE, MEDICAID, SELFPAY | PROVIDERS: Admitting Provider Internal Medicine Cardiovascular Disease; Emergency Provider Emergency Medicine Emergency Medical Services; PCP Family Medicine; Visit Provider Internal Medicine Cardiovascular Disease | DX: K57.32 Diverticulitis of large intestine without perforation or abscess without bleeding (principal); I11.9 Hypertensive heart disease without heart failure; K65.1 Peritoneal abscess; K63.1 Perforation of intestine (nontraumatic) | CPT/HCPCS: 99291 ==

== ENCOUNTER → 2022-12-07 17:27 | Outpatient (BNV) | payer MEDICARE, MEDICAID, SELFPAY | PROVIDERS: Admitting Provider Internal Medicine Cardiovascular Disease; Emergency Provider Emergency Medicine Emergency Medical Services; PCP Family Medicine; Visit Provider Surgery | DX: K63.1 Perforation of intestine (nontraumatic) (principal) | CPT/HCPCS: 44143; 99024; G0180 ==

== ENCOUNTER 2022-12-19 12:55 | Outpatient (AMB) | payer MEDICARE, MEDICAID, SELFPAY ==
[2022-12-19 13:00] VITALS: BP 159/106; PULSE 110
--- NOTE | 2022-12-19 13:00 | MHC.OFFVIS ---
Intake Vital Signs 12/19/22 13:00 Weight 241 lb BP 159/106 H Blood Pressure Location Rt brachial Position Sitting Pulse 110 H Intake Visit Reasons: S/P Acute abdomen, perforated sigmoid divert. Intake Note: Patient here s/p perforated sigmoid diverticulitis. Patient reports soreness around stoma. Ran out of rx pain meds. Only taking tylenol. Informatics Application Analyst Required: No Accompanied by: Self / Same As Patient Allergies No Known Allergies Allergy (Unverified 12/19/22 13:02) HPI HPI Comments History of Present Illness Details Patient presents for follow-up status post perforated sigmoid diverticulitis. All things considered, is doing quite well. He is tolerating a diet. His ostomy is functioning well. He is learning with assistance of VNA for ostomy management. He is increasing his activity level. He has minimal incisional discomfort. Pathology was reviewed. [facility] Medical History Hypertensive cardiovascular disease or syndrome Manic depression Hyperlipidemia Asthma ETOH abuse HIV (human immunodeficiency virus infection) Social History Household Members: Unknown / Unable to assess Housing: Unknown / Unable to assess Unable to assess alcohol history related to: Unable to respond Alcohol intake: current Alcohol intake frequency: 3 or more drinks per day Alcohol type: hard liquor Patient Tobacco Use Status: Tobacco use Unknown Substance Use Type: Marijuana service: No Physical Exam Vital Signs: Last Vital Signs Pulse 110 H 12/19/22 13:00 BP 159/106 H 12/19/22 13:00 GI Other: Abdomen soft. Much less distended from original presentation. Midline incision healing uneventfully. Ostomy functioning well and maturing. Assessment & Plan Assessment & Plan (1) Status post Felipe procedure: Code(s): Z93.3 - Colostomy status (2) Diverticulitis large intestine: Code(s): K57.32 - Diverticulitis of large intestine without perforation or abscess without bleeding (3) Perforated sigmoid colon: Code(s): K63.1 - Perforation of intestine (nontraumatic) (4) Abdominal visceral abscess: Code(s): K65.1 - Peritoneal abscess Plan Patient is continue current plan. Increase his activity level as tolerated, continue convalescence, and will see me in approximately 3 weeks time or p.r.n.. Coding Level of Care Code Global (50088) Diagnoses Status post Felipe procedure Z93.3 Diverticulitis large intestine K57.32 Perforated sigmoid colon K63.1 Abdominal visceral abscess K65.1
== END 2022-12-19 13:16 | disposition home or self-care (01) ==
PROVIDERS: PCP Family Medicine; Visit Provider Surgery
DX: Z93.3 Colostomy status (principal); K57.32 Diverticulitis of large intestine without perforation or abscess without bleeding; K63.1 Perforation of intestine (nontraumatic); K65.1 Peritoneal abscess
CPT/HCPCS: 99024

== ENCOUNTER → 2022-12-19 12:55 | Outpatient (BNVA) | payer MEDICARE, MEDICAID, SELFPAY | PROVIDERS: PCP Family Medicine; Visit Provider Surgery ==

== ENCOUNTER 2023-01-14 14:53 | Outpatient (AMB) | payer MEDICARE, MEDICAID, SELFPAY ==
--- NOTE | 2023-01-14 15:03 | MHC.OFFVIS ---
Intake Vital Signs 01/14/23 15:04 Weight 242 lb BP 123/84 Blood Pressure Location Rt brachial Position Sitting Pulse 107 H Intake Visit Reasons: S/P acute abdomen, perforated sigmoid diver Intake Note: Patient here s/p acute abd, perforated sigmoid diverticulitis. Patient reports healing well. Lead Refiner Required: No Accompanied by: Self / Same As Patient Allergies No Known Allergies Allergy (Unverified 01/14/23 15:05) HPI HPI Comments History of Present Illness Details Patient presents for follow-up. All things considered he is doing quite well. He has time diet. Having regular ostomy output. He has no incisional issues or complaints. He is slowly but steadily increasing his activity level. COUNTS INCLUDE 234 BEDS AT THE [facility] Medical History Hypertensive cardiovascular disease or syndrome Manic depression Hyperlipidemia Asthma ETOH abuse HIV (human immunodeficiency virus infection) Social History Household Members: Unknown / Unable to assess Housing: Unknown / Unable to assess Unable to assess alcohol history related to: Unable to respond Alcohol intake: current Alcohol intake frequency: 3 or more drinks per day Alcohol type: hard liquor Patient Tobacco Use Status: Tobacco use Unknown Substance Use Type: Marijuana service: No Physical Exam Vital Signs: Last Vital Signs Pulse 107 H 01/14/23 15:04 BP 123/84 01/14/23 15:04 GI Other: Abdomen soft. Incision clean dry and intact. Ostomy functioning. Assessment & Plan Assessment & Plan (1) Status post Felipe procedure: Code(s): Z93.3 - Colostomy status (2) Diverticulitis large intestine: Code(s): K57.32 - Diverticulitis of large intestine without perforation or abscess without bleeding (3) Perforated sigmoid colon: Code(s): K63.1 - Perforation of intestine (nontraumatic) Plan Discussed the patient that in approximately 6 months from date of surgery consideration will be made for colostomy reversal. He will need a colonoscopy prior to this. This will be discussed at his next visit which will be in approximately 2 months time or p.r.n.. All questions were answered. Coding Level of Care Code Global (40758) Diagnoses Status post Felipe procedure Z93.3 Diverticulitis large intestine K57.32 Perforated sigmoid colon K63.1
[2023-01-14 15:04] VITALS: BP 123/84; PULSE 107
== END 2023-01-14 15:12 | disposition home or self-care (01) ==
PROVIDERS: PCP Family Medicine; Visit Provider Surgery
DX: Z93.3 Colostomy status (principal); K57.32 Diverticulitis of large intestine without perforation or abscess without bleeding; K63.1 Perforation of intestine (nontraumatic)
CPT/HCPCS: 99024

== ENCOUNTER → 2023-01-14 14:53 | Outpatient (BNVA) | payer MEDICARE, MEDICAID, SELFPAY | PROVIDERS: PCP Family Medicine; Visit Provider Surgery ==

== ENCOUNTER 2023-03-12 12:31 | Outpatient (AMB) | payer MEDICARE, MEDICAID, SELFPAY ==
[2023-03-12 12:42] VITALS: BP 138/85; PULSE 104
--- NOTE | 2023-03-12 12:42 | MHC.OFFVIS ---
Intake Vital Signs 03/12/23 12:42 Weight 240 lb BP 138/85 Blood Pressure Location Rt brachial Position Sitting Pulse 104 H Intake Visit Reasons: 2 mth follow up perforated sigmoid diver Intake Note: Patient viridiana for 2m f/u perforated sigmoid diverticulitis. Patient reports no changes in medical hx. Director Trading Required: No Accompanied by: Self / Same As Patient Allergies No Known Allergies Allergy (Unverified 03/12/23 12:44) HPI HPI Comments History of Present Illness Details Patient presents for follow-up. He is anxious to have his colostomy reversed. He is otherwise tolerating his diet. Ostomy is functioning. Occasional ostomy bag issue with leakage. [facility] Medical History Hypertensive cardiovascular disease or syndrome Manic depression Hyperlipidemia Asthma ETOH abuse HIV (human immunodeficiency virus infection) Social History Household Members: Unknown / Unable to assess Housing: Unknown / Unable to assess Unable to assess alcohol history related to: Unable to respond Alcohol intake: current Alcohol intake frequency: 3 or more drinks per day Alcohol type: hard liquor Comment: pt refuse bed alarm Patient Tobacco Use Status: Tobacco use Unknown Substance Use Type: Marijuana service: No Physical Exam Vital Signs: Last Vital Signs Pulse 104 H 03/12/23 12:42 BP 138/85 03/12/23 12:42 Chest Other: Chest breath sounds bilaterally, HS 1 in 2 GI Other: Abdomen soft. Incision healed. Left lower quadrant ostomy functioning. Assessment & Plan Assessment & Plan (1) Status post Felipe procedure: Code(s): Z93.3 - Colostomy status (2) Diverticulitis large intestine: Code(s): K57.32 - Diverticulitis of large intestine without perforation or abscess without bleeding Plan Current plan is to arrange for pre colostomy reversals screening colonoscopy and patient will see me after this and arrangements will be made for colostomy takedown. Coding Level of Care Code Global (56480) Diagnoses Status post Felipe procedure Z93.3 Diverticulitis large intestine K57.32
== END 2023-03-12 12:58 | disposition home or self-care (01) ==
PROVIDERS: PCP Family Medicine; Visit Provider Surgery
DX: Z93.3 Colostomy status (principal); K57.32 Diverticulitis of large intestine without perforation or abscess without bleeding
CPT/HCPCS: 99024

== ENCOUNTER → 2023-03-12 12:31 | Outpatient (BNVA) | payer MEDICARE, MEDICAID, SELFPAY | PROVIDERS: PCP Family Medicine; Visit Provider Surgery | DX: K57.32 Diverticulitis of large intestine without perforation or abscess without bleeding (principal); Z93.3 Colostomy status | CPT/HCPCS: 99212 ==

== ENCOUNTER 2023-03-29 09:43 | Outpatient (AMB) | payer MEDICARE, MEDICAID, SELFPAY ==
--- NOTE | 2023-03-29 09:47 | MHC.OFFVIS ---
Intake Vital Signs 03/29/23 09:53 Height 5 ft 11 in Weight 233 lb 11.04 oz BMI 32.6 BP 139/90 H Blood Pressure Location Lt brachial Position Sitting Pulse 117 H Intake Visit Reasons: Diverticulitis- ostomy Intake Note: Bruno presents in the office as a new patient for diverticulitis. CC: HE states he is not having any concerns at this time. Allergies No Known Allergies Allergy (Unverified 03/29/23 09:54) HPI Diverticulitis- ostomy HPI Details _ yr old patient being seen for assessment for _ PMH: [facility] [address] [place] [address] Office Visit Report Signed Patient: Bruno Blue V MR#: [id number] : 1965 Acct:[id number] Age/Sex: 57 / M 58 yr old me here for f/u He had an acute abdomen with sigmoid perforation and had colostomy 11/2022 He has been doing well with no complaints denies abdominal pain good o/p from stoma no blood last colonoscopy about 5 yrs ago, at [facility], can;t recall results Medical History Hypertensive cardiovascular disease or syndrome Manic depression Hyperlipidemia Asthma ETOH abuse HIV (human immunodeficiency virus infection) Surgical: perforated colon and partial colectomy with colostomy Social History Alcohol intake: current Alcohol intake frequency: 3 or more drinks per day Alcohol type: hard liquor Patient Tobacco Use Status: Tobacco use Unknown Substance Use Type: Marijuana service: No FH: No FH of colon cancer ROS Constitutional : No Weight loss, No Fever, No Chills ENT/Mouth : No sore throat, No Rhinorrhea Eyes: No Swelling, No Redness Cardiovascular : No Chest Pain, No SOB, No Edema Respiratory : No Cough, No Sputum, No Wheezing Gastrointestinal : see HPI Genitourinary : NO Dysuria, No Urinary Frequency, No Hematuria, No Urgency Musculoskeletal : No joint pain, No Myalgias, No Joint Swelling Skin : No Skin Lesions, No rash Neuro : No Weakness, No Numbness, No Dizziness, No Headache Psych : No Anxiety/Panic, No Depression Heme/Lymph: No Bruising, No Lymphadenopathy Endocrine : No Polyuria, No Polydipsia All other systems reviewed and are negative. EXAM: GENERAL: The patient is well developed and nontoxic. VITAL SIGNS:see workflow HEENT: Nonicteric sclerae, PERRLA, EOMI. Oropharynx clear. Moist mucous membranes. Conjunctivae appear well perfused. No thyroid mass. CHEST: Chest wall is nontender. HEART: Regular rate and rhythm without murmurs. LUNGS: Clear to auscultation bilaterally. ABDOMEN: Soft, positive bowel sounds, nontender, no organomegaly.no flank tenderness--lap scar noted, stoma looks healthy SKIN: No rash, no excessive bruising, petechiae, or purpura. NEUROLOGIC: Cranial nerves II-XII intact without motor/sensory deficit. psych-nml A/P: 1/ sig perforation with colostomy, surgeon would like colonoscopy prior to reversal of stoma Plan: 1/ colonoscopy thru the stoma with suprep and clears day before [facility] Medical History Hypertensive cardiovascular disease or syndrome Manic depression Hyperlipidemia Asthma ETOH abuse HIV (human immunodeficiency virus infection) Surgical History (Updated 03/29/23 @ 09:54 by SEAN Mccall) Hx of colonoscopy Social History Household Members: Unknown / Unable to assess Housing: Unknown / Unable to assess Unable to assess alcohol history related to: Unable to respond Alcohol intake: current Alcohol intake frequency: 3 or more drinks per day Alcohol type: hard liquor Comment: pt refuse bed alarm Patient Tobacco Use Status: Tobacco use Unknown Substance Use Type: Marijuana service: No Physical Exam Vital Signs: Last Vital Signs Pulse 117 H 03/29/23 09:53 BP 139/90 H 03/29/23 09:53 BMI result Body Mass Index 32.6 Assessment & Plan Assessment & Plan (1) Perforated sigmoid colon: Code(s): K63.1 - Perforation of intestine (nontraumatic) Plan: A/P: 1/ sig perforation with colostomy, surgeon would like colonoscopy prior to reversal of stoma Plan: 1/ colonoscopy thru the stoma with suprep and clears day before Medications: New sodium,potassium,mag sulfates 17.5-3.13-1.6 gram (Suprep Bowel Prep Kit) DILUTE; drink 1/2 at 6-8 pm and half at 11 PM- 1AM 354 mL 0RF Coding Level of Care Code New Pt Level 4 (98444) Diagnoses Perforated sigmoid colon K63.1
[2023-03-29 09:53] VITALS: BP 139/90; PULSE 117; BMI 32.6
== END 2023-03-29 11:07 | disposition home or self-care (01) ==
PROVIDERS: PCP Family Medicine; Visit Provider Internal Medicine Gastroenterology
DX: K63.1 Perforation of intestine (nontraumatic) (principal)
CPT/HCPCS: 99204

== ENCOUNTER → 2023-03-29 09:43 | Outpatient (BNVA) | payer MEDICARE, MEDICAID, SELFPAY | PROVIDERS: PCP Family Medicine; Visit Provider Internal Medicine Gastroenterology | DX: K57.92 Diverticulitis of intestine, part unspecified, without perforation or abscess without bleeding (principal); K63.1 Perforation of intestine (nontraumatic) | CPT/HCPCS: 99202 ==

== ENCOUNTER 2023-05-07 09:05 | Day surgery (SDC) | payer MEDICARE, MEDICAID, SELFPAY ==
[2023-05-03 14:44] VITALS: BMI 32.6
--- NOTE | 2023-05-06 12:21 | HO.ANESPROP2 ---
Documented by User: Maria Ines Hawkins NP 05/06/23 12:23 HPI - Anesthesia Eval Consult details Narrative: 58yo M for Colonoscopy ostomy in situ (perforated divertic 11/2022) [facility] Active Problems Active Problems: All Active Problems (Updated 03/29/23 @ 09:54 by SEAN Mccall) Status post Felipe procedure (Acute) Diverticulitis large intestine (Acute) Hypertensive cardiovascular disease or syndrome (Acute) Abdominal visceral abscess (Acute) Perforated sigmoid colon (Acute) Past Medical History Medical History GERD (gastroesophageal reflux disease) Perforated diverticulum Hypertensive cardiovascular disease or syndrome Manic depression Hyperlipidemia Asthma ETOH abuse HIV (human immunodeficiency virus infection) Family History Family history of problems with anesthesia: No Surgical History Surgical History History of creation of ostomy Hx of cholecystectomy Hx of colonoscopy History of Problems with Anesthesia: Yes (h/o difficult intubation) Social History Social History Household Members: Unknown / Unable to assess Housing: Unknown / Unable to assess Unable to assess alcohol history related to: Unable to respond Alcohol intake: current Alcohol intake frequency: holidays/special occasions only Alcohol type: hard liquor Comment: pt refuse bed alarm Patient Tobacco Use Status: Never used Tobacco Use of substances other than those prescribed or required for medical reasons: Yes Substance Use Type: Marijuana Substance Use Frequency: Daily Are you DNR?: No Advance Directives: No Advance Directives Information Provided: Yes service: No Meds Allergies Allergy/AdvReac Type Severity Reaction Status Date / Time No Known Allergies Allergy Verified 05/07/23 09:53 Home Medications Medication Instructions Recorded Confirmed Last Taken Type amlodipine 10 mg tablet 10 mg PO DAILY 12/07/22 05/07/23 05/07/23 07:30 History aripiprazole 15 mg tablet 15 mg PO DAILY 12/07/22 05/07/23 05/07/23 07:30 History bictegravir 50 mg-emtricitabine 1 tab PO BEDTIME 12/07/22 05/07/23 12/06/22 History 200 mg-tenofovir alafenam 25 mg tablet (Biktarvy) bupropion HCl 150 mg tablet,12 hr 150 mg PO BID 12/07/22 05/07/23 05/07/23 07:30 History sustained-release famotidine 40 mg tablet 40 mg PO BEDTIME 12/07/22 05/07/23 05/07/23 07:30 History lisinopril 40 mg tablet 40 mg PO DAILY 12/07/22 05/07/23 12/06/22 History lorazepam 0.5 mg tablet 0.5 mg PO BID 12/07/22 05/07/23 12/06/22 History mirtazapine 45 mg tablet 45 mg PO BEDTIME 12/07/22 05/07/23 12/06/22 History montelukast 10 mg tablet 10 mg PO DAILY 12/07/22 05/07/23 05/07/23 07:30 History rosuvastatin 5 mg tablet 5 mg PO DAILY 12/07/22 05/07/23 12/06/22 History Exam Height,Weight and Vital Signs: Height 5 ft 11 in Weight 105.999 kg Pertinent Lab Results Pertinent Lab Results: Laboratory Tests 12/09/22 05:15 WBC 7.7 Hgb 12.6 L Hct 36.8 L Plt Count 180 Sodium 139 Potassium 4.1 Chloride 108 Carbon Dioxide 25 BUN 20 H Creatinine 0.86 Assessment and Plan Assessment Anesthesia Assessment: Chart Reviewed Final Anesthetic Review Family History of Problems with Anesthesia: No History of Problems with Anesthesia: Yes (h/o difficult intubation) Documented by User: Cyndee Bello MD 05/07/23 11:13 [facility] Active Problems Active Problems: All Active Problems (Updated 05/07/23 @ 10:39 by Cyndee Bello MD) Status post Felipe procedure (Acute) Diverticulitis large intestine (Acute) Hypertensive cardiovascular disease or syndrome (Acute) Abdominal visceral abscess (Acute) Perforated sigmoid colon (Acute) Marijuana- last yesterday Denies heavy ETOH use now. States only social at special occasions Abdomen full looking- denies h/o ascites Denies ERNESTO GERD Hyperlipidemia Past Medical History Medical History GERD (gastroesophageal reflux disease) Perforated diverticulum Hypertensive cardiovascular disease or syndrome Manic depression Hyperlipidemia Asthma ETOH abuse HIV (human immunodeficiency virus infection) Family History Family history of problems with anesthesia: No Surgical History Surgical History History of creation of ostomy Hx of cholecystectomy Hx of colonoscopy Social History Social History Household Members: Unknown / Unable to assess Housing: Unknown / Unable to assess Unable to assess alcohol history related to: Unable to respond Alcohol intake: current Alcohol intake frequency: holidays/special occasions only Alcohol type: hard liquor Comment: pt refuse bed alarm Patient Tobacco Use Status: Never used Tobacco Use of substances other than those prescribed or required for medical reasons: Yes Substance Use Type: Marijuana Substance Use Frequency: Daily Are you DNR?: No Advance Directives: No Advance Directives Information Provided: Yes service: No Meds Allergies Allergy/AdvReac Type Severity Reaction Status Date / Time No Known Allergies Allergy Verified 05/07/23 09:53 Home Medications Medication Instructions Recorded Confirmed Last Taken Type amlodipine 10 mg tablet 10 mg PO DAILY 12/07/22 05/07/23 05/07/23 07:30 History aripiprazole 15 mg tablet 15 mg PO DAILY 12/07/22 05/07/23 05/07/23 07:30 History bictegravir 50 mg-emtricitabine 1 tab PO BEDTIME 12/07/22 05/07/23 12/06/22 History 200 mg-tenofovir alafenam 25 mg tablet (Biktarvy) bupropion HCl 150 mg tablet,12 hr 150 mg PO BID 12/07/22 05/07/23 05/07/23 07:30 History sustained-release famotidine 40 mg tablet 40 mg PO BEDTIME 12/07/22 05/07/23 05/07/23 07:30 History lisinopril 40 mg tablet 40 mg PO DAILY 12/07/22 05/07/23 12/06/22 History lorazepam 0.5 mg tablet 0.5 mg PO BID 12/07/22 05/07/23 12/06/22 History mirtazapine 45 mg tablet 45 mg PO BEDTIME 12/07/22 05/07/23 12/06/22 History montelukast 10 mg tablet 10 mg PO DAILY 12/07/22 05/07/23 05/07/23 07:30 History rosuvastatin 5 mg tablet 5 mg PO DAILY 12/07/22 05/07/23 12/06/22 History Exam Height,Weight and Vital Signs: Height 5 ft 11 in Weight 105.999 kg Vital Signs Temp Pulse Resp BP Pulse Ox O2 Del Method 05/07/23 10:04 99.0 F 102 H 16 131/76 96 Room Air Airway Mallampati Class: III (H/o difficult intubation but easy intubation 11/2022 with proview) TM Dist: >3cm Neck ROM: Full Loose/Missing/Broken Teeth: Yes (Missing 2 teeth bottom front, and molars. Denies loose or broken teeth) Heart: RRR Lungs: CTAB Assessment and Plan Assessment Anesthesia Assessment: Anesthesia Plan Discussed and Chart Reviewed Final Anesthetic Review Family History of Problems with Anesthesia: No NPO: Yes ASA Class: III Final Preanesthetic Review: No Changes in Pt Med Stat, Meds/Allgs Chart Reviewed, Consent Obtained/Reviewed and Anes Risks/Benef Reviewed Patient Risk: Intermediate Procedure Risk: Low Assessment/Block/Sedation in SS: Assess/Block/Sedation-SS Anesthetic Plan Anesthetic Plan: TIVA Disposition: Standard PACU
[2023-05-07 09:54] VITALS: BMI 33.0
[2023-05-07 10:04] VITALS: BP 131/76; PULSE 102; RESP 16; TEMP 37.2; O2SAT 96
--- NOTE | 2023-05-07 10:15 | MHC.SHP ---
Pre-Procedural Eval Section A - 24 Hr Update-Section A only Date of Service: 05/07/23 Section B - Complete if H&P > 30 days Chief Complaint: Diverticulitis of large intestine without perforat Relevant Family History (Specify if Yes): No Relevant Social History: Alcohol Use Present Medications: see Short Stay Collaborative assessment Medical History: Significant History (Hypertensive cardiovascular disease or syndrome Manic depression Hyperlipidemia Asthma ETOH abuse HIV (human immunodeficiency virus infection)) History of Previous Operations: Relevant previous surgery/procedure and date(s) (partial colectomy, colonoscopy) Allergies: Allergies Allergy/AdvReac Type Severity Reaction Status Date / Time No Known Allergies Allergy Verified 05/07/23 09:53 Review of Systems Sugical H&P ROS: Negative: Constitution, Cardiovascular, Respiratory, Neurological, Psychiatric, Hem-Onc, Allergic/Immunologic, Gastrointestinal, Genitourinary, Musculoskeletal, Integumentary, Endocrine and Eyes/Ears/Nose/Throat Exam Surgical H&P Exam: Normal: HEENT, Normal: Heart, Normal: Lungs, Normal: Extremities, Normal: Skin and Normal: Neurological and Significant Findings: Abdomen (stoma noted ) Plan Diagnosis/Plan: Unchanged I have reviewed the history and physical and performed a pertinent physical examination on my patient. No changes have occurred unless specified. Time Spent With Patient Time: Total time managing care of this patient today ____ minutes.
[2023-05-07] MEDS: Lactated Ringers 1,000 ML 100 ML IVCONT (10:20)
--- NOTE | 2023-05-07 10:57 | W.PM.OPN ---
Operative Note Operative Note Date of Service: 05/07/23 Narrative: Operative Information Procedure Description: Colonoscopy Indication: screening Anesthesia: MAC COLONOSCOPY Instrument: Olympus variable stiffness pediatric scope 190L Colonoscopy Monitoring: Vital signs and clinical assessment, continuous EKG monitoring, Pulse oximetry, Carbon Dioxide monitoring and blood pressure monitoring were done throughout the procedure. Colon withdrawal time was 15 minutes. Procedure: The patient was placed in the left lateral decubitis position and pre-procedure medications were administered. After a digital rectal examination of the ano-rectum, the video colonoscope was inserted into the colostomy and advanced through the colon to the cecum/TI. The colonoscope was slowly withdrawn in a retrograde panoramic fashion and the colon mucosa was carefully examined. Findings and interventions are described below. Procedure Difficulty: easy Findings: Terminal Ileum-few scattered erosions bx taken Cecum: 3-4 mm sessile polyp removed with cold forceps, and random bx taken Ascending Colon: distal AC a prolapsing lipoma was noted, with yellowish tinge and pos pillow sign Transverse Colon -normal Descending Colon: 6-9 mm sessile polyp removed with cold snare The scope was then withdrawn and the rectal stump was inspected, no masses or polyps noted, few diverticula seen in distal sigmoid remnant. Colon preparation: [place] Bowel Preparation Scale Right colon; 2 Transverse colon: 2 Left colon; 1-2 (0 = Unprepared colon segment with mucosa not seen due to solid stool that cannot be cleared. 1 = Portion of mucosa of the colon segment seen, but other areas of the colon segment not well seen due to staining, residual stool and/or opaque liquid. 2 = Minor amount of residual staining, small fragments of stool and/or opaque liquid, but mucosa of colon segment seen well. 3 = Entire mucosa of colon segment seen well with no residual staining, small fragments of stool or opaque liquid) Impression and Post Procedure Diagnosis: ileitis polyps lipoma diverticulosis Plan: High fiber diet leaflet Avoid straining at stool, epsom salts and sitz bath, anusol supps or cream Repeat Colonoscopy in 3 years deu to fair prep and polyps or earlier if clinically indicated If any sx of IBD, crohns can consider CTe for further eval, check nsaid usage Above findings were reviewed with the patient and relevant handouts were provided if indicated.
[2023-05-07 11:55] VITALS: BP 127/83; PULSE 97; RESP 16; TEMP 37; O2SAT 97
[2023-05-07 12:10] VITALS: BP 135/86; PULSE 75; RESP 18; TEMP 36.9; O2SAT 97
== END 2023-05-07 12:35 | disposition home or self-care (01) ==
PROVIDERS: PCP Family Medicine; Visit Provider Internal Medicine Gastroenterology
PROC: 0DJD8ZZ Inspection of Lower Intestinal Tract, Via Natural or Artificial Opening Endoscopic (ICD-10-PCS; CPT 45378; principal; 2023-05-07 12:30)
DX: Z12.11 Encounter for screening for malignant neoplasm of colon (principal); D12.0 Benign neoplasm of cecum; D12.4 Benign neoplasm of descending colon; D17.79 Benign lipomatous neoplasm of other sites; K52.9 Noninfective gastroenteritis and colitis, unspecified; K57.30 Diverticulosis of large intestine without perforation or abscess without bleeding; B20 Human immunodeficiency virus [HIV] disease; I11.9 Hypertensive heart disease without heart failure; E78.5 Hyperlipidemia, unspecified; Z93.3 Colostomy status; K21.9 Gastro-esophageal reflux disease without esophagitis
CPT/HCPCS: 44394; 44389; 88305; J2704

== ENCOUNTER → 2023-05-07 09:05 | Outpatient (BNV) | payer MEDICARE, MEDICAID, SELFPAY | PROVIDERS: PCP Family Medicine; Visit Provider Internal Medicine Gastroenterology | DX: Z12.11 Encounter for screening for malignant neoplasm of colon (principal); D12.0 Benign neoplasm of cecum; D12.4 Benign neoplasm of descending colon; D17.5 Benign lipomatous neoplasm of intra-abdominal organs; K52.9 Noninfective gastroenteritis and colitis, unspecified | CPT/HCPCS: 45380; 45385 ==

== ENCOUNTER 2023-05-20 10:06 | Outpatient (AMB) | payer MEDICARE, MEDICAID, SELFPAY ==
[2023-05-20 10:11] VITALS: BP 130/74; PULSE 95
--- NOTE | 2023-05-20 10:11 | MHC.OFFVIS ---
Intake Vital Signs 05/20/23 10:11 Weight 238 lb BP 130/74 Blood Pressure Location Lt brachial Position Sitting Pulse 95 Intake Visit Reasons: Discuss reversal Intake Note: Patient here to discuss stoma reversal. Patient c/o: recent colonoscopy was WNL Executive Manager Required: No Accompanied by: Self / Same As Patient Allergies No Known Allergies Allergy (Verified 05/20/23 10:26) HPI HPI Comments History of Present Illness Details Patient presents status post colonoscopy. According to the patient, the were benign polyps but no other issues or complaints. Patient is very anxious to have his colostomy reversed. [facility] Medical History GERD (gastroesophageal reflux disease) Perforated diverticulum Hypertensive cardiovascular disease or syndrome Manic depression Hyperlipidemia Asthma ETOH abuse HIV (human immunodeficiency virus infection) Surgical History History of creation of ostomy Hx of cholecystectomy Hx of colonoscopy Social History Household Members: Unknown / Unable to assess Housing: Unknown / Unable to assess Unable to assess alcohol history related to: Unable to respond Alcohol intake: current Alcohol intake frequency: holidays/special occasions only Alcohol type: hard liquor Comment: pt refuse bed alarm Patient Tobacco Use Status: Never used Tobacco Substance Use Type: Marijuana service: No Physical Exam Vital Signs: Last Vital Signs Pulse 95 05/20/23 10:11 BP 130/74 05/20/23 10:11 Chest Other: Chest breath sounds bilaterally, HS 1 in 2 GI Other: Abdomen corpulent, soft, midline incision well healed. Ostomy clean dry and intact. Assessment & Plan Assessment & Plan (1) Status post Felipe procedure: Code(s): Z93.3 - Colostomy status Plan Risks, benefits, alternatives of colostomy reversal reviewed the patient included but not limited to bleeding, infection, numbness, pain, scarring, temporary ileostomy, anastomotic leak, the patient wished to proceed. All questions answered. Arrangements were made for this. Patient will receive a full bowel prep as well as rectal stump enemas day prior. Medications: New neomycin Take 2 500mg tablets (1000mg) at 2pm, 3pm, and 10pm on the day prior to the surgery 1 g (2 x 500 mg) PO .3 times 6 tabs 0RF for pre-op prep for colon surgery 3 doses Z93.3 - Colostomy status sodium,potassium,mag sulfates 17.5-3.13-1.6 gram (Suprep Bowel Prep Kit) take 1 bottle at 6pm and the second at 11 pm the night before the procedure 16 oz PO ONCE 354 mL 0RF erythromycin Take 2 500mg tablets (1000mg) at 2pm, 3pm and 10pm on the day prior to the surgery. 1,000 mg (2 x 500 mg) PO .3 times 6 tabs 0RF pre-op prep 1 day Z93.3 - Colostomy status Coding Level of Care Code Est Pt Level 5 (46729) Diagnoses Status post Felipe procedure Z93.3
== END 2023-05-20 10:18 | disposition home or self-care (01) ==
PROVIDERS: PCP Family Medicine; Visit Provider Surgery
DX: Z93.3 Colostomy status (principal)
CPT/HCPCS: 99214

== ENCOUNTER 2023-05-20 10:06 | Outpatient (AMB) | payer MEDICARE, MEDICAID, SELFPAY ==
--- NOTE | 2023-05-20 10:17 | A.OFFVIS_ITS ---
Intake Vital Signs 05/20/23 10:25 Height 5 ft 11 in Weight 238 lb BMI 33.2 BP 130/74 Blood Pressure Location Lt brachial Position Sitting Pulse 95 Intake Visit Reasons: S/p Colonoscopy Intake Note: Bruno presents in the office as a follow up colonoscopy. CC: HE states that he is just here for results - no concerns. Allergies No Known Allergies Allergy (Verified 05/20/23 10:26) HPI S/p Colonoscopy HPI Details 58 yr old here for f/u Recap: He had an acute abdomen with sigmoid perforation and had colostomy 11/2022 He has been doing well with no complaints denies abdominal pain good o/p from stoma no blood last colonoscopy about 5 yrs ago, at [facility], can;t recall results Colonoscopy: 05/18 ileitis polyps lipoma diverticulosis path: tubular adenoma, ileitis INTERIM: He has no sx feels well no constipation he has date for reversal of his stoma now EXAM: GENERAL: The patient is well developed and nontoxic. VITAL SIGNS:see workflow HEENT: Nonicteric sclerae, PERRLA, EOMI. Oropharynx clear. Moist mucous membranes. Conjunctivae appear well perfused. No thyroid mass. CHEST: Chest wall is nontender. HEART: Regular rate and rhythm without murmurs. LUNGS: Clear to auscultation bilaterally. ABDOMEN: Soft, positive bowel sounds, nontender, no organomegaly.no flank tenderness--stoma noted SKIN: No rash, no excessive bruising, petechiae, or purpura. NEUROLOGIC: Cranial nerves II-XII intact without motor/sensory deficit. A/P: 1/ Tubular adenomas- 2/ ileitis PLAN: 1/ rept colo 3 yrs 2/ no sx from ileitis --will cont to mon itor--if anything changes then do CTe [facility] Medical History GERD (gastroesophageal reflux disease) Perforated diverticulum Hypertensive cardiovascular disease or syndrome Manic depression Hyperlipidemia Asthma ETOH abuse HIV (human immunodeficiency virus infection) Surgical History History of creation of ostomy Hx of cholecystectomy Hx of colonoscopy Social History Household Members: Unknown / Unable to assess Housing: Unknown / Unable to assess Unable to assess alcohol history related to: Unable to respond Alcohol intake: current Alcohol intake frequency: holidays/special occasions only Alcohol type: hard liquor Comment: pt refuse bed alarm Patient Tobacco Use Status: Never used Tobacco Substance Use Type: Marijuana service: No Physical Exam Vital Signs: Last Vital Signs Pulse 95 05/20/23 10:25 BP 130/74 05/20/23 10:25 BMI result Body Mass Index 33.2 Assessment & Plan Assessment & Plan (1) Perforated sigmoid colon: Code(s): K63.1 - Perforation of intestine (nontraumatic) Plan: A/P: 1/ Tubular adenomas- 2/ ileitis PLAN: 1/ rept colo 3 yrs 2/ no sx from ileitis --will cont to monitor--if anything changes then do CTe Coding Level of Care Code Est Pt Level 3 (99881) Diagnoses Perforated sigmoid colon K63.1
[2023-05-20 10:25] VITALS: BP 130/74; PULSE 95; BMI 33.2
== END 2023-05-20 11:20 | disposition home or self-care (01) ==
PROVIDERS: PCP Family Medicine; Visit Provider Internal Medicine Gastroenterology
DX: K63.1 Perforation of intestine (nontraumatic) (principal)
CPT/HCPCS: 99213

== ENCOUNTER → 2023-05-20 10:06 | Outpatient (BNVA) | payer MEDICARE, MEDICAID, SELFPAY | PROVIDERS: PCP Family Medicine; Visit Provider Internal Medicine Gastroenterology | DX: K63.1 Perforation of intestine (nontraumatic) (principal); Z93.3 Colostomy status | CPT/HCPCS: 99212 ==

== ENCOUNTER → 2023-06-28 12:51 | Outpatient (BNV) | payer MEDICARE, MEDICAID, SELFPAY | PROVIDERS: Admitting Provider Surgery; PCP Family Medicine; Visit Provider Internal Medicine Cardiovascular Disease | DX: I11.9 Hypertensive heart disease without heart failure (principal) | CPT/HCPCS: 93010 ==

== ENCOUNTER 2023-07-04 11:41 | Inpatient (IN) | payer MEDICARE, MEDICAID, SELFPAY ==
--- NOTE | 2023-06-28 | ECG_ITS ---
Test Reason : pre op Blood Pressure : / mmHG Vent. Rate : 097 BPM Atrial Rate : 097 BPM P-R Int : 166 ms QRS Dur : 096 ms QT Int : 366 ms P-R-T Axes : 051 045 031 degrees QTc Int : 464 ms Normal sinus rhythm Normal ECG When compared with ECG of 18-DEC-2017 09:00, No significant change was found Referred By: Maria Ines Hawkins Electronically Signed By:VICTORIANO BOWSER MD
[2023-06-28 12:03] VITALS: BP 133/85; PULSE 98; RESP 20; O2SAT 98; BMI 33.3
--- NOTE | 2023-06-28 12:15 | P.CONAN_ITS ---
Documented by User: Maria Ines Hawkins NP 07/02/23 13:03 HPI - Anesthesia Eval Consult details Narrative: 58yo M for OPEN colostomy reversal, lithotomy garnica sigmoidoscopy s/p ex lap, ostomy 11/2022 with GA-ETT 7.5 No recent illness. No CP/SOB with walking. GERD. H2 block daily controlls well Asthma. Rescue inaler only with spring allergies PMFSH Active Problems Active Problems: All Active Problems Status post Felipe procedure (Acute) Diverticulitis large intestine (Acute) Hypertensive cardiovascular disease or syndrome (Acute) Abdominal visceral abscess (Acute) Perforated sigmoid colon (Acute) Past Medical History Medical History HTN (hypertension) GERD (gastroesophageal reflux disease) Perforated diverticulum Manic depression Hyperlipidemia Asthma ETOH abuse HIV (human immunodeficiency virus infection) Family History Family history of problems with anesthesia: No Surgical History Surgical History Hx of hemorrhoidectomy History of incision and drainage History of creation of ostomy Hx of cholecystectomy Hx of colonoscopy History of Problems with Anesthesia: Yes (h/o difficult intubation (one incident)) Social History Social History Household Members: Unknown / Unable to assess Housing: Unknown / Unable to assess Are you a primary patient care representative to a significant other at home: No Do you presently have visiting nurse or other home services: No Unable to assess alcohol history related to: Unable to respond Alcohol intake: current Alcohol intake frequency: holidays/special occasions only Alcohol type: hard liquor Comment: pt refuse bed alarm Patient Tobacco Use Status: Never used Tobacco Use of substances other than those prescribed or required for medical reasons: Yes Substance Use Type: Marijuana Substance Use Type Other:: smokes marijuana Substance Use Frequency: Daily Have you been hit, kicked, punched, or otherwise hurt by someone within the past year? If so, by whom?: No Are you DNR?: No Advance Directives Information Provided: Yes (as above noted) Advance Directives on File: No Recently lost weight without trying: No Eating poorly because of decreased appetite: No Nutrition Risks: No Nutritional Risk Poor oral hygiene: No (lower partial) service: No Meds Allergies Allergy/AdvReac Type Severity Reaction Status Date / Time No Known Allergies Allergy Verified 05/20/23 10:26 Home Medications ?Medication ?Instructions ?Recorded ?Confirmed ?Last Taken ?Type amlodipine 10 mg tablet 10 mg PO QAM 12/07/22 07/04/23 07/04/23 08:30 History aripiprazole 15 mg tablet 15 mg PO QAM 12/07/22 07/04/23 05/07/23 07:30 History bictegravir 50 mg-emtricitabine 1 tab PO BEDTIME 12/07/22 07/04/23 12/06/22 History 200 mg-tenofovir alafenam 25 mg tablet (Biktarvy) bupropion HCl 150 mg tablet,12 hr 150 mg PO BID 12/07/22 07/04/23 05/07/23 07:30 History sustained-release famotidine 40 mg tablet 40 mg PO BEDTIME 12/07/22 07/04/23 05/07/23 07:30 History lisinopril 40 mg tablet 40 mg PO QAM 12/07/22 07/04/23 12/06/22 History lorazepam 0.5 mg tablet 0.5 mg PO BID 12/07/22 07/04/23 07/04/23 08:30 History mirtazapine 45 mg tablet 45 mg PO BEDTIME 12/07/22 07/04/23 12/06/22 History montelukast 10 mg tablet 10 mg PO QAM 12/07/22 07/04/23 07/04/23 08:30 History rosuvastatin 5 mg tablet 5 mg PO QAM 12/07/22 07/04/23 12/06/22 History Exam Height,Weight and Vital Signs: Height 5 ft 11 in Weight 108.3 kg Last Vital Signs Pulse 98 06/28/23 12:03 Resp 20 06/28/23 12:03 BP 133/85 06/28/23 12:03 Pulse Ox 98 06/28/23 12:03 O2 Del Method Room Air 06/28/23 12:03 Pertinent Lab Results Pertinent Lab Results: Lab Results 06/28/23 06/28/23 Range/Units 12:40 12:47 WBC 10.4 (4.8-10.8) X10*3/uL RBC 5.13 D (4.60-5.80) X10*6/uL Hgb 16.5 D (14.0-18.0) g/dl Hct 47.0 D (42.0-52.0) % MCV 91.6 (80.0-98.0) fL MCH 32.2 (27.0-33.0) pg MCHC 35.1 (31.0-36.0) g/dl RDW 13.2 (11.0-16.0) % Plt Count 304 D (160-400) X10*3/uL MPV 8.5 L (9.4-12.4) fL Absolute Nucleated RBC 0.000 (0.0-0.012) X10*3/uL Nucleated RBC % (auto) 0.0 (0.0-0.2) /100WBC Sodium 139 (135-145) mmol/L Potassium 3.7 (3.3-5.1) mmol/L Chloride 105 (96-108) mmol/L Carbon Dioxide 24 (22-29) mmol/L Anion Gap 14 (12-20) BUN 13 (9-16) mg/dL Creatinine 0.91 (0.5-1.4) mg/dL Estim Creat Clear Calc 109.4 Estimated GFR > 60 Random Glucose 108 (60-115) mg/dL Calcium 9.1 (8.4-10.2) mg/dL Blood Type A Positive Antibody Screen NEGATIVE Narrative Narrative: EKG 06/2023 Vent. Rate : 097 BPM Atrial Rate : 097 BPM P-R Int : 166 ms QRS Dur : 096 ms QT Int : 366 ms P-R-T Axes : 051 045 031 degrees QTc Int : 464 ms Normal sinus rhythm Normal ECG When compared with ECG of 18-DEC-2017 09:00, No significant change was found Airway Mallampati Class: III TM Dist: >3cm Neck ROM: Full Partial: Lower Heart: RRR Lungs: CTAB Assessment and Plan Assessment Anesthesia Assessment: Anesthesia Plan Discussed and PAT Visit Final Anesthetic Review Family History of Problems with Anesthesia: No History of Problems with Anesthesia: Yes (h/o difficult intubation (one incident)) Documented by User: Mercedes Mcclelland MD 07/04/23 11:00 [facility] Past Medical History Medical History HTN (hypertension) GERD (gastroesophageal reflux disease) Perforated diverticulum Manic depression Hyperlipidemia Asthma ETOH abuse HIV (human immunodeficiency virus infection) Surgical History Surgical History Hx of hemorrhoidectomy History of incision and drainage History of creation of ostomy Hx of cholecystectomy Hx of colonoscopy Social History Social History Household Members: Unknown / Unable to assess Housing: Unknown / Unable to assess Are you a primary patient care representative to a significant other at home: No Do you presently have visiting nurse or other home services: No Unable to assess alcohol history related to: Unable to respond Alcohol intake: current Alcohol intake frequency: holidays/special occasions only Alcohol type: hard liquor Comment: pt refuse bed alarm Patient Tobacco Use Status: Never used Tobacco Use of substances other than those prescribed or required for medical reasons: Yes Substance Use Type: Marijuana Substance Use Type Other:: smokes marijuana Substance Use Frequency: Daily Have you been hit, kicked, punched, or otherwise hurt by someone within the past year? If so, by whom?: No Are you DNR?: No Advance Directives Information Provided: Yes (as above noted) Advance Directives on File: No Recently lost weight without trying: No Eating poorly because of decreased appetite: No Nutrition Risks: No Nutritional Risk Poor oral hygiene: No (lower partial) service: No Meds Allergies Allergy/AdvReac Type Severity Reaction Status Date / Time No Known Allergies Allergy Verified 05/20/23 10:26 Home Medications ?Medication ?Instructions ?Recorded ?Confirmed ?Last Taken ?Type amlodipine 10 mg tablet 10 mg PO QAM 12/07/22 07/04/23 07/04/23 08:30 History aripiprazole 15 mg tablet 15 mg PO QAM 12/07/22 07/04/23 05/07/23 07:30 History bictegravir 50 mg-emtricitabine 1 tab PO BEDTIME 12/07/22 07/04/23 12/06/22 History 200 mg-tenofovir alafenam 25 mg tablet (Biktarvy) bupropion HCl 150 mg tablet,12 hr 150 mg PO BID 12/07/22 07/04/23 05/07/23 07:30 History sustained-release famotidine 40 mg tablet 40 mg PO BEDTIME 12/07/22 07/04/23 05/07/23 07:30 History lisinopril 40 mg tablet 40 mg PO QAM 12/07/22 07/04/23 12/06/22 History lorazepam 0.5 mg tablet 0.5 mg PO BID 12/07/22 07/04/23 07/04/23 08:30 History mirtazapine 45 mg tablet 45 mg PO BEDTIME 12/07/22 07/04/23 12/06/22 History montelukast 10 mg tablet 10 mg PO QAM 12/07/22 07/04/23 07/04/23 08:30 History rosuvastatin 5 mg tablet 5 mg PO QAM 12/07/22 07/04/23 12/06/22 History Assessment and Plan Assessment Anesthesia Assessment: Smoking Cess. Discussed (jai smoker ) and Chart Reviewed Final Anesthetic Review NPO: Yes ASA Class: III Final Preanesthetic Review: No Changes in Pt Med Stat, Meds/Allgs Chart Reviewed, Consent Obtained/Reviewed and Anes Risks/Benef Reviewed Patient Risk: Intermediate Procedure Risk: Intermediate Anesthetic Plan Anesthetic Plan: GA and Regional Block Disposition: Standard PACU
[2023-06-28 13:09] LABS: Hemoglobin 16.5 g/dl (14.0-18.0); Mean Corpuscular HGB Conc 35.1 g/dl (31.0-36.0); Mean Corpuscular Hemoglobin 32.2 pg (27.0-33.0); Mean Corpuscular Volume 91.6 fL (80.0-98.0); Mean Platelet Volume 8.5 fL (9.4-12.4); Platelet Count 304 X10*3/uL (160-400); Red Blood Count 5.13 X10*6/uL (4.60-5.80); Red Cell Distribution Width 13.2 % (11.0-16.0); White Blood Count 10.4 X10*3/uL (4.8-10.8)
[2023-06-28 14:02] LABS: Anion Gap 14 (12-20); Blood Urea Nitrogen 13 mg/dL (9-16); Calcium 9.1 mg/dL (8.4-10.2); Carbon Dioxide 24 mmol/L (22-29); Chloride 105 mmol/L (96-108); Creatinine Clr Calc Pharmacy 109.4; Estimated Glomerular Filt Rate > 60; Glucose Random 108 mg/dL (60-115); Potassium 3.7 mmol/L (3.3-5.1); Sodium 139 mmol/L (135-145)
--- NOTE | 2023-07-03 15:06 | MHC.SHP ---
Pre-Procedural Eval Section A - 24 Hr Update-Section A only Date of Service: 07/03/23 The patient is an INPATIENT: No Changes since office visit: No Cold of Flu in the past 2 weeks, No New Medical Problems, No Changes in Medication and No Patient answered all questions Section B - Complete if H&P > 30 days Chief Complaint: Colostomy status Allergies: Allergies Allergy/AdvReac Type Severity Reaction Status Date / Time No Known Allergies Allergy Verified 05/20/23 10:26 Plan I have reviewed the history and physical and performed a pertinent physical examination on my patient. No changes have occurred unless specified. Time Spent With Patient Time: Total time managing care of this patient today ____ minutes.
[2023-07-04] VITALS (8 sets, daily range): BP systolic 108–152; BP diastolic 66–96; PULSE 72–92; RESP 18–20; TEMP 36.1–37.2; O2SAT 93–98
[2023-07-04] MEDS: Lactated Ringers 1,000 ML 100 ML IVCONT (11:10)
--- NOTE | 2023-07-04 14:31 | P.OP_ITS ---
Operative Note Operative Note Date of Service: 07/04/23 Narrative: Preoperative diagnosis: [] Colostomy ;status post perforated sigmoid diverticulitis Postop diagnosis: [] Same Procedure [] exploratory laparotomy, extensive enterolysis, colostomy reversal, colorectal transanal anastomosis, flexible sigmoidoscopy Surgeon: [] Darin Automatic Mounter: [] Chidi Type of Anesthesia: [] General Indication for surgery: [] Patient is status post perforated sigmoid diverticulitis several months ago with end colostomy and Felipe's pouch. Intraoperative findings demonstrated very dense and extensive adhesions of small bowel and omentum to the abdominal wall, and pelvis necessitating extensive enterolysis just to gain entry into the abdominal cavity. Once this was accomplished, packs and retractors were placed in surgery performed uneventfully. Findings: [] Patient brought to the operating room, placed on operative table supine position, after adequate level of general anesthesia was induced, under sterile technique, Blue catheter was placed, and peritoneum and abdomen were prepped and draped in usual sterile fashion. Using a midline incision encompassing and excising the prior scar from the patient's previous surgery, this carried down through skin, subcu tissue, and down to the linea alba. Posterior fascia and peritoneum were entered sharply, and omental and small bowel dense adhesions to the abdominal wall were encountered. Meticulous and sharp enterolysis was performed and once the small bowel and omentum were freed, these were packed in the upper abdomen and packs and retractors placed to enhance exposure. Next the ostmy site was closed prior to abdominal wall prepping with 2-0 silk was approached using a transverse bi- elliptical incision and carried down through skin, subcutaneous tissue, down to the fascia. Ostomy site had been pre sutured preoperatively and this was freed up and returned into the abdominal cavity. The proximal colon was well vascularized and very mobile and reached the pelvis with no tension. Rectal stump was identified and was intimately adhered to the pelvic wall, pelvis, and bladder it was circumferentially dissected free. A pursestring suture device was placed on the the bowel just proximal to the ostomy site and uneventfully fired and end of ostomy transected. Sizers were then used and a 28 [place] anvil was placed and pursestring suture secured uneventfully. Trans anal placement of the EEA was then performed and exited through the anterior wall of the proximal rectal stump and connected to the proximal anvil with the appropriate bowel orientation. Stapler was closed and uneventfully fired and donuts obtained. Abdominal cavity was filled with saline and flexible sigmoidoscopy was then performed where the colon was insufflated with air, with no extravasation through the anastomosis and anastomosis was visualized from within and was within normal limits. Abdominal cavity and ostomy site were both irrigated and secured for hemostasis. Wounds were closed in the following manner; peritoneum of ostomy site was closed using running locking 0 Vicryl suture. Fascia of ostomy site was closed using running Maxon suture. Closure of midline incision was accomplished in a mass closure fashioned using looped 1. PDS. Skin of midline incision was closed using interrupted inverted dermal 3-0 Vicryl sutures followed by Steri-Strips and sterile dressings. Ostomy site was closed using widely spaced interrupted inverted dermal 3-0 Vicryl sutures followed by skin rl of Telfa and dressing. Following intubation, patient had a tap block. Sponge, needle, and instrument counts reported correct. Patient tolerated the procedure well and emerged from anesthesia stable condition. EBL minimal
[2023-07-04] MEDS: HYDROmorphone HCl 0.5 MG/0.5 ML SYRINGE IVPUSH ×2 (15:50→18:39)
[2023-07-04] MEDS: Acetaminophen 1,000 MG/100 ML PIGGYBACK 400 MG IV ×2 (15:51→20:06)
[2023-07-04] MEDS: Lactated Ringers 1,000 ML 125 ML IVCONT ×2 (15:51→23:43)
[2023-07-04] MEDS: ARIPiprazole 15 MG TABLET PO (16:02)
--- NOTE | 2023-07-04 16:24 | PHA.MEDREC ---
Pharmacy Consult ? Medication Reconciliation Pharmacy has reviewed the medication reconciliation completed by nursing. Kim Oquendo, FarheenD
[2023-07-04] MEDS: Bictegrav/Emtricit/Tenofov Ala TABLET 1 TAB PO (20:07)
[2023-07-04] MEDS: oxyCODONE HCl Immed Release 5 MG TABLET 10 MG PO ×2 (20:07→23:46)
[2023-07-04] MEDS: Famotidine 20 MG TABLET 40 MG PO (20:08)
[2023-07-04] MEDS: LORazepam 0.5 MG TABLET PO (20:08)
[2023-07-04] MEDS: Mirtazapine 15 MG TABLET 45 MG PO (20:08)
[2023-07-05 00:10] VITALS: BP 113/70; PULSE 68; RESP 16; TEMP 36; O2SAT 95
[2023-07-05] MEDS: Acetaminophen 1,000 MG/100 ML PIGGYBACK 400 MG IV ×4 (02:44→21:23)
[2023-07-05] MEDS: oxyCODONE HCl Immed Release 5 MG TABLET 10 MG PO (03:56)
[2023-07-05 04:00] VITALS: BP 122/70; PULSE 70; RESP 16; TEMP 37; O2SAT 96
[2023-07-05] MEDS: HYDROmorphone HCl 0.5 MG/0.5 ML SYRINGE IVPUSH ×6 (05:02→21:24)
[2023-07-05 06:59] LABS: MANUAL DIFF FLAG NO
[2023-07-05 07:14] VITALS: BP 134/77; PULSE 84; RESP 20; TEMP 36.7; O2SAT 96
[2023-07-05 07:18] VITALS: BP 120/71; PULSE 84; RESP 20; TEMP 36.7; O2SAT 96
[2023-07-05 07:23] LABS: Basophils Percent Auto 0.2 % (0-2); Hematocrit 44.9 % (42.0-52.0); Hemoglobin 15.8 g/dl (14.0-18.0); Imm Gran Abs Auto 0.05 X10*3/uL (0.00-0.03); Imm Gran Pct Auto 0.5 % (0.0-0.4); Lymphocytes Percent Auto 9.2 % (20-40); Mean Corpuscular HGB Conc 35.2 g/dl (31.0-36.0); Mean Corpuscular Hemoglobin 32.9 pg (27.0-33.0); Mean Corpuscular Volume 93.5 fL (80.0-98.0); Mean Platelet Volume 9.2 fL (9.4-12.4); Monocytes Absolute Auto 0.7 X10*3/uL (0.1-1.2); Monocytes Percent Auto 6.9 % (2-11); Neutrophils Absolute Auto 8.9 x10*3/uL (2.0-8.3); Neutrophils Percent Auto 83.2 % (45-73); Platelet Count 243 X10*3/uL (160-400); Red Cell Distribution Width 13.2 % (11.0-16.0); White Blood Count 10.7 X10*3/uL (4.8-10.8)
[2023-07-05 07:30] LABS: Anion Gap 14 (12-20); Blood Urea Nitrogen 8 mg/dL (9-16); Calcium 9.2 mg/dL (8.4-10.2); Carbon Dioxide 25 mmol/L (22-29); Chloride 104 mmol/L (96-108); Creatinine Clr Calc Pharmacy 121.4; Estimated Glomerular Filt Rate > 60; Glucose Random 118 mg/dL (60-115); Potassium 3.8 mmol/L (3.3-5.1); Sodium 139 mmol/L (135-145)
--- NOTE | 2023-07-05 07:39 | PM.PNGS ---
Subjective Subjective Date of Service: 07/05/23 <Sandra Murillo PA-C - Last Filed: 07/05/23 07:43> 07/05/23 <Jose G Webster MD - Last Filed: 07/05/23 08:05> Interval history: Feels overall well. Incisional pain 11/01, improves with analgesics. Was just OOB to bathroom and passed flatus and small bloody BM. Tolerating clear liquids. <Sandra Murillo PA-C - Last Filed: 07/05/23 07:43> Physical Exam Vital Signs: Vital Signs: Last Vital Signs Temp 98.1 F 07/05/23 07:18 Pulse 84 07/05/23 07:18 Resp 20 07/05/23 07:18 BP 120/71 07/05/23 07:18 Pulse Ox 96 07/05/23 07:18 O2 Del Method Room Air 07/05/23 07:14 O2 Flow Rate 2 07/04/23 15:05 BMI result Body Mass Index 33.3 <Sandra Murillo PA-C - Last Filed: 07/05/23 07:43> Const: General: comfortable, no acute distress and alert <DEEPTHI Lofton Last Filed: 07/05/23 07:43> Orientation/consciousness: patient oriented x3 <DEEPTHI Lofton Last Filed: 07/05/23 07:43> Resp: Effort & Inspection: normal respiratory effort <Sandra Murillo PA-C - Last Filed: 07/05/23 07:43> GI: Inspection: No distended and Yes incision (midline clean, old colostomy site with wound rl in place ) <Sandra Murillo PA-C - Last Filed: 07/05/23 07:43> Palpation (GI): Soft to palpation, Tenderness to palpation present (GI) (mild incisional), no guarding and not rigid <DEEPTHI Lofton Last Filed: 07/05/23 07:43> Skin: General skin exam: no rashes or lesions noted <DEEPTHI Lofton Last Filed: 07/05/23 07:43> Neuro: General: patient oriented x3 and moves all extremities <Sandra Murillo PA-C - Last Filed: 07/05/23 07:43> Objective Data Active Medications Al Hydroxide/Mg Hydroxide (Magnesium Hydrox/Alum Hydrox 30 Ml Oral.Susp) 30 ml PO Q4H PRN PRN Reason: Heartburn/Nausea Amlodipine Besylate (Amlodipine Besylate 10 Mg Tablet) 10 mg PO DAILY ELSY; Protocol Last Admin: 07/04/23 15:53 Dose: Not Given Documented By: TERA Non-Admin Reason: already took this AM Aripiprazole (Aripiprazole 15 Mg Tablet) 15 mg PO DAILY ELSY Last Admin: 07/04/23 16:02 Dose: 15 mg Documented By: TERA Atorvastatin Calcium (Atorvastatin Calcium 20 Mg Tablet) 20 mg PO DAILY [facility] Bictegravir/Emtricitabine/Tenofovir (Bictegrav/Emtricit/Tenofov Ala Tablet) 1 tab PO BEDTIME ELSY Last Admin: 07/04/23 20:07 Dose: 1 tab Documented By: JUSTEN Bupropion HCl (Bupropion Hcl Xl 300 Mg Tab.Er.24h) 300 mg PO DAILY ELSY Enoxaparin Sodium (Enoxaparin Sodium 40 Mg/0.4 Ml Syringe) 40 mg SUBCUT Q24H ELSY Famotidine (Famotidine 20 Mg Tablet) 40 mg PO BEDTIME ELSY Last Admin: 07/04/23 20:08 Dose: 40 mg Documented By: JUSTEN Hydromorphone HCl (Hydromorphone Hcl 0.5 Mg/0.5 Ml Syringe) 0.5 mg IVPUSH Q3H PRN; Protocol PRN Reason: Pain, Severe (Pain Scale 7-10) Last Admin: 07/05/23 05:02 Dose: 0.5 mg Documented By: JUSTEN Acetaminophen (Ofirmev) 1,000 mg in 100 mls @ 400 mls/hr IV Q6H ELSY Last Infusion: 07/05/23 03:00 Dose: Infused Documented By: JUSTEN Lactated Ringer's (Lr) 1,000 mls @ 80 mls/hr IVCONT .[id number] ELSY Last Admin: 07/04/23 23:43 Dose: 125 mls/hr Documented By: JUSTEN Lorazepam (Lorazepam 0.5 Mg Tablet) 0.5 mg PO BID [facility] Last Admin: 07/04/23 20:08 Dose: 0.5 mg Documented By: JUSTEN Mirtazapine (Mirtazapine 15 Mg Tablet) 45 mg PO BEDTIME [facility] Last Admin: 07/04/23 20:08 Dose: 45 mg Documented By: JUSTEN Montelukast Sodium (Montelukast Sodium 10 Mg Tablet) 10 mg PO DAILY [facility] Last Admin: 07/04/23 17:04 Dose: Not Given Documented By: TERA Non-Admin Reason: pt took this AM Ondansetron HCl (Ondansetron Hcl 4 Mg/2 Ml Vial) 4 mg IVPUSH Q8H PRN PRN Reason: Nausea and Vomiting Oxycodone HCl (Oxycodone Hcl Immed Release 5 Mg Tablet) 10 mg PO Q4H PRN PRN Reason: Pain, Moderate(Pain Scale 4-6) Last Admin: 07/05/23 03:56 Dose: 10 mg Documented By: JUSTEN Sodium Chloride (0.9 % Sodium Chloride Flush 3 Ml Syringe) 3 ml IVFLUSH QSHIFT [facility] Last Admin: 07/05/23 07:24 Dose: Not Given Documented By: TERESA Non-Admin Reason: IV Running <Sandra Murillo PA-C - Last Filed: 07/05/23 07:43> Labs CBC & Chem 7: 07/05/23 05:40 07/05/23 05:40 <Sandra Murillo PA-C - Last Filed: 07/05/23 07:43> Labs: Laboratory Results - last 24 hr 07/05/23 05:40 MCV 93.5 MCH 32.9 MCHC 35.2 RDW 13.2 Plt Count 243 MPV 9.2 L Immature Gran % (Auto) 0.5 H Neut % (Auto) 83.2 H Lymph % (Auto) 9.2 L [place] % (Auto) 6.9 Eos % (Auto) 0.0 Baso % (Auto) 0.2 Lymph # (Auto) 1.0 L [place] # (Auto) 0.7 Eos # (Auto) 0.0 Baso # (Auto) 0.0 Abs Immat Gran (auto) 0.05 H Absolute Neuts (auto) 8.9 H Absolute Nucleated RBC 0.000 Nucleated RBC % (auto) 0.0 Anion Gap 14 Estim Creat Clear Calc 121.4 Estimated GFR > 60 Random Glucose 118 H Calcium 9.2 <Sandra Murillo PA-C - Last Filed: 07/05/23 07:43> Procedures Date of Service Date of Service: 07/05/23 <Sandra Murillo PA-C - Last Filed: 07/05/23 07:43> 07/05/23 <Jose G Webster MD - Last Filed: 07/05/23 08:05> Progress Note: A&P Assessment and plan (1) History of colostomy reversal: Status: Acute <DEEPTHI Lofton Last Filed: 07/05/23 07:43> (2) Status post Felipe procedure: Status: Acute <Sandra Murillo PA-C - Last Filed: 07/05/23 07:43> Assessment and Plan: POD #1 s/p exploratory laparotomy, extensive enterolysis, colostomy reversal, colorectal transanal anastomosis, flexible sigmoidoscopy. Doing well post op, some evidence of return of GI function. VSS. Abd exam benign with appropriate post op tenderness, clean incisions, wound rl in place in old colostomy site. AM labs pending. UOP good. Dc villar. Dec IVF. Cont clear liquids for now. Encouraged OOB/ambulation and IS use. Pain control. <Sandra Murillo PA-C - Last Filed: 07/05/23 07:43> Time Spent With Patient Time: Total time managing care of this patient today ____ minutes. <Sandra Murillo PA-C - Last Filed: 07/05/23 07:43> Quality Stroke Does the patient have a stroke diagnosis?: No <Jose G Webster MD - Last Filed: 07/05/23 08:05> VTE Prior VTE?: No <Jose G Webster MD - Last Filed: 07/05/23 08:05> VTE Risk Level:: Surgical - low <DEEPTHI Lofton Last Filed: 07/05/23 07:43> VTE Device Contraindication: N/A - Device Ordered <Sandra Murillo PA-C - Last Filed: 07/05/23 07:43> VTE Drug Contraindication: Treatment Not Indicated <Sandra Murillo PA-C - Last Filed: 07/05/23 07:43>
[2023-07-05] MEDS: Lactated Ringers 1,000 ML 80 ML IVCONT ×2 (07:41→19:43)
[2023-07-05] MEDS: Atorvastatin Calcium 20 MG TABLET PO (07:42)
[2023-07-05] MEDS: Montelukast Sodium 10 MG TABLET PO (07:42)
[2023-07-05] MEDS: LORazepam 0.5 MG TABLET PO ×2 (07:42→19:44)
[2023-07-05] MEDS: ARIPiprazole 15 MG TABLET PO (07:43)
[2023-07-05] MEDS: buPROPion HCl XL 300 MG TAB.ER.24H PO (07:43)
[2023-07-05] MEDS: amLODIPine Besylate 10 MG TABLET PO (07:43)
[2023-07-05] MEDS: Enoxaparin Sodium 40 MG/0.4 ML SYRINGE SUBCUT (10:10)
--- NOTE | 2023-07-05 11:34 | MHC.CM.PN ---
pt lives alone reports having a ride home and being independent no expected to need services when dcd
--- NOTE | 2023-07-05 11:37 | PC.NURSE ---
Patient refuses KIKI marcelino notified,encouraged ambulation,risks explained to patient
--- NOTE | 2023-07-05 12:44 | PC.NURSE ---
Patient unable to use urinal or hat for urine measurement,voiding without difficulty,bladder scanned for 0 ml by SH[employer] FILLER BUNCH MACHINE OPERATOR Ying
[2023-07-05 15:22] VITALS: BP 121/72; PULSE 82; RESP 16; TEMP 36.8; O2SAT 95
--- NOTE | 2023-07-05 17:33 | HO.POSTANES ---
Post Anesthesia Evaluation Post Anesthesia Evaluation Date of Service: 07/05/23 Vital Signs: Vital Signs Temp Pulse Resp BP Pulse Ox O2 Del Method 07/05/23 15:22 98.2 F 82 16 121/72 95 Room Air, Ambu-Bag 07/05/23 07:18 98.1 F 84 20 120/71 96 07/05/23 07:14 98.0 F 84 20 134/77 96 Room Air Anesthesia: General Endotracheal-GETA Mental Status: Awake Pain Control: Satisfactory Nausea/Vomiting: None Hydration: Adequate Anesthesia-Related Issues: No Anes. Related Issues
[2023-07-05 19:05] VITALS: BP 120/69; PULSE 81; RESP 18; TEMP 36.5; O2SAT 94
[2023-07-05] MEDS: Bictegrav/Emtricit/Tenofov Ala TABLET 1 TAB PO (19:44)
[2023-07-05] MEDS: Famotidine 20 MG TABLET 40 MG PO (19:44)
[2023-07-05] MEDS: Mirtazapine 15 MG TABLET 45 MG PO (19:44)
[2023-07-06] MEDS: HYDROmorphone HCl 0.5 MG/0.5 ML SYRINGE IVPUSH ×7 (00:45→21:13)
[2023-07-06 00:53] VITALS: BP 132/83; PULSE 77; RESP 18
[2023-07-06 01:10] VITALS: RESP 16
[2023-07-06 03:04] VITALS: BP 138/87; PULSE 84; RESP 18; TEMP 36.3; O2SAT 96
[2023-07-06] MEDS: Acetaminophen 1,000 MG/100 ML PIGGYBACK 400 MG IV ×3 (03:29→16:12)
--- NOTE | 2023-07-06 03:40 | PC.NURSE ---
Patient states he prefers IV pain med over oxycodone due to stomach upset and inability to take with food due to clear liquid diet.
[2023-07-06 07:54] VITALS: BP 141/83; PULSE 92; RESP 17; TEMP 36.9; O2SAT 94
[2023-07-06] MEDS: amLODIPine Besylate 10 MG TABLET PO (08:07)
[2023-07-06] MEDS: ARIPiprazole 15 MG TABLET PO (08:07)
[2023-07-06] MEDS: LORazepam 0.5 MG TABLET PO ×2 (08:07→21:12)
[2023-07-06] MEDS: Montelukast Sodium 10 MG TABLET PO (08:07)
[2023-07-06] MEDS: Atorvastatin Calcium 20 MG TABLET PO (08:07)
[2023-07-06] MEDS: buPROPion HCl XL 300 MG TAB.ER.24H PO (08:07)
[2023-07-06] MEDS: Lactated Ringers 1,000 ML 80 ML IVCONT ×2 (08:50→22:00)
[2023-07-06] MEDS: Simethicone 80 MG TAB.CHEW PO ×3 (09:08→19:59)
[2023-07-06] MEDS: Enoxaparin Sodium 40 MG/0.4 ML SYRINGE SUBCUT (11:12)
--- NOTE | 2023-07-06 15:10 | P.PNGS_ITS ---
Subjective Subjective Date of Service: 07/06/23 Interval history: Patient is doing very well. Passing some flatus and loose stool-.- - - -K-c-z-s-d-a-t-i-n-g- -h-i-s- -d-i-e-t- -w-h-i-c-h- -h-a-s- -b-e-e-n- -t-e-e-a-n-c-e-d-.- - - -D-o-i-n-g- -h-i-s- -f-j-o-g-s-y-i-v-e- -n-k-b-g-m-c-e-t-r-y-,- -a-n-d- bleeding. -K-s-o-e-r-a-t-e- -z-y-k-a-w-r-o-n-a-l- -y-v-n-v-y-z-f-o-r-t- Physical Exam 2 Vital Signs: Vital Signs: Last Vital Signs Temp 98.5 F 07/06/23 07:54 Pulse 92 07/06/23 07:54 Resp 17 07/06/23 07:54 BP 141/83 H 07/06/23 07:54 Pulse Ox 94 07/06/23 07:54 O2 Del Method Room Air 07/06/23 07:54 O2 Flow Rate 2 07/04/23 15:05 BMI result Body Mass Index 33.3 GI: Other: Abdomen mildly distended. Incision clean dry and intact. Tarik removed from ostomy site and dressing applied. Objective Data Active Medications Al Hydroxide/Mg Hydroxide (Magnesium Hydrox/Alum Hydrox 30 Ml Oral.Susp) 30 ml PO Q4H PRN PRN Reason: Heartburn/Nausea Amlodipine Besylate (Amlodipine Besylate 10 Mg Tablet) 10 mg PO DAILY [facility]; Protocol Last Admin: 07/06/23 08:07 Dose: 10 mg Documented By: KENNY Aripiprazole (Aripiprazole 15 Mg Tablet) 15 mg PO DAILY [facility] Last Admin: 07/06/23 08:07 Dose: 15 mg Documented By: KENNY Atorvastatin Calcium (Atorvastatin Calcium 20 Mg Tablet) 20 mg PO DAILY [facility] Last Admin: 07/06/23 08:07 Dose: 20 mg Documented By: KENNY Bictegravir/Emtricitabine/Tenofovir (Bictegrav/Emtricit/Tenofov Ala Tablet) 1 tab PO BEDTIME [facility] Last Admin: 07/05/23 19:44 Dose: 1 tab Documented By: YOLANDA Bupropion HCl (Bupropion Hcl Xl 300 Mg Tab.Er.24h) 300 mg PO DAILY [facility] Last Admin: 07/06/23 08:07 Dose: 300 mg Documented By: KENNY Enoxaparin Sodium (Enoxaparin Sodium 40 Mg/0.4 Ml Syringe) 40 mg SUBCUT Q24H [facility] Last Admin: 07/06/23 11:12 Dose: 40 mg Documented By: KENNY Famotidine (Famotidine 20 Mg Tablet) 40 mg PO BEDTIME [facility] Last Admin: 07/05/23 19:44 Dose: 40 mg Documented By: YOLANDA Hydromorphone HCl (Hydromorphone Hcl 0.5 Mg/0.5 Ml Syringe) 0.5 mg IVPUSH Q3H PRN; Protocol PRN Reason: Pain, Severe (Pain Scale 7-10) Last Admin: 07/06/23 14:27 Dose: 0.5 mg Documented By: KENNY Acetaminophen (Ofirmev) 1,000 mg in 100 mls @ 400 mls/hr IV Q6H [facility] Last Infusion: 07/06/23 08:47 Dose: Infused Documented By: KENNY Lactated Ringer's (Lr) 1,000 mls @ 80 mls/hr IVCONT .[id number] [facility] Last Admin: 07/06/23 08:50 Dose: 80 mls/hr Documented By: KENNY Lorazepam (Lorazepam 0.5 Mg Tablet) 0.5 mg PO BID [facility] Last Admin: 07/06/23 08:07 Dose: 0.5 mg Documented By: KENNY Mirtazapine (Mirtazapine 15 Mg Tablet) 45 mg PO BEDTIME [facility] Last Admin: 07/05/23 19:44 Dose: 45 mg Documented By: YOLANDA Montelukast Sodium (Montelukast Sodium 10 Mg Tablet) 10 mg PO DAILY [facility] Last Admin: 07/06/23 08:07 Dose: 10 mg Documented By: KENNY Ondansetron HCl (Ondansetron Hcl 4 Mg/2 Ml Vial) 4 mg IVPUSH Q8H PRN PRN Reason: Nausea and Vomiting Oxycodone HCl (Oxycodone Hcl Immed Release 5 Mg Tablet) 10 mg PO Q4H PRN PRN Reason: Pain, Moderate(Pain Scale 4-6) Last Admin: 07/05/23 03:56 Dose: 10 mg Documented By: JUSTEN Simethicone (Simethicone 80 Mg Tab.Chew) 80 mg PO QIDWMHS PRN PRN Reason: Gas Last Admin: 07/06/23 12:15 Dose: 80 mg Documented By: KENNY Sodium Chloride (0.9 % Sodium Chloride Flush 3 Ml Syringe) 3 ml IVFLUSH QSHIFT [facility] Last Admin: 07/06/23 09:05 Dose: Not Given Documented By: KENNY Non-Admin Reason: IV Running Labs 07/05/23 05:40 07/05/23 05:40 Procedures Date of Service Date of Service: 07/06/23 Progress Note: A&P Assessment and plan (1) History of colostomy reversal: Status: Acute Plan Continue current plan of diet as tolerated, incentive spirometry, ambulate, all questions answered. Time Spent With Patient Time: Total time managing care of this patient today ____ minutes. Quality Stroke Does the patient have a stroke diagnosis?: No VTE Prior VTE?: No VTE Risk Level:: Surgical - low VTE Device Contraindication: N/A - Device Ordered VTE Drug Contraindication: Treatment Not Indicated
[2023-07-06 15:46] VITALS: BP 130/76; PULSE 91; RESP 20; TEMP 36.8; O2SAT 97
[2023-07-06 19:50] VITALS: BP 135/83; PULSE 98; RESP 20; TEMP 37.2; O2SAT 94
[2023-07-06] MEDS: Bictegrav/Emtricit/Tenofov Ala TABLET 1 TAB PO (21:12)
[2023-07-06] MEDS: Mirtazapine 15 MG TABLET 45 MG PO (21:12)
[2023-07-06] MEDS: Famotidine 20 MG TABLET 40 MG PO (21:12)
[2023-07-06] MEDS: 0.9 % Sodium Chloride Flush 3 ML SYRINGE IVFLUSH (21:12)
[2023-07-07 03:33] VITALS: BP 151/83; PULSE 100; RESP 18; TEMP 38; O2SAT 94
[2023-07-07] MEDS: oxyCODONE HCl Immed Release 5 MG TABLET 10 MG PO ×3 (03:58→12:28)
[2023-07-07] MEDS: Acetaminophen 325 MG TABLET 650 MG PO (04:02)
[2023-07-07 04:58] VITALS: TEMP 37.7
[2023-07-07 05:02] VITALS: TEMP 37.7
--- NOTE | 2023-07-07 05:06 | PC.NURSE ---
throughout the night pt frequently walk to the BR, afew times c/o pain, provided pain meds by eMar. [address] Webster notified. received telephone order Tylenol 650 mg. given by this nurse. provided ice pack periodically improved to 99.8 F. will continue to monitor.
[2023-07-07 06:08] VITALS: BP 136/85; PULSE 91; RESP 18; TEMP 36.7; O2SAT 96
[2023-07-07 06:53] VITALS: BP 145/92; PULSE 90; RESP 16; TEMP 36.2; O2SAT 95
[2023-07-07] MEDS: 0.9 % Sodium Chloride Flush 3 ML SYRINGE IVFLUSH (08:20)
[2023-07-07] MEDS: Atorvastatin Calcium 20 MG TABLET PO (08:20)
[2023-07-07] MEDS: ARIPiprazole 15 MG TABLET PO (08:21)
[2023-07-07] MEDS: LORazepam 0.5 MG TABLET PO (08:21)
[2023-07-07] MEDS: Montelukast Sodium 10 MG TABLET PO (08:21)
[2023-07-07] MEDS: amLODIPine Besylate 10 MG TABLET PO (08:21)
[2023-07-07] MEDS: buPROPion HCl XL 300 MG TAB.ER.24H PO (08:21)
--- NOTE | 2023-07-07 14:58 | P.PNGS_ITS ---
Subjective Subjective Date of Service: 07/07/23 Interval history: Patient is doing well. He is tolerating his diet. Having regular bowel habits. He is ambulating. He wishes to be discharged home. Physical Exam 2 Vital Signs: Vital Signs: Last Vital Signs Temp 97.2 F 07/07/23 06:53 Pulse 90 07/07/23 06:53 Resp 16 07/07/23 06:53 BP 145/92 H 07/07/23 06:53 Pulse Ox 95 07/07/23 06:53 O2 Del Method Room Air 07/07/23 06:53 O2 Flow Rate 2 07/04/23 15:05 BMI result Body Mass Index 33.3 GI: Other: Abdomen is soft. Mild distention. Midline wound well healed. Ostomy site serous drainage. Objective Data Active Medications Acetaminophen (Acetaminophen 325 Mg Tablet) 650 mg PO Q6H PRN PRN Reason: Fever Last Admin: 07/07/23 04:02 Dose: 650 mg Documented By: YEN Al Hydroxide/Mg Hydroxide (Magnesium Hydrox/Alum Hydrox 30 Ml Oral.Susp) 30 ml PO Q4H PRN PRN Reason: Heartburn/Nausea Amlodipine Besylate (Amlodipine Besylate 10 Mg Tablet) 10 mg PO DAILY [facility]; Protocol Last Admin: 07/07/23 08:21 Dose: 10 mg Documented By: KALANI Aripiprazole (Aripiprazole 15 Mg Tablet) 15 mg PO DAILY [facility] Last Admin: 07/07/23 08:21 Dose: 15 mg Documented By: KALANI Atorvastatin Calcium (Atorvastatin Calcium 20 Mg Tablet) 20 mg PO DAILY [facility] Last Admin: 07/07/23 08:20 Dose: 20 mg Documented By: KALANI Bictegravir/Emtricitabine/Tenofovir (Bictegrav/Emtricit/Tenofov Ala Tablet) 1 tab PO BEDTIME [facility] Last Admin: 07/06/23 21:12 Dose: 1 tab Documented By: YEN Bupropion HCl (Bupropion Hcl Xl 300 Mg Tab.Er.24h) 300 mg PO DAILY [facility] Last Admin: 07/07/23 08:21 Dose: 300 mg Documented By: KALANI Enoxaparin Sodium (Enoxaparin Sodium 40 Mg/0.4 Ml Syringe) 40 mg SUBCUT Q24H [facility] Last Admin: 07/07/23 11:00 Dose: Not Given Documented By: KALANI Non-Admin Reason: Patient Refused Famotidine (Famotidine 20 Mg Tablet) 40 mg PO BEDTIME [facility] Last Admin: 07/06/23 21:12 Dose: 40 mg Documented By: YEN Hydromorphone HCl (Hydromorphone Hcl 0.5 Mg/0.5 Ml Syringe) 0.5 mg IVPUSH Q3H PRN; Protocol PRN Reason: Pain, Severe (Pain Scale 7-10) Last Admin: 07/06/23 21:13 Dose: 0.5 mg Documented By: YEN Lorazepam (Lorazepam 0.5 Mg Tablet) 0.5 mg PO BID [facility] Last Admin: 07/07/23 08:21 Dose: 0.5 mg Documented By: KALANI Mirtazapine (Mirtazapine 15 Mg Tablet) 45 mg PO BEDTIME [facility] Last Admin: 07/06/23 21:12 Dose: 45 mg Documented By: YEN Montelukast Sodium (Montelukast Sodium 10 Mg Tablet) 10 mg PO DAILY [facility] Last Admin: 07/07/23 08:21 Dose: 10 mg Documented By: KALANI Ondansetron HCl (Ondansetron Hcl 4 Mg/2 Ml Vial) 4 mg IVPUSH Q8H PRN PRN Reason: Nausea and Vomiting Oxycodone HCl (Oxycodone Hcl Immed Release 5 Mg Tablet) 10 mg PO Q4H PRN PRN Reason: Pain, Moderate(Pain Scale 4-6) Last Admin: 07/07/23 12:28 Dose: 10 mg Documented By: KALANI Simethicone (Simethicone 80 Mg Tab.Chew) 80 mg PO QIDWMHS PRN PRN Reason: Gas Last Admin: 07/06/23 19:59 Dose: 80 mg Documented By: YEN Sodium Chloride (0.9 % Sodium Chloride Flush 3 Ml Syringe) 3 ml IVFLUSH QSHIFT [facility] Last Admin: 07/07/23 08:20 Dose: 3 ml Documented By: KALANI Labs 07/05/23 05:40 07/05/23 05:40 Procedures Date of Service Date of Service: 04/14/24 Progress Note: A&P Assessment and plan (1) History of colostomy reversal: Status: Acute Plan Current plan is discharge patient home with discharge instructions provided. All questions answered. Patient was evaluated with mother present. Time Spent With Patient Time: Total time managing care of this patient today ____ minutes. Quality Stroke Does the patient have a stroke diagnosis?: No VTE Prior VTE?: No VTE Risk Level:: Surgical - low VTE Device Contraindication: N/A - Device Ordered VTE Drug Contraindication: Treatment Not Indicated
--- NOTE | 2023-07-07 16:00 | MHC.CM.PN ---
PT WILL DC HOME TODAY WITH NO SERVICES VIA SELF-ARRANGED TRANSPORT
--- NOTE | 2023-07-09 09:16 | PM.DS ---
DS: Providers Provider Date of Service: 07/07/23 Date of admission: 07/04/23 11:41 Primary care physician: Apple Neri DO Attending physician on admission: Jose G Webster Attending physician on discharge: Jose G Webster DS: Diagnosis Discharge Diagnosis (1) History of colostomy reversal: Status: Acute DS: Summary Hospital Course Hospital Course: HPI AT ADMISSION: Patient has history of cisco procedure for perforated diverticulitis. He presents to the office status post colonoscopy. According to the patient, there were benign polyps but no other issues or complaints. Patient is very anxious to have his colostomy reversed. Arrangements were made for the procedure. Patient will receive a full bowel prep as well as rectal stump enemas day prior. HOSPITAL COURSE: On 07/04/23, an exploratory laparotomy, extensive enterolysis, colostomy reversal, colorectal transanal anastomosis, flexible sigmoidoscopy was performed by Dr. Webster without complication. The patient tolerated the procedure well and was admitted post operatively for observation. He had an uncomplicated recovery course. On POD #1, he was doing well overall with good pain control. He was passing a small amount of flatus. His villar was discontinued. He was ambulated. On POD #2, he began to pass continuous flatus and move his bowels and his diet was advanced to solids. His incisions were clean appearing and wound rl were removed from this old colostomy site. His activity was increased. On POD #3, he was tolerating a solid diet. He continued to have good GI function. His pain was adequately controlled on PO analgesics. His abdomen remained benign. He felt ready for discharge to home. He was discharged on 07/07/23 in stable condition. Status at Discharge Functional status at discharge: independent ambulation Overall status at discharge: patient is progressing back to baseline Time Attestation Discharge Coordination Time (in mins): 30 Quality: Safe Use of Opioids Does Pt have an Active Cancer Diagnosis on the Problem List?: No Quality: Stroke Does the patient have a stroke diagnosis?: No Physical Exam Vital Signs: Vital Signs: Last Vital Signs Temp 97.2 F 07/07/23 06:53 Pulse 90 07/07/23 06:53 Resp 16 07/07/23 06:53 BP 145/92 H 07/07/23 06:53 Pulse Ox 95 07/07/23 06:53 O2 Del Method Room Air 07/07/23 06:53 O2 Flow Rate 2 07/04/23 15:05 BMI result Body Mass Index 33.3 Const: General: comfortable, no acute distress and alert GI: Other: incisions clean, some serous drainage from old colostomy site incision Palpation (GI): Soft to palpation DS: Data Data Completed and Pending Completed studies during hospitalization [Text1]: Procedures Bypass Sigmoid Colon to Cutaneous, Open Approach (12/07/22) Excision of Sigmoid Colon, Open Approach (12/07/22) Pending studies at discharge: Pending at discharge 07/04/23 14:06 Surgical [PTH] Routine Discharge Plan Discharge Anticipated Discharge Date/Time: 07/07/23 11:02 Patient Disposition: Home, Self-Care Discharge Diagnosis: s/p colostomy reversal Referrals: Apple Neri DO [Primary Care Provider] - 1 Week Jose G Webster MD [Physician] - 1 Week Discharge Medications: New oxycodone 5 mg tablet 5 mg PO Q4H PRN (Reason: pain (scale score 7-10)) Qty: 24 0RF Rx Instructions: Partial Fill upon patient request. Continued bupropion HCl 150 mg tablet sustained-release 12 hr 150 mg PO BID famotidine 40 mg tablet 40 mg PO BEDTIME lorazepam 0.5 mg tablet 0.5 mg PO BID amlodipine 10 mg tablet 10 mg PO QAM mirtazapine 45 mg tablet 45 mg PO BEDTIME montelukast 10 mg tablet 10 mg PO QAM lisinopril 40 mg tablet 40 mg PO QAM aripiprazole 15 mg tablet 15 mg PO QAM rosuvastatin 5 mg tablet 5 mg PO QAM Biktarvy 50-200-25 mg tablet 1 tab PO BEDTIME Discharge Orders: Discharge Order (Routine); Ordered 07/07/23 Ordered By: Jose G Webster Diet: low residue Activity on Discharge: No heavy lifting Stand Alone Forms: Patient Portal Discharge page Print Language: Scottish Activity Restrictions/Additional Instructions: Apply an ice pack for short intervals (20 minutes on, followed by at least 20 minutes off). Ok to shower. Keep dressing on old colostomy site while it remains open and draining. You have steri strips (small white cloth strips) covering your incision- these will fall off ~1 week. Follow up in office with Dr. Webster in 1 week. ([phone]) No heavy lifting (>10lbs) or strenuous activity! Call Your Doctor If: -Your temperature exceeds 101.5? F -You experience excessive pain or swelling -You have an unexpected reaction to medication -You have excessive bleeding -You experience continued vomiting/nausea -Your incision begins to separate -Your incision shows signs of infection such as increased redness, swelling, excessive pain, drainage (light blood or clear fluid is normal) or heat Care Plan Goals: Return to baseline health and resume normal activities following recovery period. Health Concerns: hx of perforated diverticulitis, colostomy in place Plan of Treatment: s/p colostomy reversal F/u in office in 1 week. Assessment: Doing well post op. Discharge Date/Time: 07/07/23 15:16
== END 2023-07-07 15:16 | disposition home or self-care (01) | DRG 337 ==
LOC: HO.SSSA 11:47 → HO.S3 15:04
PROVIDERS: Nurse Practitioner; Physician Assistant Surgical; Admitting Provider Surgery; PCP Family Medicine; Visit Provider Surgery
PROC: 0DNW0ZZ Release Peritoneum, Open Approach (ICD-10-PCS; CPT 44620; principal; 2023-07-04 12:30)
DX: Z43.3 Encounter for attention to colostomy (principal); G89.18 Other acute postprocedural pain; K21.9 Gastro-esophageal reflux disease without esophagitis; Z21 Asymptomatic human immunodeficiency virus [HIV] infection status; E78.5 Hyperlipidemia, unspecified; K66.0 Peritoneal adhesions (postprocedural) (postinfection); Z79.899 Other long term (current) drug therapy
CPT/HCPCS: 36415; 80048; 85025; 85027; 86850; 86900; 86901; 88304; 88305; 93005; C1758; J0131; J0690; J1100; J1170; J1650; J2405; J2704; J2795; J3010; J7120

== ENCOUNTER → 2023-07-04 11:41 | Outpatient (BNV) | payer MEDICARE, MEDICAID, SELFPAY | PROVIDERS: Admitting Provider Surgery; PCP Family Medicine; Visit Provider Physician Assistant Surgical | DX: Z98.890 Other specified postprocedural states (principal) | CPT/HCPCS: 44626; 99024 ==

== ENCOUNTER 2023-07-15 10:42 | Outpatient (AMB) | payer MEDICARE, MEDICAID, SELFPAY ==
--- NOTE | 2023-07-15 10:51 | A.OFFVIS_ITS ---
Intake Visit Reasons: S/P colostomy reversal Intake Note: Patient here s/p colostomy reversal. Reports incisions healing well. Patient c/o: SX: 07-04-23. Logistics Engineering Manager Required: Yes Logistics Engineering Manager Name: Roz ESTRADA Accompanied by: Self / Same As Patient Allergies No Known Allergies Allergy (Verified 07/15/23 11:00) HPI Comments Details: Patient presents for follow-up. He is doing quite well. He is time diet. Having regular bowel habits. He is ambulating well and increasing his distances. He has minimal incisional discomfort. [facility] Medical History HTN (hypertension) GERD (gastroesophageal reflux disease) Perforated diverticulum Manic depression Hyperlipidemia Asthma ETOH abuse HIV (human immunodeficiency virus infection) Surgical History History of colostomy reversal (07/04/23) Hx of hemorrhoidectomy History of incision and drainage History of creation of ostomy Hx of cholecystectomy Hx of colonoscopy Social History Household Members: None Housing: Apartment Are you a primary career law clerk to a significant other at home: No Do you presently have visiting nurse or other home services: No Unable to assess alcohol history related to: Unable to respond Alcohol intake: current Alcohol intake frequency: holidays/special occasions only Alcohol type: hard liquor Comment: pt refuse bed alarm Patient Tobacco Use Status: Never used Tobacco Substance Use Type: Marijuana service: No Physical Exam GI Other: Abdomen is soft. Midline wound well healed. Ostomy site healing by secondary intention. Clean dry and intact Assessment & Plan Assessment & Plan (1) Status post colostomy takedown: Code(s): Z98.890 - Other specified postprocedural states Category: Medical Plan Patient has been given local instructions and will see me as directed or p.r.n.. All questions answered.
== END 2023-07-15 10:51 | disposition home or self-care (01) ==
LOC: HO.HGS 10:42
PROVIDERS: PCP Family Medicine; Visit Provider Surgery
DX: Z98.890 Other specified postprocedural states (principal)
CPT/HCPCS: 99024

== ENCOUNTER → 2023-07-15 10:42 | Outpatient (BNVA) | payer MEDICARE, MEDICAID, SELFPAY | PROVIDERS: PCP Family Medicine; Visit Provider Surgery | DX: K76.0 Fatty (change of) liver, not elsewhere classified (principal); K74.00 Hepatic fibrosis, unspecified; Z98.890 Other specified postprocedural states | CPT/HCPCS: 99212 ==

== ENCOUNTER 2023-07-29 12:44 | Outpatient (AMB) | payer MEDICARE, MEDICAID, SELFPAY ==
--- NOTE | 2023-07-29 12:50 | MHC.OFFVIS ---
Intake Visit Reasons: incision opening up Intake Note: Patient here concerned with colostomy reversal incision opening up. SX: 07-04-2023 Office Clinician Required: No Accompanied by: Self / Same As Patient Allergies No Known Allergies Allergy (Verified 07/29/23 12:53) HPI Comments Details: Patient presents for follow-up. He has some discharge at the umbilical incision site. He is otherwise doing very well. Tolerating a diet. Having regular bowel habits. Increasing his activity level. [facility] Medical History HTN (hypertension) GERD (gastroesophageal reflux disease) Perforated diverticulum Manic depression Hyperlipidemia Asthma ETOH abuse HIV (human immunodeficiency virus infection) Surgical History History of colostomy reversal (07/04/23) Hx of hemorrhoidectomy History of incision and drainage History of creation of ostomy Hx of cholecystectomy Hx of colonoscopy Social History Household Members: None Housing: Apartment Are you a primary patient care coordinator to a significant other at home: No Do you presently have visiting nurse or other home services: No Unable to assess alcohol history related to: Unable to respond Alcohol intake: current Alcohol intake frequency: holidays/special occasions only Alcohol type: hard liquor Comment: pt refuse bed alarm Patient Tobacco Use Status: Never used Tobacco Substance Use Type: Marijuana service: No Physical Exam GI Other: Abdomen is soft. Both incision sites were clean dry and intact. The umbilical wound has a stitch abscess with superficial granulating tissue. No evidence of any purulence. Wound base was cauterized with silver nitrate and dressing applied. Assessment & Plan Assessment & Plan (1) Postoperative stitch abscess: Code(s): T81.41XA - Infection following a procedure, superficial incisional surgical site, initial encounter Category: Surgical Plan Patient has been given local instructions including bacitracin to the area, may shower, and he has tentatively scheduled to see me on the of this month. He is to keep that appointment. All questions answered. Coding Level of Care Code Global (82786) Diagnoses Postoperative stitch abscess T81.41XA
== END 2023-07-29 12:57 | disposition home or self-care (01) ==
PROVIDERS: PCP Family Medicine; Visit Provider Surgery
DX: T81.41XA Infection following a procedure, superficial incisional surgical site, initial encounter (principal)
CPT/HCPCS: 99024

== ENCOUNTER → 2023-07-29 12:44 | Outpatient (BNVA) | payer MEDICARE, MEDICAID, SELFPAY | PROVIDERS: PCP Family Medicine; Visit Provider Surgery | DX: T81.41XA Infection following a procedure, superficial incisional surgical site, initial encounter (principal) | CPT/HCPCS: 99212 ==

== ENCOUNTER 2023-08-05 10:39 | Outpatient (AMB) | payer MEDICARE, MEDICAID, SELFPAY ==
--- NOTE | 2023-08-05 10:44 | A.OFFVIS_ITS ---
Intake Visit Reasons: 3 wk follow up colostomy reversal Intake Note: Patient here for 4wk s/p colostomy reversal. Reports incisions healing well. Patient c/o: no concerns. No longer taking rx pain meds. SX: 07-04-23. Insulation Batting Machine Operator Required: No Accompanied by: Self / Same As Patient Allergies No Known Allergies Allergy (Verified 08/05/23 10:46) HPI Comments Details: Patient presents for follow-up he is doing quite well. He has tolerating a diet. Having regular bowel habits. The area of his incision has a small exuberant granulating tissue area smaller than the tip of a Q-tip which was cauterized using silver nitrate and dressing applied. Otherwise both incisions have healed very well. [facility] Medical History HTN (hypertension) GERD (gastroesophageal reflux disease) Perforated diverticulum Manic depression Hyperlipidemia Asthma ETOH abuse HIV (human immunodeficiency virus infection) Surgical History History of colostomy reversal (07/04/23) Hx of hemorrhoidectomy History of incision and drainage History of creation of ostomy Hx of cholecystectomy Hx of colonoscopy Social History Household Members: None Housing: Apartment Are you a primary career development specialist to a significant other at home: No Do you presently have visiting nurse or other home services: No Unable to assess alcohol history related to: Unable to respond Alcohol intake: current Alcohol intake frequency: holidays/special occasions only Alcohol type: hard liquor Comment: pt refuse bed alarm Patient Tobacco Use Status: Never used Tobacco Substance Use Type: Marijuana service: No Physical Exam GI Other: Abdominal exam as noted above Assessment & Plan Assessment & Plan (1) Postop check: Code(s): Z09 - Encounter for follow-up examination after completed treatment for conditions other than malignant neoplasm Category: Surgical (2) Status post colostomy takedown: Code(s): Z98.890 - Other specified postprocedural states Category: Surgical Plan Patient has been given local instructions, and will otherwise follow-up p.r.n.. All questions answered. Coding Level of Care Code Global (40482) Diagnoses Postop check Z09 Status post colostomy takedown Z98.890
== END 2023-08-05 10:49 | disposition home or self-care (01) ==
PROVIDERS: PCP Family Medicine; Visit Provider Surgery
DX: Z09 Encounter for follow-up examination after completed treatment for conditions other than malignant neoplasm (principal); Z98.890 Other specified postprocedural states
CPT/HCPCS: 99024

== ENCOUNTER → 2023-08-05 10:39 | Outpatient (BNVA) | payer MEDICARE, MEDICAID, SELFPAY | PROVIDERS: PCP Family Medicine; Visit Provider Surgery | DX: Z09 Encounter for follow-up examination after completed treatment for conditions other than malignant neoplasm (principal); Z98.890 Other specified postprocedural states | CPT/HCPCS: 99212 ==

== ENCOUNTER 2023-09-09 10:18 | Outpatient (REF) | payer MEDICARE, MEDICAID, SELFPAY ==
[2023-09-09 11:23] LABS: MANUAL DIFF FLAG NO
[2023-09-09 11:29] LABS: Basophils Percent Auto 0.4 % (0-2); Eosinophils Percent Auto 0.4 % (0-4); Hematocrit 45.7 % (42.0-52.0); Hemoglobin 15.8 g/dl (14.0-18.0); Imm Gran Abs Auto 0.01 X10*3/uL (0.00-0.03); Imm Gran Pct Auto 0.1 % (0.0-0.4); Lymphocytes Absolute Auto 1.9 X10*3/uL (1.2-4.9); Lymphocytes Percent Auto 25.2 % (20-40); Mean Corpuscular HGB Conc 34.6 g/dl (31.0-36.0); Mean Corpuscular Hemoglobin 33.1 pg (27.0-33.0); Mean Corpuscular Volume 95.8 fL (80.0-98.0); Mean Platelet Volume 9.2 fL (9.4-12.4); Monocytes Absolute Auto 0.5 X10*3/uL (0.1-1.2); Monocytes Percent Auto 6.6 % (2-11); Neutrophils Absolute Auto 5.2 x10*3/uL (2.0-8.3); Neutrophils Percent Auto 67.3 % (45-73); Platelet Count 286 X10*3/uL (160-400); Red Blood Count 4.77 X10*6/uL (4.60-5.80); Red Cell Distribution Width 13.2 % (11.0-16.0); White Blood Count 7.7 X10*3/uL (4.8-10.8)
[2023-09-09 12:18] LABS: Estimated Average Glucose 91 mg/dL; Hemoglobin A1c % 4.8 % (<6.0)
[2023-09-09 12:20] LABS: Alanine Aminotransferase 28 U/L (0-40); Albumin Level 4.5 g/dL (3.5-5.0); Alkaline Phosphatase 64 U/L (39-117); Anion Gap 14 (12-20); Aspartate Amino Transferase 25 U/L (5-37); Bilirubin Direct 0.2 mg/dL (0.0-0.5); Bilirubin Total 0.5 mg/dL (0.0-1.0); Blood Urea Nitrogen 16 mg/dL (9-16); Calcium 9.6 mg/dL (8.4-10.2); Carbon Dioxide 26 mmol/L (22-29); Chloride 107 mmol/L (96-108); Cholesterol 161 mg/dL (<200); Estimated Glomerular Filt Rate > 60; Glucose Random 104 mg/dL (60-115); HDL Cholesterol 51 mg/dL (>40); LDL Cholesterol Calculated 97 mg/dL (<100); Potassium 4.3 mmol/L (3.3-5.1); Sodium 143 mmol/L (135-145); Total Protein 8.4 g/dL (6.5-8.0); Triglycerides 65 mg/dL (<150)
[2023-09-09 12:36] LABS: Thyroid Stimulating Hormone 2.24 uIU/mL (0.32-4.0)
[2023-09-09 12:37] LABS: Free T4 (Free Thyroxine) 1.02 ng/dL (0.71-1.85); Vitamin D 25-OH Total 30.7 ng/mL (>30)
[2023-09-10 03:46] LABS: Syphilis Screen Reactive (Nonreactive)
[2023-09-10 03:51] LABS: HBS Num1 3.41 mIU/mL (0-7.99); ~Hepatitis B Surface Antibody NONREACTIVE (Nonreactive)
[2023-09-10 11:03] LABS: RPR Rapid Plasma Reagin NON-REACTIVE (NON-REACTIVE)
[2023-09-10 11:59] LABS: Alpha Fetoprotein 5.9 ng/mL (<6.1)
[2023-09-10 13:53] LABS: Rubeola IgG (Measles) <13.50 AU/mL
[2023-09-11 07:09] LABS: Absolute CD3 Count 1298 cells/uL (840-3060); Absolute CD4 Count 724 cells/uL (490-1740); Absolute CD8 Count 570 cells/uL (180-1170); Absolute Lymphocytes 1893 cells/uL (850-3900); CD4 CD8 Ratio 1.27 (0.86-5.00); Percent CD3 Cells 69 % (57-85); Percent CD4 Cells 38 % (30-61); Percent CD8 Cells 30 % (12-42)
[2023-09-11 09:13] LABS: HCV Log PCR <1.18 NOT DETECTED Log IU/mL (NOT DETECTED); HepC Viral Load <15 NOT DETECTED IU/mL (NOT DETECTED)
[2023-09-11 13:52] LABS: HIV RNA PCR Qn Copies NOT DETECTED copies/mL (NOT DETECTED); HIV RNA PCR Qn Log Copies NOT DETECTED (NOT DETECTED)
[2023-09-12 01:53] LABS: TS Negative Control Passed; TS Panel A 0; TS Panel B 2; TS Positive Control Passed; TSpotTB Negative (Negative)
[2023-09-15 11:47] LABS: RPR Quantitative Non-Reactive (Nonreactive)
[2023-09-15 11:48] LABS: T.Pallidum Particle Agg Test Reactive (Nonreactive)
== END 2023-09-09 10:19 | disposition home or self-care (01) ==
LOC: HO.HHCL 10:18
PROVIDERS: Student in an Organized Health Care Education/Training Program; Visit Provider Family Medicine
DX: K76.0 Fatty (change of) liver, not elsewhere classified (principal); K74.00 Hepatic fibrosis, unspecified; B20 Human immunodeficiency virus [HIV] disease; I10 Essential (primary) hypertension; Z11.3 Encounter for screening for infections with a predominantly sexual mode of transmission; R79.9 Abnormal finding of blood chemistry, unspecified; Z11.59 Encounter for screening for other viral diseases
CPT/HCPCS: 36415; 80053; 80061; 82105; 82248; 82306; 83036; 84439; 84443; 85025; 86359; 86360; 86481; 86592; 86706; 86735; 86762; 86765; 86780; 87522; 87536

== ENCOUNTER 2023-12-13 09:39 | Outpatient (REF) | payer MEDICARE, MEDICAID, SELFPAY ==
--- NOTE | ~2023-12-13 | US_ITS ---
EXAMINATION: US ABDOMEN COMPLETE CLINICAL INFORMATION: Fatty liver, followup. COMPARISON: CT abdomen and pelvis 12/07/2022. Ultrasound abdomen complete 07/11/2020 and 01/09/2017. TECHNIQUE: Real-time imaging of the abdominal viscera. FINDINGS: PANCREAS: Normal. ABDOMINAL AORTA: The proximal, mid, and distal segments are normal in caliber. INFERIOR VENA CAVA: Visualized portions are normal. LIVER: The liver is mildly enlarged at 17 cm in greatest length, with increased echogenicity seen, consistent with hepatic steatosis. The liver contour is normal. A cyst is seen adjacent to the gallbladder fossa measuring 2.1 cm. Similar finding was seen on the 12/07/2022 CT scan. No focal solid hepatic lesion. There is no intrahepatic biliary duct dilatation seen. GALLBLADDER: Surgically absent. COMMON BILE DUCT: Normal in caliber measuring 0.5 cm in diameter. RIGHT KIDNEY: Normal. No hydronephrosis. No renal calculi or focal parenchymal lesions. The kidney measures 12.3 cm in maximum dimension. LEFT KIDNEY: Normal. No hydronephrosis. No renal calculi or focal parenchymal lesions. The kidney measures 12.1 cm in maximum dimension. SPLEEN: Normal. The spleen measures 12.8 cm in maximum dimension. FREE FLUID: None. US/US abdomen complete IMPRESSION: Mildly enlarged fatty liver. Electronically signed by: Michelet Moreno MD 12/18/2023 05:05 PM EDT
== END 2023-12-13 09:40 | disposition home or self-care (01) ==
LOC: HO.US 09:39
PROVIDERS: PCP Family Medicine; Visit Provider Family Medicine
DX: K76.0 Fatty (change of) liver, not elsewhere classified (principal)
CPT/HCPCS: 76700

== ENCOUNTER 2024-01-13 10:56 | Outpatient (REF) | payer MEDICARE, MEDICAID, SELFPAY ==
[2024-01-13 14:36] LABS: Alanine Aminotransferase 36 U/L (0-40); Albumin Level 4.2 g/dL (3.5-5.0); Alkaline Phosphatase 63 U/L (39-117); Aspartate Amino Transferase 36 U/L (5-37); Bilirubin Direct 0.2 mg/dL (0.0-0.5); Bilirubin Total 0.5 mg/dL (0.0-1.0); Total Protein 7.7 g/dL (6.5-8.0)
== END 2024-01-13 10:57 | disposition home or self-care (01) ==
LOC: HO.HHCL 10:56
PROVIDERS: Visit Provider Student in an Organized Health Care Education/Training Program
DX: Z21 Asymptomatic human immunodeficiency virus [HIV] infection status (principal)
CPT/HCPCS: 36415; 80076

== ENCOUNTER 2024-03-31 08:19 | Outpatient (REF) | payer MEDICARE, MEDICAID, SELFPAY ==
[2024-03-31 11:21] LABS: MANUAL DIFF FLAG NO
[2024-03-31 11:25] LABS: Basophils Percent Auto 0.4 % (0-2); Eosinophils Percent Auto 0.5 % (0-4); Hematocrit 46.6 % (42.0-52.0); Hemoglobin 16.3 g/dl (14.0-18.0); Imm Gran Abs Auto 0.03 X10*3/uL (0.00-0.03); Imm Gran Pct Auto 0.4 % (0.0-0.4); Lymphocytes Absolute Auto 2.1 X10*3/uL (1.2-4.9); Lymphocytes Percent Auto 28.8 % (20-40); Mean Corpuscular Hemoglobin 32.9 pg (27.0-33.0); Mean Corpuscular Volume 94.1 fL (80.0-98.0); Monocytes Absolute Auto 0.6 X10*3/uL (0.1-1.2); Monocytes Percent Auto 8.5 % (2-11); Neutrophils Absolute Auto 4.5 x10*3/uL (2.0-8.3); Neutrophils Percent Auto 61.4 % (45-73); Platelet Count 288 X10*3/uL (160-400); Red Blood Count 4.95 X10*6/uL (4.60-5.80); White Blood Count 7.4 X10*3/uL (4.8-10.8)
[2024-03-31 11:55] LABS: Alanine Aminotransferase 51 U/L (0-40); Albumin Level 4.3 g/dL (3.5-5.0); Anion Gap 14 (12-20); Aspartate Amino Transferase 48 U/L (5-37); Bilirubin Total 0.6 mg/dL (0.0-1.0); Blood Urea Nitrogen 11 mg/dL (9-16); Calcium 9.3 mg/dL (8.4-10.2); Carbon Dioxide 23 mmol/L (22-29); Chloride 107 mmol/L (96-108); Estimated Glomerular Filt Rate > 60; Glucose Random 117 mg/dL (60-115); Potassium 3.9 mmol/L (3.3-5.1); Sodium 140 mmol/L (135-145); Total Protein 8.3 g/dL (6.5-8.0)
[2024-03-31 12:21] LABS: Alkaline Phosphatase 59 U/L (39-117)
[2024-03-31 12:30] LABS: HBS Num1 3.09 mIU/mL (0-7.99); HBc Num1 0.18 S/CO (0.00-0.79); HBsAGNum1 0.41 S/CO (0.00-0.99); Hepatitis B Core Antibody Nonreactive (Nonreactive); Hepatitis B Surface Antigen Negative (Negative); ~Hepatitis B Surface Antibody NONREACTIVE (Nonreactive)
[2024-04-02 14:13] LABS: HIV RNA PCR Qn Copies NOT DETECTED copies/mL (NOT DETECTED); HIV RNA PCR Qn Log Copies NOT DETECTED (NOT DETECTED)
[2024-04-03 18:09] LABS: Absolute CD3 Count 1230 cells/uL (840-3060); Absolute CD4 Count 653 cells/uL (490-1740); Absolute CD8 Count 583 cells/uL (180-1170); Absolute Lymphocytes 1992 cells/uL (850-3900); CD4 CD8 Ratio 1.12 (0.86-5.00); Percent CD3 Cells 62 % (57-85); Percent CD4 Cells 33 % (30-61); Percent CD8 Cells 29 % (12-42)
== END 2024-03-31 08:20 | disposition home or self-care (01) ==
LOC: HO.HHCL 08:19
PROVIDERS: Visit Provider Student in an Organized Health Care Education/Training Program
DX: B20 Human immunodeficiency virus [HIV] disease (principal)
CPT/HCPCS: 36415; 80053; 85025; 86359; 86360; 86704; 86706; 87340; 87536

== ENCOUNTER 2024-08-29 11:33 | Emergency (ER) | payer MEDICARE, MEDICAID, SELFPAY ==
--- NOTE | ~2024-08-29 | CT_ITS ---
CLINICAL HISTORY: LLQ pain hx divertic w perf CT abdomen and pelvis with contrast Comparison: CT - CT ABDOMEN PELVIS W IV CON - 08/29/24 15:46 EDT Findings: The lung bases are clear. The liver, spleen, adrenal glands and pancreas are unremarkable. The gallbladder is absent. Kidneys, ureters and bladder are normal. No bowel obstruction, free air, free fluid or abscess. Diverticulosis without diverticulitis. Normal appendix. Small fat containing inguinal hernias bilaterally. Minimal atherosclerotic disease. No acute osseous finding. Degenerative changes seen within the spine. Impression: No definite acute process. Incidental findings. This document has been electronically signed by: Isaías Gupta MD on 08/29/2024 16:18:58
--- NOTE | 2024-08-29 11:41 | ED_ITS ---
HPI - General Adult General Chief complaint: Abdominal Pain Stated complaint: l side pain Time Seen by Provider: 08/29/24 14:44 Source: patient Mode of arrival: ambulatory Limitations: no limitations History of Present Illness ED Provider: MIKE MCKINNEY PA-C HPI narrative: 59 year old male with pmhx significant for HLD, HTN, HERD, etoh abuse, HIV, asthma, GERD, diverticulitis complicated by perforation s/p colostomy with reversal presents to the ED today for evaluation of left lower quadrant abdominal pain since 1700 yesterday. Reports a dull ache to his left lower quadrant that has been constant since onset. No radiation. Reports pain is currently a 6/10. Reports taking Tylenol this morning. Denies any diarrhea or constipation. Normal nonbloody bowel movement this morning. Denies fever/chills, N/V, flank pain, urinary symptoms. Related Data Home Medications ?Medication ?Instructions ?Recorded ?Confirmed amlodipine 10 mg tablet 10 mg PO QAM 12/07/22 07/04/23 aripiprazole 15 mg tablet 15 mg PO QAM 12/07/22 07/04/23 bictegravir 50 mg-emtricitabine 1 tab PO BEDTIME 12/07/22 07/04/23 200 mg-tenofovir alafenam 25 mg tablet (Biktarvy) bupropion HCl 150 mg tablet,12 hr 150 mg PO BID 12/07/22 07/04/23 sustained-release famotidine 40 mg tablet 40 mg PO BEDTIME 12/07/22 07/04/23 lisinopril 40 mg tablet 40 mg PO QAM 12/07/22 07/04/23 lorazepam 0.5 mg tablet 0.5 mg PO BID 12/07/22 07/04/23 mirtazapine 45 mg tablet 45 mg PO BEDTIME 12/07/22 07/04/23 montelukast 10 mg tablet 10 mg PO QAM 12/07/22 07/04/23 rosuvastatin 5 mg tablet 5 mg PO QAM 12/07/22 07/04/23 Allergies Allergy/AdvReac Type Severity Reaction Status Date / Time No Known Allergies Allergy Verified 08/29/24 11:43 Review of Systems 2 Review of Systems: Constitutional: No fever, chills, fatigue, night sweats, weight changes ENT/Mouth: No ear pain, hearing loss, nasal congestion, sinus pain, rhinorrhea, sore throat Eyes: No eye pain, swelling, redness, vision changes, discharge Cardio: No chest pain, palpitations, HAYDEN, orthopnea, peripheral edema Pulm: No SOB, cough, sputum, wheezing, dyspnea, hemoptysis GI: No nausea, vomiting, hematemesis, diarrhea, constipation, hematochezia, melena, +abd pain : No irregular bleeding, dysuria, frequency, urgency, hesitancy, hematuria, flank pain, urinary flow changes, urinary incontinence or retention MSK: No back pain, neck pain, joint pain, myalgias Skin: No lesions, rashes Neuro: No weakness, numbness, paresthesias, LOC, dizziness, headache Psych: No anxiety/panic, depression, SI/HI, AH/VH All other systems reviewed and are negative. [facility] Past Medical History Attestation statement: The following information was validated with the patient. Source: old records reviewed and nursing notes reviewed Medical History HTN (hypertension) GERD (gastroesophageal reflux disease) Perforated diverticulum Manic depression Hyperlipidemia Asthma ETOH abuse HIV (human immunodeficiency virus infection) Surgical History History of colostomy reversal (07/04/23) Hx of hemorrhoidectomy History of incision and drainage History of creation of ostomy Hx of cholecystectomy Hx of colonoscopy Social History Social History Household Members: None Housing: Apartment Are you a primary day care supervisor to a significant other at home: No Do you presently have visiting nurse or other home services: No Unable to assess alcohol history related to: Unable to respond Alcohol intake: current Alcohol intake frequency: holidays/special occasions only Alcohol type: hard liquor Comment: pt refuse bed alarm Patient Tobacco Use Status: Never used Tobacco Smoked in Last 30 Days: No Use of substances other than those prescribed or required for medical reasons: Yes Substance Use Type: Marijuana Substance Use Frequency: Daily Substance Use Frequency Other:: 1 Last Used Substance: Days (ago) Advance Directives: No Advance Directives Information Provided: No service: No Physical Exam ED Vital Signs: Vital Signs - 24 hr 08/29/24 11:42 06/07/25 14:44 Temperature 97.9 F Pulse Rate 99 88 Respiratory Rate 18 17 Blood Pressure 147/96 H 130/83 Pulse Oximetry 99 100 Oxygen Delivery Method Room Air Room Air BMI result Body Mass Index 36.5 hypertensive, vitals are otherwise wnl. afebrile. General: Well appearing, in no acute distress. Skin: Warm, dry, intact. No rashes or lesions. Head: Normocephalic, atraumatic. EENT: Hearing is intact b/l. Conjunctiva clear. PERRLA. EOM intact. Moist mucous membranes.? Neck: Supple without LAD Cardiac: Chest wall symmetric. RRR Lungs: Normal respiratory effort without accessory muscle use. CTA bilaterally. Abdomen: Obese abdomen, soft, ND, ttp of LLQ without rebound or rebound. active bsx4. no palpable abdominal hernias. Back: No midline spinous or paraspinal tenderness. No step off deformity. Ext: Upper and lower extremities atraumatic, without tenderness, deformity, swelling or erythema Neuro: AOx3. Normal speech. Ambulating with steady gait. Course Course Course Narrative: This is a Rapid Medical Exam performed in triage by rIis Livingston PA-C. Full HPI, ROS and PE to be performed by primary ED provider. 59-year-old male with a past medical history HTN, GERD, HIV, HLD, Asthma, ETOH abuse, diverticulitis s/p perforation w/colostomy & reversal presenting to the ED c/o LLQ abd pain x last night. denies constipation/diarrhea, N/V, fever, urinary sx PE: nontoxic appearing, abdomen soft +diffuse ttp (mild) > LLQ. No rebound or guarding Plan: Labs, UA Reevaluation(s) Reevaluation #1: 1534 -- CBC without leukocytosis or left shift. No anemia. H&H stable. Chemistry without acute electrolyte abnormality requiring intervention. No PREET. Liver function appears around baseline. Lipase WNL. Urine negative for infection. > IV Toradol ordered for 6/10 pain. IV fluids running. > CT abdomen/pelvis pending 1714 -- CT abdomen/pelvis without evidence of diverticulitis. No abscess or perforation. Normal appendix. There are small bilateral inguinal hernias containing fat. No bowel obstruction. > workup unremarkable. On re-evaluation, patient states he feels well after receiving Toradol and IV fluids. Discussed all workup results with patient. States he is relieved. He is ready to be discharged home. I feel this is reasonable. Advised outpatient follow up. Patient has remained stable throughout ED visit today. Discussed worrisome signs and symptoms and when to return to the ED. All questions answered at this time. Patient is agreeable with disposition and stable for discharge. Medications Administered Discontinued Medications Generic Name Dose Route Start Last Admin Trade Name Freq PRN Reason Stop Dose Admin Sodium Chloride 1,000 mls @ 999 mls/hr 08/29/24 15:15 08/29/24 16:20 Ns IV 08/29/24 16:15 Infused .Q1H1M ELSY Infusion Iohexol 100 ml 08/29/24 15:51 08/29/24 15:51 Iohexol 350 Mg/Ml 100 Ml Infus..Btl IV 08/29/24 15:52 100 ml ONCE ONE Administration Ketorolac Tromethamine 30 mg 08/29/24 15:04 08/29/24 15:18 Ketorolac Tromethamine 30 Mg/Ml Vial IVPUSH 08/29/24 15:05 30 mg ONCE ONE Administration Medical Decision Making Medical Decision Making MDM Narrative: 59 year old male with pmhx significant for HLD, HTN, HERD, etoh abuse, HIV, asthma, GERD, diverticulitis complicated by perforation s/p colostomy with reversal presents to the ED today for evaluation of left lower quadrant abdominal pain since 0 yesterday. Patient is hypertensive, vitals are otherwise WNL. He is nontoxic appearing in no acute distress. On exam, abdomen is soft, nondistended, tender to palpation of left lower quadrant without guarding, no rebound. Active bowel sounds x4. Differential diagnoses: appendicitis, diverticulitis, diverticulosis, UTI, constipation, colitis. Lower suspicion for renal colic, nephrolithiasis, pyelonephritis, hydronephrosis. Abdominal exam without peritoneal signs. No evidence of acute abdomen at this time. Well appearing. Low suspicion for acute hepatobiliary disease (including acute cholecystitis- status post cholecystectomy), acute infectious processes (pneumonia, hepatitis), vascular catastrophe, bowel obstruction or viscus perforation, testicular torsion, orchitis, epidydymitis. Presentation not consistent with other acute, emergent causes of abdominal pain at this time. Plan: labs, UA, CT AP, pain control, fluids, serial reassessment Differential Diagnosis Differential Diagnoses: The differential diagnosis associated with the presentation includes as above. Admission/Observation Not indicated Lab Data MDM Lab Attestation statement: I reviewed the patient's lab results. as above. 08/29/24 13:06 08/29/24 13:06 Labs: Lab Results 08/29/24 08/29/24 Range/Units 13:06 13:08 WBC 9.2 (4.8-10.8) X10*3/uL RBC 4.66 (4.60-5.80) X10*6/uL Hgb 15.5 (14.0-18.0) g/dl Hct 43.3 (42.0-52.0) % MCV 92.9 (80.0-98.0) fL MCH 33.3 H (27.0-33.0) pg MCHC 35.8 (31.0-36.0) g/dl RDW 13.1 (11.0-16.0) % Plt Count 235 (160-400) X10*3/uL MPV 8.9 L (9.4-12.4) fL Immature Gran % (Auto) 0.2 (0.0-0.4) % Neut % (Auto) 73.2 H (45-73) % Lymph % (Auto) 20.1 (20-40) % Dickinson % (Auto) 6.1 (2-11) % Eos % (Auto) 0.1 (0-4) % Baso % (Auto) 0.3 (0-2) % Lymph # (Auto) 1.8 (1.2-4.9) X10*3/uL Dickinson # (Auto) 0.6 (0.1-1.2) X10*3/uL Eos # (Auto) 0.0 (0.0-0.4) X10*3/uL Baso # (Auto) 0.0 (0.0-0.2) X10*3/uL Abs Immat Gran (auto) 0.02 (0.00-0.03) X10*3/uL Absolute Neuts (auto) 6.7 (2.0-8.3) x10*3/uL Absolute Nucleated RBC 0.000 (0.0-0.012) X10*3/uL Nucleated RBC % (auto) 0.0 (0.0-0.2) /100WBC Sodium 139 (135-145) mmol/L Potassium 3.9 (3.3-5.1) mmol/L Chloride 108 (96-108) mmol/L Carbon Dioxide 25 (22-29) mmol/L Anion Gap 10 L (12-20) BUN 16 (9-16) mg/dL Creatinine 0.95 (0.5-1.4) mg/dL Estim Creat Clear Calc 108.4 Estimated GFR > 60 Random Glucose 101 (60-115) mg/dL Calcium 9.0 (8.4-10.2) mg/dL Magnesium 2.2 (1.6-2.6) mg/dL Total Bilirubin 0.8 (0.0-1.0) mg/dL Direct Bilirubin 0.3 (0.0-0.5) mg/dL AST 46 H (5-37) U/L ALT 52 H (0-40) U/L Alkaline Phosphatase 55 (39-117) U/L Total Protein 7.8 (6.5-8.0) g/dL Albumin 4.5 (3.5-5.0) g/dL Lipase 14 (8-78) U/L Urine Color Yellow Urine Appearance Clear Urine pH 5.5 (5.0-9.0) Ur Specific [place] 1.025 (1.005-1.025) Urine Protein Negative (Neg-Trace) mg/dL Urine Glucose (UA) Negative (Negative) mg/dL Urine Ketones Negative (Negative) mg/dL Urine Blood Negative (Negative) Urine Nitrite Negative (Negative) Ur Leukocyte Esterase Negative (Negative) Independent Interpretation I performed an independent interpretation of an: CT Scan Interpretation: ct a/p without bowel obstruction Radiology Impression Discussion of test interpretation with radiology: I have reviewed the radiologist's reading. Radiologist Impression: Date of Service: 08/29/24 Procedure(s): CT abdomen pelvis w IV con Accession Number(s): [id number] cc: Apple Neri Rainey PA~ Report Number: [id number]: Total DLP = 0.00 mGy-cm CLINICAL HISTORY: LLQ pain hx divertic w perf CT abdomen and pelvis with contrast Comparison: CT - CT ABDOMEN PELVIS W IV CON - 08/29/24 15:46 EDT Findings: The lung bases are clear. The liver, spleen, adrenal glands and pancreas are unremarkable. The gallbladder is absent. Kidneys, ureters and bladder are normal. No bowel obstruction, free air, free fluid or abscess. Diverticulosis without diverticulitis. Normal appendix. Small fat containing inguinal hernias bilaterally. Minimal atherosclerotic disease. No acute osseous finding. Degenerative changes seen within the spine. Impression: No definite acute process. Incidental findings. This document has been electronically signed by: Isaías Gupta MD on 08/29/2024 16:18:58 Independent Historian Clinical information obtained from an independent historian. History obtained from or confirmed by: Spouse External Record Review External record reviewed: Inpatient record Prescription Management I considered prescription management with: Pain Medication Chronic Conditions Patient?s care impacted by: Other (Diverticulitis) Social Determinants Patient?s care significantly limited by Social Determinants of Health including: Other Social Determinant of Health Critical Care Time Critical Care Time Critical Care Time: No Discharge Plan Discharge Clinical Impression: Abdominal pain Patient Disposition: Home, Self-Care Instructions: Abdominal Pain (ED) Additional Instructions: You were seen in the ED today for lower abdominal pain Your pain improved with medication and fluids today. Your workup today is reassuring. The CT scan of your abdomen shows diverticulosis without evidence of diverticulitis.Your appendix is normal. There are small fat containing inguinal hernias. You may take Tylenol and ibuprofen at home as needed for pain/discomfort. Please follow up with your primary care provider. Return with any new or worsening symptoms. In the case of an emergency call 911. Prescriptions: No Action bupropion HCl 150 mg tablet sustained-release 12 hr 150 mg PO BID famotidine 40 mg tablet 40 mg PO BEDTIME lorazepam 0.5 mg tablet 0.5 mg PO BID amlodipine 10 mg tablet 10 mg PO QAM mirtazapine 45 mg tablet 45 mg PO BEDTIME montelukast 10 mg tablet 10 mg PO QAM lisinopril 40 mg tablet 40 mg PO QAM aripiprazole 15 mg tablet 15 mg PO QAM rosuvastatin 5 mg tablet 5 mg PO QAM Biktarvy 50-200-25 mg tablet 1 tab PO BEDTIME Referrals: Apple Neri DO [Primary Care Provider] - Print Language: Norwegian
[2024-08-29 11:42] VITALS: BP 147/96; PULSE 99; RESP 18; TEMP 36.6; O2SAT 99; BMI 36.5
[2024-08-29 13:13] LABS: MANUAL DIFF FLAG NO
[2024-08-29 13:20] LABS: Basophils Percent Auto 0.3 % (0-2); Eosinophils Percent Auto 0.1 % (0-4); Hematocrit 43.3 % (42.0-52.0); Hemoglobin 15.5 g/dl (14.0-18.0); Imm Gran Abs Auto 0.02 X10*3/uL (0.00-0.03); Imm Gran Pct Auto 0.2 % (0.0-0.4); Lymphocytes Absolute Auto 1.8 X10*3/uL (1.2-4.9); Lymphocytes Percent Auto 20.1 % (20-40); Mean Corpuscular HGB Conc 35.8 g/dl (31.0-36.0); Mean Corpuscular Hemoglobin 33.3 pg (27.0-33.0); Mean Corpuscular Volume 92.9 fL (80.0-98.0); Mean Platelet Volume 8.9 fL (9.4-12.4); Monocytes Absolute Auto 0.6 X10*3/uL (0.1-1.2); Monocytes Percent Auto 6.1 % (2-11); Neutrophils Absolute Auto 6.7 x10*3/uL (2.0-8.3); Neutrophils Percent Auto 73.2 % (45-73); Platelet Count 235 X10*3/uL (160-400); Red Blood Count 4.66 X10*6/uL (4.60-5.80); Red Cell Distribution Width 13.1 % (11.0-16.0); White Blood Count 9.2 X10*3/uL (4.8-10.8)
[2024-08-29 13:22] LABS: Appearance Urine Clear; Color Urine Yellow; Glucose Urine UA Negative (Negative); Leukocyte Esterase Urine Negative (Negative); Nitrite Urine Negative (Negative); PH 5.5 (5.0-9.0); Specific Gravity - Urine 1.025 (1.005-1.025); Urine Blood Negative (Negative); Urine Ketones Negative (Negative); Urine Protein Negative (Neg-Trace)
[2024-08-29 13:28] LABS: Alanine Aminotransferase 52 U/L (0-40); Albumin Level 4.5 g/dL (3.5-5.0); Alkaline Phosphatase 55 U/L (39-117); Anion Gap 10 (12-20); Aspartate Amino Transferase 46 U/L (5-37); Bilirubin Direct 0.3 mg/dL (0.0-0.5); Bilirubin Total 0.8 mg/dL (0.0-1.0); Blood Urea Nitrogen 16 mg/dL (9-16); Carbon Dioxide 25 mmol/L (22-29); Chloride 108 mmol/L (96-108); Creatinine Clr Calc Pharmacy 108.4; Estimated Glomerular Filt Rate > 60; Glucose Random 101 mg/dL (60-115); Lipase 14 U/L (8-78); Magnesium 2.2 mg/dL (1.6-2.6); Potassium 3.9 mmol/L (3.3-5.1); Sodium 139 mmol/L (135-145); Total Protein 7.8 g/dL (6.5-8.0)
[2024-08-29 14:44] VITALS: BP 130/83; PULSE 88; RESP 17; O2SAT 100
[2024-08-29] MEDS: Ketorolac Tromethamine 30 MG/ML VIAL IVPUSH (15:18)
[2024-08-29] MEDS: 0.9 % Sodium Chloride 1,000 ML 999 ML IV (15:18)
[2024-08-29] MEDS: iohexoL 350 MG/ML 100 ML INFUS..BTL IV (15:51)
[2024-08-29 16:55] VITALS: BP 127/80; PULSE 85; RESP 17; TEMP 36.5; O2SAT 97
[2024-08-29 17:37] VITALS: BP 127/80; PULSE 85; RESP 17; TEMP 36.5; O2SAT 97
== END 2024-08-29 17:39 | disposition home or self-care (01) ==
PROVIDERS: Physician Assistant; Emergency Provider Emergency Medicine; PCP Family Medicine
DX: R10.32 Left lower quadrant pain (principal); I10 Essential (primary) hypertension; B20 Human immunodeficiency virus [HIV] disease; E78.5 Hyperlipidemia, unspecified; J45.909 Unspecified asthma, uncomplicated
CPT/HCPCS: 36415; 74177; 80048; 80076; 81003; 83690; 83735; 85025; 96361; 96374; 99284; 99285; J1885; Q9967

== ENCOUNTER → 2024-08-29 15:04 | Outpatient (BNV) | payer MEDICARE, MEDICAID, SELFPAY | PROVIDERS: Emergency Provider Emergency Medicine; PCP Family Medicine; Visit Provider Radiology Vascular & Interventional Radiology | DX: K57.10 Diverticulosis of small intestine without perforation or abscess without bleeding (principal) | CPT/HCPCS: 74177 ==

== ENCOUNTER 2024-09-07 08:28 | Outpatient (REF) | payer MEDICARE, MEDICAID, SELFPAY ==
[2024-09-07 11:30] LABS: MANUAL DIFF FLAG NO
[2024-09-07 11:33] LABS: Basophils Percent Auto 0.5 % (0-2); Eosinophils Percent Auto 0.3 % (0-4); Hematocrit 47.3 % (42.0-52.0); Hemoglobin 16.1 g/dl (14.0-18.0); Imm Gran Abs Auto 0.02 X10*3/uL (0.00-0.03); Imm Gran Pct Auto 0.3 % (0.0-0.4); Lymphocytes Absolute Auto 1.6 X10*3/uL (1.2-4.9); Lymphocytes Percent Auto 25.4 % (20-40); Mean Corpuscular Hemoglobin 32.9 pg (27.0-33.0); Mean Corpuscular Volume 96.5 fL (80.0-98.0); Mean Platelet Volume 9.6 fL (9.4-12.4); Monocytes Absolute Auto 0.6 X10*3/uL (0.1-1.2); Monocytes Percent Auto 8.6 % (2-11); Neutrophils Absolute Auto 4.2 x10*3/uL (2.0-8.3); Neutrophils Percent Auto 64.9 % (45-73); Platelet Count 243 X10*3/uL (160-400); Red Cell Distribution Width 13.2 % (11.0-16.0); White Blood Count 6.4 X10*3/uL (4.8-10.8)
[2024-09-07 11:42] LABS: Estimated Average Glucose 105 mg/dL; Hemoglobin A1c % 5.3 % (<6.0)
[2024-09-07 11:50] LABS: Cholesterol 157 mg/dL (<200); HDL Cholesterol 41 mg/dL (>40); LDL Cholesterol Calculated 87 mg/dL (<100); Triglycerides 148 mg/dL (<150)
[2024-09-07 12:00] LABS: Alanine Aminotransferase 45 U/L (0-40); Albumin Level 4.5 g/dL (3.5-5.0); Alkaline Phosphatase 56 U/L (39-117); Anion Gap 13 (12-20); Aspartate Amino Transferase 47 U/L (5-37); Bilirubin Direct 0.3 mg/dL (0.0-0.5); Bilirubin Total 0.8 mg/dL (0.0-1.0); Blood Urea Nitrogen 13 mg/dL (9-16); Carbon Dioxide 25 mmol/L (22-29); Chloride 107 mmol/L (96-108); Cholesterol 156 mg/dL (<200); Estimated Glomerular Filt Rate > 60; Glucose Random 120 mg/dL (60-115); HDL Cholesterol 41 mg/dL (>40); LDL Cholesterol Calculated 85 mg/dL (<100); Potassium 3.8 mmol/L (3.3-5.1); Sodium 141 mmol/L (135-145); Total Protein 7.7 g/dL (6.5-8.0); Triglycerides 151 mg/dL (<150)
[2024-09-07 12:06] LABS: Free T4 (Free Thyroxine) 1.12 ng/dL (0.71-1.85); Thyroid Stimulating Hormone 2.41 uIU/mL (0.32-4.0); Vitamin D 25-OH Total 69.1 ng/mL (>30)
[2024-09-07 12:07] LABS: HBS Num1 2.79 mIU/mL (0-7.99); HBsAGNum1 0.32 S/CO (0.00-0.99); Hepatitis B Surface Antigen Negative (Negative); ~HepC Num1 0.27 S/CO (0.00-0.79); ~Hepatitis B Surface Antibody NONREACTIVE (Nonreactive); ~Hepatitis C Antibody Nonreactive (Nonreactive)
[2024-09-07 12:32] LABS: Reflex LDLD? No
[2024-09-08 21:49] LABS: HIV RNA PCR Qn Copies 164 copies/mL (NOT DETECTED); HIV RNA PCR Qn Log Copies 2.21 (NOT DETECTED)
[2024-09-09 11:54] LABS: RPR Rapid Plasma Reagin NON-REACTIVE (NON-REACTIVE)
[2024-09-10 01:54] LABS: TS Negative Control Passed; TS Panel A 1; TS Panel B 3; TS Positive Control Passed; TSpotTB Negative (Negative)
[2024-09-10 16:59] LABS: Absolute CD3 Count 1012 cells/uL (840-3060); Absolute CD4 Count 559 cells/uL (490-1740); Absolute CD8 Count 443 cells/uL (180-1170); Absolute Lymphocytes 1630 cells/uL (850-3900); CD4 CD8 Ratio 1.26 (0.86-5.00); Percent CD3 Cells 62 % (57-85); Percent CD4 Cells 34 % (30-61); Percent CD8 Cells 27 % (12-42)
== END 2024-09-07 08:29 | disposition home or self-care (01) ==
LOC: HO.HHCL 08:28
PROVIDERS: Family Medicine; Visit Provider Student in an Organized Health Care Education/Training Program
DX: E78.49 Other hyperlipidemia (principal); K76.0 Fatty (change of) liver, not elsewhere classified; J45.20 Mild intermittent asthma, uncomplicated; K21.9 Gastro-esophageal reflux disease without esophagitis; K57.90 Diverticulosis of intestine, part unspecified, without perforation or abscess without bleeding; Z21 Asymptomatic human immunodeficiency virus [HIV] infection status; A63.0 Anogenital (venereal) warts; M79.89 Other specified soft tissue disorders; B35.1 Tinea unguium; Z00.00 Encounter for general adult medical examination without abnormal findings; Z11.3 Encounter for screening for infections with a predominantly sexual mode of transmission; Z68.37 Body mass index [BMI] 37.0-37.9, adult; R79.9 Abnormal finding of blood chemistry, unspecified; Z11.59 Encounter for screening for other viral diseases; I10 Essential (primary) hypertension; Z72.89 Other problems related to lifestyle
CPT/HCPCS: 36415; 80053; 80061; 80076; 82105; 82248; 82306; 83036; 84439; 84443; 85025; 86359; 86360; 86481; 86592; 86706; 86803; 87340; 87536

== ENCOUNTER 2024-09-11 09:40 | Outpatient (REF) | payer MEDICARE, MEDICAID, SELFPAY ==
--- NOTE | ~2024-09-11 | XR_ITS ---
EXAMINATION: XR CHEST CLINICAL INFORMATION: acute shortness of breath COMPARISON: December 07, 2022. TECHNIQUE: 2 views of the chest were obtained. FINDINGS: Irregular patchy opacity medial right lower hemithorax. Pulmonary reticular pattern. No pneumothorax. No pleural effusion. Cardiomediastinal silhouette size is normal. Multilevel thoracic spondylosis. 20% volume loss of the vertebral bodies in the lower thoracic spine and likely related to osteopenia/osteoporosis. Degenerative changes in the left acromioclavicular joint. XR/XR chest 2V IMPRESSION: Concerning acute airspace disease, right middle lung lobe. Electronically signed by: Zac Crouch MD 09/11/2024 10:13 AM EDT
== END 2024-09-11 09:41 | disposition home or self-care (01) ==
LOC: HO.HHCX 09:40
PROVIDERS: PCP Family Medicine; Visit Provider Registered Nurse
DX: J45.31 Mild persistent asthma with (acute) exacerbation (principal)
CPT/HCPCS: 71046

== ENCOUNTER → 2024-09-11 09:45 | Outpatient (BNV) | payer MEDICARE, MEDICAID, SELFPAY | PROVIDERS: PCP Family Medicine; Visit Provider Radiology Diagnostic Radiology | DX: R06.00 Dyspnea, unspecified (principal) | CPT/HCPCS: 71046 ==

== ENCOUNTER 2024-09-16 11:47 | Outpatient (REF) | payer MEDICARE, MEDICAID, SELFPAY ==
[2024-09-16 13:41] LABS: D Dimer High Sensitivity < 150 NG/ML
== END 2024-09-16 11:48 | disposition home or self-care (01) ==
LOC: HO.HHCL 11:47
PROVIDERS: PCP Family Medicine; Visit Provider Registered Nurse
DX: R06.82 Tachypnea, not elsewhere classified (principal)
CPT/HCPCS: 36415; 85379

== ENCOUNTER 2024-12-15 08:39 | Outpatient (REF) | payer MEDICARE, MEDICAID, SELFPAY ==
--- NOTE | ~2024-12-15 | US_ITS ---
EXAMINATION: US COMPLETE ABDOMEN WITH LIVER ELASTOGRAPHY CLINICAL INFORMATION: Fatty liver with elevated LFTs. COMPARISON: No prior elastography. 12/13/2023 abdomen US. Correlation made with CT abdomen and pelvis 08/29/2024. TECHNIQUE: Real-time imaging of the abdominal viscera. Noninvasive ultrasound liver fibrosis assessment is performed using Jeison ElastPQ point quantification shear wave elastography (pSWE) with a C5-2 MHz transducer. Multiple elastography samples are obtained. FINDINGS: PANCREAS: The visualized pancreatic head and body are normal in appearance. The remainder of the pancreas is obscured from visualization by the overlying bowel gas. ABDOMINAL AORTA: No aortic aneurysm is seen. INFERIOR VENA CAVA: Visualized portions are normal. LIVER: The liver is mildly enlarged. There is diffusely increased hepatic echogenicity in keeping with fatty infiltration. There is no suspicious hepatic lesion. There is no intrahepatic biliary dilatation. The right lobe measures 20.2 cm in length. The left lobe measures 11.3 cm in length. Portal flow is towards the liver (hepatopetal). Shear wave liver elastography median stiffness is 1.51 m/s (reference: normal median stiffness is 1.3 m/s or less). IQR/median stiffness to assess sampling precision is 0.07 (reference: good quality data set is IQR/median stiffness of 0.15 or less). This indicates a quality data set. GALLBLADDER: Surgically absent. There is a small cystic area seen in the gallbladder fossa measuring 2.1 x 1.6 x 1.9 cm, with abutting adjacent calcifications. This is of indeterminate etiology although appears unchanged from prior CT exams dating back to 2022. This may represent sequela of spilled gallstones. COMMON BILE DUCT: Normal in caliber measuring 0.7 cm in diameter. RIGHT KIDNEY: No hydronephrosis. No renal calculi or focal parenchymal lesions. The kidney measures 12.8 cm in maximum dimension. LEFT KIDNEY: No hydronephrosis. No renal calculi or focal parenchymal lesions. The kidney measures 13.3 cm in maximum dimension. SPLEEN: Mildly enlarged. The spleen measures 14.0 cm in maximum dimension. FREE FLUID: None seen. US/US abdomen comp w elastography IMPRESSION: 1. Mild hepatic enlargement and diffusely increased echogenicity consistent with fatty infiltration. No suspicious hepatic lesion. No intrahepatic biliary dilatation. 2. Liver elastography: In the absence of other known clinical signs, measurements rule out compensated advanced chronic liver disease. If there are known clinical signs, further testing may be needed for confirmation. 3. There is a small 2.1 cm fluid collection in the gallbladder fossa, with adjacent calcifications, stable from CT exams dating back to 2022. This is benign. This may represent sequela of spilled gallstones. 4. Mild splenic enlargement. 5. Remainder of the examination is normal. REFERENCE: Society of Radiologists in Ultrasound Liver Stiffness Thresholds (2019): LIVER STIFFNESS THRESHOLDS: *Liver Stiffness equal or less than 1.3 m/s: High probability of being normal. *Liver Stiffness less than 1.7 m/s: In the absence of other known clinical signs, rules out compensated advanced chronic liver disease. *Liver Stiffness 1.7-2.1 m/s: Suggestive of compensated advanced chronic liver disease but need further test for confirmation. *Liver Stiffness over 2.1 m/s: Rules in compensated advanced chronic liver disease. *Liver Stiffness over 2.4 m/s: Suggestive of clinically significant portal hypertension. QUALITY OF DATA SET: *IQR/Median value equal or less than 0.15 implies a quality data set. *IQR/Median value over 0.15 implies a poor quality data set. SIGNIFICANT CHANGE FROM PRIOR EXAM: Significant change if liver stiffness measurement is 10% or greater from prior exam. OTHER CONSIDERATIONS: The stage of liver fibrosis may be overestimated in the setting of acute hepatitis, liver inflammation, elevated liver function tests, hepatic vascular congestion, obstructive cholestasis, non-fasting state, and infiltrative diseases such as amyloidosis and lymphoma. In some patients with NAFLD, the liver stiffness thresholds for compensated advanced chronic liver disease may be lower. In causes other than viral hepatitis and NAFLD, liver stiffness thresholds are not well established. Electronically signed by: Cameron Tucker MD 12/15/2024 09:38 AM EDT
== END 2024-12-15 08:40 | disposition home or self-care (01) ==
LOC: HO.US 08:39
PROVIDERS: PCP Family Medicine; Visit Provider Family Medicine
DX: K76.0 Fatty (change of) liver, not elsewhere classified (principal); R77.2 Abnormality of alphafetoprotein
CPT/HCPCS: 76700; 76981

== ENCOUNTER → 2024-12-15 08:41 | Outpatient (BNV) | payer MEDICARE, MEDICAID, SELFPAY | PROVIDERS: PCP Family Medicine; Visit Provider Radiology Diagnostic Radiology | DX: K76.0 Fatty (change of) liver, not elsewhere classified (principal) | CPT/HCPCS: 76700 ==

== ENCOUNTER 2025-01-06 08:23 | Outpatient (REF) | payer MEDICARE, MEDICAID, SELFPAY ==
[2025-01-06 11:13] LABS: MANUAL DIFF FLAG NO
[2025-01-06 11:22] LABS: Hematocrit 46.3 % (42.0-52.0); Hemoglobin 16.1 g/dl (14.0-18.0); Imm Gran Abs Auto 0.03 X10*3/uL (0.00-0.03); Imm Gran Pct Auto 0.4 % (0.0-0.4); Lymphocytes Absolute Auto 1.4 X10*3/uL (1.2-4.9); Mean Corpuscular HGB Conc 34.8 g/dl (31.0-36.0); Mean Corpuscular Hemoglobin 33.0 pg (27.0-33.0); Mean Corpuscular Volume 94.9 fL (80.0-98.0); NRBC Abs Auto 0.000 X10*3/uL (0.0-0.012); NRBC Pct Auto 0.0 /100WBC (0.0-0.2); Platelet Count 252 X10*3/uL (160-400); Red Blood Count 4.88 X10*6/uL (4.60-5.80); White Blood Count 7.2 X10*3/uL (4.8-10.8)
[2025-01-06 11:24] LABS: Appearance Urine Cloudy; Glucose Urine UA Negative (Negative); PH 6.0 (5.0-9.0); Specific Gravity - Urine 1.025 (1.005-1.025)
[2025-01-06 11:45] LABS: Total Hemoglobin (HGBA1C) 3983.0750 umol/L
[2025-01-06 11:51] LABS: Alanine Aminotransferase 61 U/L (0-40); Albumin Level 4.6 g/dL (3.5-5.0); Alkaline Phosphatase 65 U/L (39-117); Anion Gap 13 (12-20); Aspartate Amino Transferase 61 U/L (5-37); Blood Urea Nitrogen 13 mg/dL (9-16); Calcium 9.2 mg/dL (8.4-10.2); Carbon Dioxide 25 mmol/L (22-29); Chloride 107 mmol/L (96-108); Estimated Glomerular Filt Rate > 60; Potassium 3.9 mmol/L (3.3-5.1); Sodium 141 mmol/L (135-145); Total Protein 8.1 g/dL (6.5-8.0)
[2025-01-06 11:59] LABS: Alanine Aminotransferase 60 U/L (0-40); Albumin Level 4.6 g/dL (3.5-5.0); Alkaline Phosphatase 63 U/L (39-117); Aspartate Amino Transferase 61 U/L (5-37); Total Protein 7.9 g/dL (6.5-8.0)
[2025-01-06 14:41] LABS: Microalbum/Creatinine Ratio Ur 10.0 ug/mg cr (<30)
[2025-01-07 04:20] LABS: Syphilis Screen Reactive (Nonreactive)
[2025-01-07 05:17] LABS: HBsAGNum1 0.38 S/CO (0.00-0.99); Hepatitis B Surface Antigen Negative (Negative); ~HepC Num1 0.20 S/CO (0.00-0.79); ~Hepatitis C Antibody Nonreactive (Nonreactive)
[2025-01-07 06:47] LABS: Rubeola IgG (Measles) <13.50 AU/mL
[2025-01-07 15:23] LABS: HIV RNA PCR Qn Copies NOT DETECTED copies/mL (NOT DETECTED); HIV RNA PCR Qn Log Copies NOT DETECTED (NOT DETECTED)
[2025-01-08 22:18] LABS: TS Negative Control Passed; TS Panel A 0; TS Panel B 3; TS Positive Control Passed; TSpotTB Negative (Negative)
[2025-01-13 11:41] LABS: T.Pallidum Particle Agg Test Reactive (Nonreactive)
== END 2025-01-06 08:24 | disposition home or self-care (01) ==
LOC: HO.HHCL 08:23
PROVIDERS: Absent Provider Family Medicine; PCP Family Medicine; Visit Provider Student in an Organized Health Care Education/Training Program
DX: Z00.00 Encounter for general adult medical examination without abnormal findings (principal); Z11.3 Encounter for screening for infections with a predominantly sexual mode of transmission; I10 Essential (primary) hypertension; E78.49 Other hyperlipidemia; K76.0 Fatty (change of) liver, not elsewhere classified; J45.20 Mild intermittent asthma, uncomplicated; K21.9 Gastro-esophageal reflux disease without esophagitis; K57.90 Diverticulosis of intestine, part unspecified, without perforation or abscess without bleeding; A63.0 Anogenital (venereal) warts; M79.89 Other specified soft tissue disorders; B35.1 Tinea unguium; R97.8 Other abnormal tumor markers; B20 Human immunodeficiency virus [HIV] disease; R79.9 Abnormal finding of blood chemistry, unspecified
CPT/HCPCS: 36415; 80053; 80076; 81001; 82043; 82105; 82248; 82570; 83036; 85025; 86481; 86592; 86735; 86762; 86765; 86780; 86803; 87340; 87536